=== PATIENT | male | born 1955 | race Caucasian/White ===

== ENCOUNTER → 2017-08-30 08:22 | Outpatient (CLI) | payer OTHER, SELFPAY ==
[2017-08-30 11:15] LABS: Uric Acid 8.2 mg/dL (3.5-8.5)
== END ==
PROVIDERS: PCP Family Medicine; Visit Provider Family Medicine
DX: M79.676 Pain in unspecified toe(s) (principal)
CPT/HCPCS: 36415; 84550

== ENCOUNTER → 2018-07-15 14:29 | Outpatient (CLI) | payer OTHER, SELFPAY ==
[2018-07-15 14:57] LABS: Add Manual Diff / Slide Review NO; Basophils Absolute Auto 100 /uL (0-100); Basophils Percent Auto 0.9 % (0-2); Eosinophils Absolute Auto 300 /uL (0-450); Eosinophils Percent Auto 4.7 % (2-4); Hematocrit 43.1 % (41-53); Hemoglobin 14.7 g/dL (13.5-17.5); Lymphocytes Absolute Auto 1600 /uL (1100-4500); Lymphocytes Percent Auto 25.1 % (25-40); Mean Corpuscular HGB Conc 34.1 % (30-36); Mean Corpuscular Hemoglobin 31.6 PG (26-34); Mean Corpuscular Volume 92.6 fL (80-100); Monocytes Absolute Auto 500 /uL (0-900); Monocytes Percent Auto 7.6 % (3-14); Neutrophils Absolute Auto 4000 /uL (1500-7000); Neutrophils Percent Auto 61.7 % (50-75); Platelet Count 274 X10^3/uL (150-400); Red Blood Cell Count 4.65 X10^6/uL (4.5-5.9); Red Cell Distribution Width 14.6 % (11.6-14.8); White Blood Cell Count 6.4 X10^3/uL (4.5-11.0)
[2018-07-15 15:31] LABS: Alanine Aminotransferase 60 IU/L (21-72); Albumin 4.6 g/dL (3.5-5.0); Albumin Globulin Ratio 1.6 (1.0-2.8); Alkaline Phosphatase 61 U/L (38-126); Aspartate Aminotransferase 37 IU/L (17-59); BUN Creatinine Ratio 14.4 (6-22); Bilirubin Total 0.6 mg/dL (0.2-1.3); Blood Urea Nitrogen 13 mg/dL (9-20); Carbon Dioxide 18 mmol/L (22-32); Chloride 96 mmol/L (98-107); Cholesterol 185 mg/dL (140-199); Estimated Glomerular Filt Rate > 60.0 mL/min (>60); Globulin 2.8 g/dL (1.7-4.1); Glucose 105 mg/dL (80-110); HDL Cholesterol 49 mg/dL (40-60); HEMOLYSIS < 15 (0-50); LDL Cholesterol Calculated 120 mg/dL (<100); Potassium 4.5 mmol/L (3.4-5.1); Sodium 130 mmol/L (137-145); Total Protein 7.4 g/dL (6.3-8.2); Triglycerides 82 mg/dL (35-150)
[2018-07-15 16:00] LABS: Prostate Specific Antigen Scrn 0.421 ng/mL (0.1-4.0); Thyroid Stimulating Hormone 1.86 uIU/mL (0.47-4.68)
== END ==
PROVIDERS: PCP Family Medicine; Visit Provider Family Medicine
DX: Z00.00 Encounter for general adult medical examination without abnormal findings (principal); Z12.5 Encounter for screening for malignant neoplasm of prostate
CPT/HCPCS: 36415; 80053; 80061; 84443; 85025; G0103

== ENCOUNTER → 2019-02-12 13:22 | Outpatient (CLI) | payer OTHER, SELFPAY | PROVIDERS: PCP Family Medicine; Visit Provider Physician Assistant | DX: J02.9 Acute pharyngitis, unspecified (principal) | CPT/HCPCS: 87070 ==

== ENCOUNTER → 2019-08-26 10:43 | Outpatient (CLI) | payer OTHER, SELFPAY ==
[2019-08-26 12:27] LABS: BUN Creatinine Ratio 13.9 (6-22); Blood Urea Nitrogen 11 mg/dL (9-20); Calcium 9.7 mg/dL (8.4-10.2); Carbon Dioxide 21 mmol/L (22-32); Chloride 101 mmol/L (98-107); Cholesterol 190 mg/dL (140-199); Estimated Glomerular Filt Rate > 60.0 mL/min (>60); Glucose 112 mg/dL (80-110); HDL Cholesterol 52 mg/dL (40-60); HEMOLYSIS < 15 (0-50); LDL Cholesterol Calculated 121 mg/dL (<100); Potassium 4.5 mmol/L (3.4-5.1); Sodium 133 mmol/L (137-145); Triglycerides 84 mg/dL (35-150)
[2019-08-26 12:34] LABS: Creatinine Urine Random 55.3 mg/dL
[2019-08-26 12:47] LABS: Microalbumi Creatinin Ratio Ur 10.8 ug/mg CR (<30); Microalbumin Urine Random < 0.6 mg/dL (0-1.6)
== END ==
PROVIDERS: PCP Family Medicine; Referring Provider Family Medicine; Visit Provider Family Medicine
DX: E78.5 Hyperlipidemia, unspecified (principal); I10 Essential (primary) hypertension
CPT/HCPCS: 36415; 80048; 80061; 82043; 82570

== ENCOUNTER 2019-11-06 14:25 | Emergency (ER) | payer OTHER, SELFPAY ==
[2019-11-06 14:28] VITALS: BP 205/102; PULSE 86; RESP 23; TEMP 36.9; O2SAT 97; BMI 28.5
--- NOTE | 2019-11-06 14:41 | DI.RAD.S_ITS ---
PROCEDURE: XR CHEST 1V INDICATIONS: chest pain TECHNIQUE: One view of the chest was acquired. COMPARISON: [facility], CT, ANGIOGRAPHY CHEST, 05/08/2017, 9:15. FINDINGS: Surgical changes and devices: None. Lungs and pleura: No infiltrates. Trace blunting of the costophrenic angles bilaterally. Mediastinum: Mediastinal contours appear normal. Heart size is normal. Bones and chest wall: No suspicious bony lesions. Overlying soft tissues appear unremarkable. IMPRESSION: Trace costophrenic angle blunting possibly related to scarring versus trace effusions. Dictated by: Elvia Escobedo M.D. on 11/06/2019 at 15:04 Approved by: Elvia Escobedo M.D. on 11/06/2019 at 15:04
[2019-11-06 14:45] LABS: Add Manual Diff / Slide Review NO; Basophils Absolute Auto 0 /uL (0-100); Basophils Percent Auto 0.3 % (0-2); Eosinophils Absolute Auto 100 /uL (0-450); Eosinophils Percent Auto 1.7 % (2-4); Hematocrit 42.1 % (41-53); Hemoglobin 14.2 g/dL (13.5-17.5); Lymphocytes Absolute Auto 1800 /uL (1100-4500); Lymphocytes Percent Auto 25.4 % (25-40); Mean Corpuscular HGB Conc 33.9 % (30-36); Mean Corpuscular Hemoglobin 32.4 PG (26-34); Mean Corpuscular Volume 95.6 fL (80-100); Monocytes Absolute Auto 500 /uL (0-900); Monocytes Percent Auto 7.6 % (3-14); Neutrophils Absolute Auto 4500 /uL (1500-7000); Platelet Count 261 X10^3/uL (150-400); Red Cell Distribution Width 13.3 % (11.6-14.8)
--- NOTE | 2019-11-06 14:47 | PC.NURSE ---
xray at bedside
[2019-11-06 14:51] LABS: Prothrombin Time 11.5 SECONDS (10.1-12.7)
[2019-11-06 14:53] LABS: PTT Partial Thromboplastin Tim 31 SECONDS (26.4-36.2)
[2019-11-06 14:56] LABS: Alanine Aminotransferase 56 IU/L (<50); Albumin 4.5 g/dL (3.5-5.0); Albumin Globulin Ratio 1.4 (1.0-2.8); Alkaline Phosphatase 63 U/L (38-126); Aspartate Aminotransferase 42 IU/L (17-59); BUN Creatinine Ratio 11.8 (6-22); Bilirubin Total 0.4 mg/dL (0.2-1.3); Blood Urea Nitrogen 9 mg/dL (9-20); Calcium 9.1 mg/dL (8.4-10.2); Carbon Dioxide 24 mmol/L (22-32); Chloride 101 mmol/L (98-107); Creatine Kinase 229 U/L (55-170); Estimated Glomerular Filt Rate > 60.0 mL/min (>60); Globulin 3.2 g/dL (1.7-4.1); Glucose 112 mg/dL (80-110); HEMOLYSIS 19 (0-50); Lipase 152 U/L (23-300); Potassium 4.3 mmol/L (3.4-5.1); Sodium 134 mmol/L (137-145); Total Protein 7.7 g/dL (6.3-8.2)
[2019-11-06 15:07] LABS: Troponin I < 0.012 ng/mL (0.01-0.034)
[2019-11-06 15:11] LABS: CKMB % Relative Index 0.9 % (1.5-5.0)
--- NOTE | 2019-11-06 15:11 | PC.NURSE ---
at bedside for eval
[2019-11-06 15:19] VITALS: PULSE 69; RESP 12; O2SAT 95
--- NOTE | 2019-11-06 15:28 | ED_ITS ---
HPI - Chest Pain General Chief Complaint: Chest Pain Stated Complaint: chest pain Time Seen by Provider: 11/06/19 14:36 Source: patient Mode of arrival: Ambulatory Limitations: no limitations History of Present Illness HPI narrative: Patient here with . Patient complains of off and on left- sided chest pressure 3/5 for the past 7 days. Blood pressure management by patient at home by weight loss has helped. Since March and April of this year. Blood pressure improved earlier this year but then elevated a few weeks ago and then went down to current level now. Not had stress test in almost [address] Radha amaya. History of thoracic aneurysm without surgery. Denies any syncope numbness tingling weakness or back pain. No abdominal pain. Has off and on dizziness as well in the past 7 days. None currently. No chest pain at this time. Blood pressure noted on arrival but has improved, 140/70 Patient took full aspirin prior to arrival Related Data Previous Rx's Medication Instructions Recorded amlodipine 2.5 mg tablet 5 mg PO DAILY #120 tab 09/16/19 lisinopril 20 mg tablet 20 mg PO QDAY #90 tab 09/16/19 Allergies Allergy/AdvReac Type Severity Reaction Status Date / Time No Known Drug Allergies Allergy Verified 11/06/19 14:34 Review of Systems Review of Systems Narrative: GENERAL: Denies chills, fatigue, malaise, fever, sweats. HEENT: Denies sinus pain, ear pain, sore throat, difficulty swallowing, dizziness. RESPIRATORY: Denies dyspnea, cough, wheezing, hemoptysis, sputum. CARDIOVASCULAR: Complains of chest pain, denies palpitations, orthopnea, edema, GASTROINTESTINAL: Denies nausea, vomiting, abdominal pain, diarrhea, constipation, melena. : Denies dysuria, frequency, incontinence, hematuria, urinary retention. MUSCULOSKELETAL: denies weakness, joint pain, or bony pain SKIN: Denies rash, skin lesions, or other NEUROLOGIC: Denies weakness, headache, numbness, change in speech, confusion, seizures, incoordination. Complains of dizziness PSYCHIATRIC: No concerning psychosocial issues. 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 Gym: Cardio/muscle. Smoking Status: Former smoker alcohol intake frequency: 3 or more drinks per day Substance Use Type: does not use Exam Narrative Exam Narrative: GENERAL: patient appears stated age. Well-nourished, well- developed patient, in no distress, not toxic HEAD: Atraumatic. Normocephalic. EYES: Pupils equal round and reactive. Extraocular motions intact. No scleral icterus. No injection or drainage. ENT: Nose without bleeding, purulent drainage. Throat without erythema, tonsillar hypertrophy or exudate. Airway patent. NECK: Trachea midline. Non tender CARDIOVASCULAR: Regular rate and rhythm without murmurs, gallops, or rubs. Strong bilateral radial and carotid pulses RESPIRATORY: Clear to auscultation. Breath sounds equal bilaterally. No wheezes, rales, or rhonchi. GASTROINTESTINAL: Abdomen soft, non-tender, nondistended. EXTREMITIES: No edema or joint tenderness. BACK: Nontender without deformity or crepitance. No flank tenderness. NEURO: AOx4. SKIN: No rash or erythema of visible areas PSYCH: Not anxious, is cooperative Initial Vital Signs Initial Vital Signs: Vital Signs Temperature 98.5 F 11/06/19 14:28 Pulse Rate 86 11/06/19 14:28 Respiratory Rate 23 11/06/19 14:28 Blood Pressure 205/102 H 11/06/19 14:28 Pulse Oximetry 97 11/06/19 14:28 Course Course Course Narrative: Ongoing chest pain through his past 7 days. Currently no chest pain. No stress test in the past 30 years. Decision to Admit Date: 11/06/19 Decision to Admit time: 16:03 Orders Ordered: ED Orders 11/06/19 14:30 EKG-12 Lead Routine 11/06/19 14:39 Complete Blood Count AUTO DIFF Stat Comprehensive Metabolic Panel Stat Lipase Stat Partial Thromboplastin Time Stat Prothrombin Time INR Stat Troponin & CK Cardiac Panel Stat 11/06/19 14:41 XR chest 1V Stat 11/06/19 15:27 CT angio chest PE protocol Stat Discontinued Medications Sodium Chloride (Normal Saline 0.9%) 500 mls @ 1,000 mls/hr IV BOLUS ONE Stop: 11/06/19 16:05 Last Infusion: 11/06/19 17:30 Dose: 1,000 mls/hr Documented by: Admin: 11/06/19 16:16 Dose: 1,000 mls/hr Documented by: ROJAS Reevaluation(s) Reevaluation #1: Blood pressures improved. Currently no chest pain. Reviewed results with patient and . They agree for transfer to [facility] Time: 16:03 Consultations Consultation #1: Spoke with primary care on-call, Dr. Prabhakar, nuclear med unable to do stress test tomorrow due to scheduling overload, he was suggest patient then would need to be transferred to [place] or [place] Time: 15:47 Consultation #2: Spoke with [facility], hospitalist Dr De La Cruz Will admit Time: 16:05 Vital Signs Vital signs: Vital Signs - 8 hr 11/06/19 14:28 11/06/19 15:19 11/06/19 15:30 Temperature 98.5 F Pulse Rate 86 69 65 Respiratory Rate 23 12 11 L Blood Pressure 205/102 H Pulse Oximetry 97 95 95 11/06/19 16:05 11/06/19 17:33 Temperature Pulse Rate 58 L 68 Respiratory Rate 18 18 Blood Pressure 148/86 H 148/86 H Pulse Oximetry 96 97 MDM - Chest Pain Differential Diagnosis Differential diagnosis: Likely stable angina, unstable angina pectoris, atypical chest pain and other (Aortic dissection) Lab Data Attestation: I reviewed the patient's lab results. Result diagrams: 11/06/19 14:39 09/03/20 14:39 Labs: Lab Results 11/06/19 11/06/19 11/06/19 Range/Units 14:39 14:39 14:39 WBC 7.0 (4.5-11.0) X10^3/uL RBC 4.40 L (4.5-5.9) X10^6/uL Hgb 14.2 (13.5-17.5) g/dL Hct 42.1 (41-53) % MCV 95.6 (80-100) fL MCH 32.4 (26-34) PG MCHC 33.9 (30-36) % RDW 13.3 (11.6-14.8) % Plt Count 261 (150-400) X10^3/uL Neut % (Auto) 65.0 (50-75) % Lymph % (Auto) 25.4 (25-40) % [place] % (Auto) 7.6 (3-14) % Eos % (Auto) 1.7 L (2-4) % Baso % (Auto) 0.3 (0-2) % Neut # (Auto) 4500 (5439-5581) /uL Lymph # (Auto) 1800 (6969-1675) /uL [place] # (Auto) 500 (0-900) /uL Eos # (Auto) 100 (0-450) /uL Baso # (Auto) 0 (0-100) /uL PT 11.5 (10.1-12.7) SECONDS INR 1.0 (0.9-1.3) APTT 31 (26.4-36.2) SECONDS Sodium 134 L (137-145) mmol/L Potassium 4.3 (3.4-5.1) mmol/L Chloride 101 (98-107) mmol/L Carbon Dioxide 24 (22-32) mmol/L BUN 9 (9-20) mg/dL Creatinine 0.76 (0.66-1.25) mg/dL Estimated GFR > 60.0 (>60) mL/min BUN/Creatinine Ratio 11.8 (6-22) Glucose 112 H (80-110) mg/dL Calcium 9.1 (8.4-10.2) mg/dL Total Bilirubin 0.4 (0.2-1.3) mg/dL AST 42 (17-59) IU/L ALT 56 H (<50) IU/L Alkaline Phosphatase 63 (38-126) U/L Total Creatine Kinase 229 H (55-170) U/L CK-MB (CK-2) 2.00 (<2.37) ng/mL CK-MB (CK-2) Rel Index 0.9 L (1.5-5.0) % Troponin I < 0.012 (0.01-0.034) ng/mL Total Protein 7.7 (6.3-8.2) g/dL Albumin 4.5 (3.5-5.0) g/dL Globulin 3.2 (1.7-4.1) g/dL Albumin/Globulin Ratio 1.4 (1.0-2.8) Lipase 152 (23-300) U/L Urine Dip Bedside Urine Glucose Negative Bedside Urine Bilirubin - Negative Bedside Urine Ketone - Negative Urine Specific [place] 1.005 Bedside Urine Occult Blood - Negative Bedside Urine pH 6.0 Bedside Urine Protein - Negative Bedside Urine Urobilinogen +/- 1mg Bedside Urine Nitrite - Negative Bedside Urine Leukocytes - Negative Esterase Imaging Data Chest x-ray: Radiologist's Impression: [address] [address] XRay Report Signed Patient: Theo Kovacs JMR#: [id number] : 6Acct:[id number] Age/Sex: 64 / MDate of Service: 11/06/19 Loc: ED Accession Number: [id number] Procedure: XR chest 1V Ordering Provider: Shun Thompson MD PROCEDURE: XR CHEST 1V INDICATIONS: chest pain TECHNIQUE: One view of the chest was acquired. COMPARISON: [facility], CT, ANGIOGRAPHY CHEST, 05/08/2017, 9:15. FINDINGS: Surgical changes and devices: None. Lungs and pleura: No infiltrates. Trace blunting of the costophrenic angles bilaterally. Mediastinum: Mediastinal contours appear normal. Heart size is normal. Bones and chest wall: No suspicious bony lesions. Overlying soft tissues appear unremarkable. IMPRESSION: Trace costophrenic angle blunting possibly related to scarring versus trace effusions. Dictated by: Elvia Escobedo M.D. on 11/06/2019 at 15:04 Approved by: Elvia Escobedo M.D. on 11/06/2019 at 15:04 CT scan - chest: Radiologist's Impression: [place] [id number] [place] [id number] [address] Scan Report Signed Patient: Theo Kovacs JMR#: [id number] : 6Acct:[id number] Age/Sex: 64 / MDate of Service: 11/06/19 Loc: ED Accession Number: [id number] Procedure: CT angio chest PE protocol Ordering Provider: Shun Thompson MD PROCEDURE: CT ANGIO CHEST PE PROTOCOL INDICATIONS: Chest pain TECHNIQUE: After the administration of intravenous contrast, 2 mm thick sections acquired from the pulmonary apices to the posterior costophrenic angles. 3-dimensional maximum intensity projection (MIP) coronal and sagittal reformats were then acquired through the thorax. For radiation dose reduction, the following was used: automated exposure control, adjustment of mA and/or kV according to patient size. COMPARISON: [facility], CR, XR CHEST 1V, 11/06/2019, 14:43. [facility], CT, ANGIOGRAPHY CHEST, 05/08/2017, 9:15. [facility], CT, ANGIOGRAPHY CHEST, 04/19/2016, 9:41. FINDINGS: Image quality: Excellent. Pulmonary arteries: Pulmonary arteries are normal in size, and demonstrate no intraluminal filling defects to suggest central pulmonary embolism. Lungs and pleura: 3 mm right middle lobe nodule series 5, image 172. While it is relatively stable since prior exam in 2018, it previously measured approximately 18 mm in 2017. No pleural effusions or pneumothorax. Central and peripheral airways are patent. Mediastinum: Heart size is normal, without pericardial effusion. No mediastinal or hilar adenopathy. Thoracic aorta is normal in caliber and enhancement. Esophagus is normal in caliber, with mild hiatal hernia. Bones and chest wall: No suspicious bony lesions. Ribs and thoracic spine appear intact throughout. Thyroid gland is unremarkable . No axillary or supraclavicular adenopathy. Abdomen: Visualized upper abdominal solid organs appear normal in the early arterial phase of enhancement. IMPRESSION: 1. No pulmonary embolism. No effusions. 2. 3 mm right middle lobe nodule, increased in size from 18 mm in 2017, although cysts stable since 2018. 6-12 month interval follow-up is recommended to document s tability. Dictated by: Elvia Escobedo M.D. on 11/06/2019 at 15:43 Approved by: Elvia Escobedo M.D. on 11/06/2019 at 15:47 ECG Data Attestation: I personally reviewed and interpreted this ECG as follows: Interpretation: Sinus rhythm, rate 73, no ST elevation or depression MDM Narrative Medical decision making narrative: Appropriate for admission/transfer as patient has had waxing waning left-sided chest pressure. Last stress test over 30 years ago. Discharge Plan Departure Patient Disposition: [facility] Clinical Impression: Chest pain Qualifiers: Chest pain type: unspecified Qualified Code(s): R07.9 - Chest pain, unspecified Discharge Date/Time: 11/06/19 17:34 Prescriptions: No Action amlodipine 2.5 mg tablet 5 mg PO DAILY Qty: 120 RF: 3 lisinopril 20 mg tablet 20 mg PO QDAY Qty: 90 RF: 3 Referrals: Viola Garcia MD [Primary Care Provider] -
[2019-11-06 15:30] VITALS: PULSE 65; RESP 11; O2SAT 95
[2019-11-06 16:05] VITALS: BP 148/86; PULSE 58; RESP 18; O2SAT 96
[2019-11-06] MEDS: SODIUM CHLORIDE 0.9% 500 ML 1000 ML IV (16:16)
[2019-11-06 17:33] VITALS: BP 148/86; PULSE 68; RESP 18; O2SAT 97
== END 2019-11-06 17:34 | disposition short-term general hospital (02) ==
PROVIDERS: Emergency Provider Emergency Medicine; PCP Family Medicine
DX: R07.9 Chest pain, unspecified (principal); R42 Dizziness and giddiness
CPT/HCPCS: 36415; 71045; 71275; 80053; 81003; 82550; 82553; 83690; 84484; 85025; 85610; 85730; 93005; 96360; 99284; Q9967

== ENCOUNTER → 2020-09-10 09:46 | Outpatient (CLI) | payer MEDICARE, SELFPAY ==
[2020-09-10 10:50] LABS: Alanine Aminotransferase 64 IU/L (<50); Albumin 4.2 g/dL (3.5-5.0); Albumin Globulin Ratio 1.5 (1.0-2.8); Alkaline Phosphatase 50 U/L (38-126); Aspartate Aminotransferase 47 IU/L (17-59); Bilirubin Total 0.3 mg/dL (0.2-1.3); Blood Urea Nitrogen 15 mg/dL (9-20); Calcium 9.2 mg/dL (8.4-10.2); Carbon Dioxide 24 mmol/L (22-32); Chloride 105 mmol/L (98-107); Cholesterol 159 mg/dL (140-199); Estimated Glomerular Filt Rate > 60.0 mL/min (>60); Globulin 2.8 g/dL (1.7-4.1); HDL Cholesterol 51 mg/dL (40-60); HEMOLYSIS < 15 (0-50); LDL Cholesterol Calculated 93 mg/dL (<100); Potassium 4.3 mmol/L (3.4-5.1); Sodium 137 mmol/L (137-145); Triglycerides 76 mg/dL (35-150)
[2020-09-10 11:06] LABS: Glucose 123 mg/dL (80-110)
[2020-09-10 11:30] LABS: Creatinine Urine Random 139.1 mg/dL
[2020-09-10 11:34] LABS: Microalbumi Creatinin Ratio Ur 12.2 ug/mg CR (<30); Microalbumin Urine Random 1.7 mg/dL (0-1.6)
== END ==
PROVIDERS: PCP Family Medicine; Referring Provider Family Medicine; Visit Provider Family Medicine
DX: I10 Essential (primary) hypertension (principal)
CPT/HCPCS: 36415; 80053; 80061; 82043; 82570

== ENCOUNTER 2020-10-26 08:48 | Emergency (ER) | payer MEDICARE, SELFPAY ==
[2020-10-26 09:13] VITALS: BP 149/89; PULSE 96; RESP 18; TEMP 36.5; O2SAT 96; BMI 29.9
--- NOTE | 2020-10-26 09:58 | ED.GENADULT ---
HPI - General Adult General Chief complaint: Abdominal Pain Stated complaint: LT SIDE PAIN/LOWER ABDOMINAL Time Seen by Provider: 10/26/20 09:54 History of Present Illness HPI narrative: Patient is a 65-year-old male here for evaluation of 3-4 days of left-sided abdominal discomfort. Has not had any nausea or vomiting. No fevers. No urinary symptoms. Has not had a bowel movement in the past couple days. Has had colonoscopies in the past and all have been unremarkable per his report. He has had his gallbladder removed and also hernia repairs in the past. Has not tried anything for his symptoms. Has not seen anybody for symptoms prior to this evaluation. Related Data Previous Rx's Medication Instructions Recorded amlodipine 2.5 mg tablet 5 mg PO DAILY #180 tab 09/13/20 indomethacin 50 mg capsule 50 mg PO TID PRN #60 cap 09/13/20 lisinopril 20 mg tablet See Rx Instructions .ROUTE 09/13/20 .COMPLEX #90 tab amoxicillin 875 mg-potassium 1 tab PO BID 10 Days #20 tab 10/26/20 clavulanate 125 mg tablet (Augmentin) Allergies Allergy/AdvReac Type Severity Reaction Status Date / Time No Known Drug Allergies Allergy Verified 09/09/20 11:10 Review of Systems Constitutional Constitutional: Denies fever(s) Cardiovascular Cardiovascular: Reports system reviewed and no additional complaints, except as documented Respiratory Respiratory: Reports system reviewed and no additional complaints, except as documented Gastrointestinal Gastrointestinal: Reports as per HPI Genitourinary Genitourinary: Reports system reviewed and no additional complaints, except as documented Musculoskeletal Musculoskeletal: Reports back pain Integumentary/Breasts Skin/Breast: Reports system reviewed and no additional complaints, except as documented Neurologic Neurologic: Reports system reviewed and no additional complaints, except as documented Hematologic/Lymphatic On Anticoagulants: No Allergic/Immunologic Allergic/Immunologic: Reports system reviewed and no additional complaints, except as documented Patient History Medical History (Updated 10/26/20 @ 13:21 by Joo Germain DO) ADHD Essential hypertension (03/29/16) Hyponatremia (04/05/16) Thoracic aortic aneurysm without rupture (04/05/16) Surgical History Status post cholecystectomy (08/19/14) Status post hernia repair Social History (Reviewed 10/26/20 @ 10:00 by TARAS Dunn education level: other occupational status: other 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 Gym: Cardio/muscle. Smoking Status: Former smoker alcohol intake frequency: 3 or more drinks per day Substance Use Type: does not use Exam Initial Vital Signs Initial Vital Signs: Vital Signs Temperature 97.7 F 10/26/20 09:13 Pulse Rate 96 H 10/26/20 09:13 Respiratory Rate 18 10/26/20 09:13 Blood Pressure 149/89 H 10/26/20 09:13 Pulse Oximetry 96 10/26/20 09:13 Const General: cooperative and comfortable HENMT Head: normal to inspection and normocephalic Resp Effort & Inspection: normal respiratory effort Cardio Rate: regular rate GI Inspection: normal to inspection Palpation: soft and tender (Left-sided abdomen) Back/Spine/Pelvis Back: No CVA tenderness Skin General: no rashes or lesions noted Neuro General: patient alert, patient awake, patient oriented x3 and moves all extremities Extrem General: normal to inspection and capillary refill normal Psych Appearance: grossly normal and well kempt Course Orders Ordered: ED Orders 10/26/20 09:57 Complete Blood Count AUTO DIFF Stat Comprehensive Metabolic Panel Stat Lipase Stat 10/26/20 10:23 EKG-12 Lead Stat 10/26/20 10:38 CT abdomen pelvis w con Stat Discontinued Medications Sodium Chloride (Normal Saline 0.9%) 1,000 mls @ 1,000 mls/hr IV BOLUS ONE Stop: 10/26/20 10:56 Last Infusion: 10/26/20 12:47 Dose: 0 mls/hr Documented by: Admin: 10/26/20 11:37 Dose: 1,000 mls/hr Documented by: JOE Vital Signs Vital signs: Vital Signs - 8 hr 10/26/20 09:13 10/26/20 11:35 10/26/20 12:30 Temperature 97.7 F Pulse Rate 96 H 85 79 Respiratory Rate 18 16 15 Blood Pressure 149/89 H 153/85 H 142/79 H Pulse Oximetry 96 97 96 10/26/20 13:10 Temperature Pulse Rate 79 Respiratory Rate 16 Blood Pressure 136/79 Pulse Oximetry 98 Medical Decision Making Lab Data Lab results reviewed: Yes I reviewed the patient's lab results. Result diagrams: 10/26/20 09:57 10/26/20 09:57 Labs: Lab Results 10/26/20 10/26/20 Range/Units 09:57 09:57 WBC 9.7 (4.5-11.0) X10^3/uL RBC 4.51 (4.5-5.9) X10^6/uL Hgb 14.6 (13.5-17.5) g/dL Hct 42.8 (41-53) % MCV 94.9 (80-100) fL MCH 32.3 (26-34) PG MCHC 34.1 (30-36) % RDW 13.3 (11.6-14.8) % Plt Count 269 (150-400) X10^3/uL Neut % (Auto) 79.2 H (50-75) % Lymph % (Auto) 12.3 L (25-40) % [place] % (Auto) 7.8 (3-14) % Eos % (Auto) 0.5 L (2-4) % Baso % (Auto) 0.2 (0-2) % Neut # (Auto) 7700 H (6994-6274) /uL Lymph # (Auto) 1200 (6459-8276) /uL [place] # (Auto) 800 (0-900) /uL Eos # (Auto) 0 (0-450) /uL Baso # (Auto) 0 (0-100) /uL Sodium 131 L (137-145) mmol/L Potassium 4.4 (3.4-5.1) mmol/L Chloride 99 (98-107) mmol/L Carbon Dioxide 23 (22-32) mmol/L BUN 12 (9-20) mg/dL Creatinine 0.83 (0.66-1.25) mg/dL Estimated GFR > 60.0 (>60) mL/min BUN/Creatinine Ratio 14.5 (6-22) Glucose 120 H (80-110) mg/dL Calcium 9.6 (8.4-10.2) mg/dL Total Bilirubin 0.6 (0.2-1.3) mg/dL AST 70 H (17-59) IU/L ALT 117 H (<50) IU/L Alkaline Phosphatase 61 (38-126) U/L Total Protein 7.6 (6.3-8.2) g/dL Albumin 4.2 (3.5-5.0) g/dL Globulin 3.4 (1.7-4.1) g/dL Albumin/Globulin Ratio 1.2 (1.0-2.8) Lipase 169 (23-300) U/L Urine Dip Bedside Urine Glucose Negative Bedside Urine Bilirubin - Negative Bedside Urine Ketone + 15 Urine Specific [place] 1.010 Bedside Urine Occult Blood - Negative Bedside Urine pH 6.0 Bedside Urine Protein - Negative Bedside Urine Urobilinogen - Negative Bedside Urine Nitrite - Negative Bedside Urine Leukocytes - Negative Esterase Point of care testing: Urine Dip Bedside Urine Glucose Negative Bedside Urine Bilirubin - Negative Bedside Urine Ketone + 15 Urine Specific [place] 1.010 Bedside Urine Occult Blood - Negative Bedside Urine pH 6.0 Bedside Urine Protein - Negative Bedside Urine Urobilinogen - Negative Bedside Urine Nitrite - Negative Bedside Urine Leukocytes - Negative Esterase Imaging Data CT scan - abdomen/pelvis: Radiologist's Impression: [address] [id number] Scan ReportSigned Patient: Theo Kovacs JMR#: [id number]: 6Acct:[id number]/Sex: 65 / MDate of Service: 10/26/20Loc: EDAccession Number: [id number] Procedure: CT abdomen pelvis w con Ordering Provider: Joo Germain D.O. PROCEDURE: CT ABDOMEN PELVIS W CON INDICATIONS: Left-sided abdominal pain TECHNIQUE: After the administration of intravenous contrast, axial sections acquired from the lung bases to the pubic symphysis. Coronal and sagittal reformats were performed. For radiation dose reduction, the following was used: automated exposure control, adjustment of mA and/or kV according to patient size. COMPARISON: [facility], CT, CT ANGIO CHEST PE PROTOCOL, 11/06/2019, 15:29. FINDINGS: Image quality: Excellent. Lung bases: Mild right basilar infiltrate or atelectasis. Small hiatal hernia. Heart: Heart size is normal. There is ifct-fa-bhcfjigc coronary artery calcification. ABDOMEN: Liver: Liver is normal in size. There is hepatic steatosis. Gallbladder: Surgically absent Biliary ducts: Unremarkable. Pancreas: Unremarkable. Spleen: Unremarkable. Adrenal Glands: Unremarkable. Kidneys and Ureters: Unremarkable. Stomach and Bowel: Stomach, small bowel loops, and colon are normal in caliber. There are scattered colonic diverticula. There is mild focal thickening and pericolonic stranding the descending colon involving the colonic diverticulum consistent with acute diverticulitis. There is a appendicoliths at the base of the appendix. Appendix is normal in caliber without periappendiceal stranding. Peritoneum: No abnormal intraperitoneal fluid. No free air. Ventral Wall: No hernias. Abdominal Nodes: No retroperitoneal or mesenteric adenopathy by size criteria. Vessels: Aorta and inferior vena cava are normal in size. Taoavceu-[id number] atherosclerotic calcifications. PELVIS: Pelvic Organs: Unremarkable. Bladder: Unremarkable. Pelvic Nodes: No enlarged lymph nodes. Miscellaneous: Small fat containing right inguinal hernia is seen. Bones: Moderate to severe degenerative changes in lumbar spine. IMPRESSION: 1. Acute diverticulitis of the descending colon. 2. Mild right basilar infiltrate or atelectasis. 3. Hepatic steatosis. 4. Small hiatal hernia. Dictated by: Dequan Castrejon M.D. on 10/26/2020 at 12:27 Approved by: Dequan aCstrejon M.D. on 10/26/2020 at 12:34 ECG Data Attestation: I personally reviewed and interpreted this ECG as follows: Interpretation: Sinus rhythm Ventricular rate 90 Normal axis Normal QRS Normal QTC No ST T wave changes MDM Narrative Medical decision making narrative: Labs are unremarkable. CT scan does show acute diverticulitis without signs of abscess or perforation. I did discuss the diagnosis with the patient and family at bedside. Given his history of an aortic aneurysm we will hold on given any Cipro and will send him home on Augmentin. Patient was given return precautions and follow-up instructions. He expressed understanding and agreement. Discharge Plan Departure Patient Disposition: Home Clinical Impression: Diverticulitis Instructions: DI for Diverticulitis Activity Restrictions/Additional Instructions: Antibiotics were electronically transmitted to [employer]. Please start taking them as directed. Contact your primary doctor for a follow-up. Return to the emergency department for new or worsening symptoms. Prescriptions: New amoxicillin-pot clavulanate [Augmentin] 875-125 mg tablet 1 tab PO BID 10 Days Qty: 20 RF: 0 No Action amlodipine 2.5 mg tablet 5 mg PO DAILY Qty: 180 RF: 2 lisinopril 20 mg tablet See Rx Instructions .ROUTE .COMPLEX Qty: 90 RF: 2 indomethacin 50 mg capsule 50 mg PO TID PRN (Reason: gout flareups) Qty: 60 RF: 1 Referrals: Viola Garcia MD [Primary Care Provider] -
[2020-10-26 10:19] LABS: Add Manual Diff / Slide Review NO; Basophils Absolute Auto 0 /uL (0-100); Basophils Percent Auto 0.2 % (0-2); Eosinophils Absolute Auto 0 /uL (0-450); Eosinophils Percent Auto 0.5 % (2-4); Hematocrit 42.8 % (41-53); Hemoglobin 14.6 g/dL (13.5-17.5); Lymphocytes Absolute Auto 1200 /uL (1100-4500); Lymphocytes Percent Auto 12.3 % (25-40); Mean Corpuscular HGB Conc 34.1 % (30-36); Mean Corpuscular Hemoglobin 32.3 PG (26-34); Mean Corpuscular Volume 94.9 fL (80-100); Monocytes Absolute Auto 800 /uL (0-900); Monocytes Percent Auto 7.8 % (3-14); Neutrophils Absolute Auto 7700 /uL (1500-7000); Neutrophils Percent Auto 79.2 % (50-75); Platelet Count 269 X10^3/uL (150-400); Red Blood Cell Count 4.51 X10^6/uL (4.5-5.9); Red Cell Distribution Width 13.3 % (11.6-14.8); White Blood Cell Count 9.7 X10^3/uL (4.5-11.0)
[2020-10-26 10:37] LABS: Alanine Aminotransferase 117 IU/L (<50); Albumin 4.2 g/dL (3.5-5.0); Albumin Globulin Ratio 1.2 (1.0-2.8); Alkaline Phosphatase 61 U/L (38-126); Aspartate Aminotransferase 70 IU/L (17-59); BUN Creatinine Ratio 14.5 (6-22); Bilirubin Total 0.6 mg/dL (0.2-1.3); Blood Urea Nitrogen 12 mg/dL (9-20); Calcium 9.6 mg/dL (8.4-10.2); Carbon Dioxide 23 mmol/L (22-32); Chloride 99 mmol/L (98-107); Estimated Glomerular Filt Rate > 60.0 mL/min (>60); Globulin 3.4 g/dL (1.7-4.1); Glucose 120 mg/dL (80-110); HEMOLYSIS < 15 (0-50); Lipase 169 U/L (23-300); Potassium 4.4 mmol/L (3.4-5.1); Sodium 131 mmol/L (137-145); Total Protein 7.6 g/dL (6.3-8.2)
--- NOTE | 2020-10-26 10:38 | DI.CT.S_ITS ---
PROCEDURE: CT ABDOMEN PELVIS W CON INDICATIONS: Left-sided abdominal pain TECHNIQUE: After the administration of intravenous contrast, axial sections acquired from the lung bases to the pubic symphysis. Coronal and sagittal reformats were performed. For radiation dose reduction, the following was used: automated exposure control, adjustment of mA and/or kV according to patient size. COMPARISON: [facility], CT, CT ANGIO CHEST PE PROTOCOL, 11/06/2019, 15:29. FINDINGS: Image quality: Excellent. Lung bases: Mild right basilar infiltrate or atelectasis. Small hiatal hernia. Heart: Heart size is normal. There is [id number] coronary artery calcification. ABDOMEN: Liver: Liver is normal in size. There is hepatic steatosis. Gallbladder: Surgically absent Biliary ducts: Unremarkable. Pancreas: Unremarkable. Spleen: Unremarkable. Adrenal Glands: Unremarkable. Kidneys and Ureters: Unremarkable. Stomach and Bowel: Stomach, small bowel loops, and colon are normal in caliber. There are scattered colonic diverticula. There is mild focal thickening and pericolonic stranding the descending colon involving the colonic diverticulum consistent with acute diverticulitis. There is a appendicoliths at the base of the appendix. Appendix is normal in caliber without periappendiceal stranding. Peritoneum: No abnormal intraperitoneal fluid. No free air. Ventral Wall: No hernias. Abdominal Nodes: No retroperitoneal or mesenteric adenopathy by size criteria. Vessels: Aorta and inferior vena cava are normal in size. [id number] atherosclerotic calcifications. PELVIS: Pelvic Organs: Unremarkable. Bladder: Unremarkable. Pelvic Nodes: No enlarged lymph nodes. Miscellaneous: Small fat containing right inguinal hernia is seen. Bones: Moderate to severe degenerative changes in lumbar spine. IMPRESSION: 1. Acute diverticulitis of the descending colon. 2. Mild right basilar infiltrate or atelectasis. 3. Hepatic steatosis. 4. Small hiatal hernia. Dictated by: Dequan Castrejon M.D. on 10/26/2020 at 12:27 Approved by: Dequan Castrejon M.D. on 10/26/2020 at 12:34
[2020-10-26 11:35] VITALS: BP 153/85; PULSE 85; RESP 16; O2SAT 97
[2020-10-26] MEDS: SODIUM CHLORIDE 0.9% 1,000 ML 1000 ML IV (11:37)
[2020-10-26 12:30] VITALS: BP 142/79; PULSE 79; RESP 15; O2SAT 96
[2020-10-26 13:10] VITALS: BP 136/79; PULSE 79; RESP 16; O2SAT 98
== END 2020-10-26 13:31 | disposition home or self-care (01) ==
PROVIDERS: Emergency Provider Emergency Medicine; PCP Family Medicine
DX: K57.92 Diverticulitis of intestine, part unspecified, without perforation or abscess without bleeding (principal); R10.9 Unspecified abdominal pain
CPT/HCPCS: 36415; 74177; 80053; 81003; 83690; 85025; 93005; 93010; 96360; 99284; Q9967

== ENCOUNTER → 2020-11-01 11:51 | Outpatient (CLI) | payer MEDICARE, SELFPAY ==
[2020-11-01 13:26] LABS: Hemoglobin A1C% w Est Avg Glu 5.9 % (4.0-6.0)
== END ==
PROVIDERS: PCP Family Medicine; Referring Provider Family Medicine; Visit Provider Family Medicine
DX: R73.09 Other abnormal glucose (principal)
CPT/HCPCS: 36415; 83036

== ENCOUNTER 2020-11-11 10:21 | Emergency (ER) | payer MEDICARE, OTHER, SELFPAY ==
[2020-11-11 10:24] VITALS: BP 188/103; PULSE 64; RESP 18; TEMP 36.3; O2SAT 97; BMI 28.5
[2020-11-11 11:37] VITALS: BP 159/90; PULSE 52; O2SAT 99
[2020-11-11 11:40] VITALS: RESP 12
--- NOTE | 2020-11-11 11:55 | ED_ITS ---
HPI - General Adult General Chief complaint: Urogenital-Male Stated complaint: Thinks kidney related issues-pain Time Seen by Provider: 11/11/20 10:55 Source: patient Mode of arrival: Ambulatory Limitations: no limitations History of Present Illness HPI narrative: Patient is a 65-year-old male. Was recently diagnosed with diverticulitis and is completing a course of Augmentin for this. He states that earlier today he started noticing pain in the right flank/lower back. Was a fairly sudden onset. At the time of my evaluation he feels like his symptoms have improved somewhat. Does not hurt with touching the area. No rashes. No fevers. No urinary symptoms. No change in bowel habits. He states that the pain does not occur when he bends forward but when he stands up from bending forward he can reproduce the pain. Related Data Home Medications Medication Instructions Recorded Confirmed amoxicillin 875 mg-potassium 1 tab PO BID 11/11/20 11/11/20 clavulanate 125 mg tablet lisinopril 20 mg tablet 20 mg PO QAM 11/11/20 11/11/20 Previous Rx's Medication Instructions Recorded amlodipine 2.5 mg tablet 5 mg PO DAILY #180 tab 09/13/20 indomethacin 50 mg capsule 50 mg PO TID PRN #60 cap 09/13/20 Allergies Allergy/AdvReac Type Severity Reaction Status Date / Time No Known Drug Allergies Allergy Verified 11/11/20 10:29 Review of Systems Constitutional Constitutional: Denies fever(s) and Denies headache(s) Eyes Eyes: Reports system reviewed and no additional complaints, except as documented ENT Ears, Nose, Mouth, and Throat: Denies headache(s) Cardiovascular Cardiovascular: Denies chest pain and Denies dyspnea Respiratory Respiratory: Denies dyspnea Gastrointestinal Gastrointestinal: Denies abdominal pain, Denies nausea and Denies vomiting Genitourinary Genitourinary: Reports system reviewed and no additional complaints, except as documented Musculoskeletal Musculoskeletal: Reports back pain Integumentary/Breasts Skin/Breast: Reports system reviewed and no additional complaints, except as documented Neurologic Neurologic: Denies headache(s) Hematologic/Lymphatic On Anticoagulants: No Allergic/Immunologic Allergic/Immunologic: Reports system reviewed and no additional complaints, except as documented Patient History Medical History ADHD Essential hypertension (03/29/16) Hyponatremia (04/05/16) Pre-diabetes Thoracic aortic aneurysm without rupture (04/05/16) Surgical History Status post cholecystectomy (08/19/14) Status post hernia repair Social History education level: other occupational status: other 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 Gym: Cardio/muscle. Smoking Status: Former smoker alcohol intake frequency: a few times a month Substance Use Type: does not use Exam Initial Vital Signs Initial Vital Signs: Vital Signs Temperature 97.4 F L 11/11/20 10:24 Pulse Rate 64 11/11/20 10:24 Respiratory Rate 18 11/11/20 10:24 Blood Pressure 188/103 H 11/11/20 10:24 Pulse Oximetry 97 11/11/20 10:24 Const General: cooperative, healthy appearing and comfortable HENMT Head: normal to inspection and normocephalic Resp Effort & Inspection: normal respiratory effort Auscultation: clear to auscultation bilaterally Cardio Rate: regular rate Rhythm: regular rhythm GI Inspection: normal to inspection Palpation: soft Back/Spine/Pelvis Back: No CVA tenderness Skin General: no rashes or lesions noted Neuro General: patient alert, patient awake, patient oriented x3 and moves all extremities Extrem General: capillary refill normal Psych Appearance: grossly normal and well kempt Scores GCS [place] coma scale eye opening: Spontaneous Alex coma scale verbal response: Orientated Alex coma scale motor response: Obey commands [place] coma scale total score: 15 Course Vital Signs Vital signs: Vital Signs - 8 hr 11/11/20 10:24 11/11/20 11:37 11/11/20 11:40 Temperature 97.4 F L Pulse Rate 64 52 L Respiratory Rate 18 12 Blood Pressure 188/103 H 159/90 H Pulse Oximetry 97 99 Medical Decision Making Lab Data Labs: Urine Dip Bedside Urine Glucose Negative Bedside Urine Bilirubin - Negative Bedside Urine Ketone +/- 5 Urine Specific [place] 1.020 Bedside Urine Occult Blood - Negative Bedside Urine pH 6.0 Bedside Urine Protein - Negative Bedside Urine Urobilinogen - Negative Bedside Urine Nitrite - Negative Bedside Urine Leukocytes - Negative Esterase Point of care testing: Urine Dip Bedside Urine Glucose Negative Bedside Urine Bilirubin - Negative Bedside Urine Ketone +/- 5 Urine Specific [place] 1.020 Bedside Urine Occult Blood - Negative Bedside Urine pH 6.0 Bedside Urine Protein - Negative Bedside Urine Urobilinogen - Negative Bedside Urine Nitrite - Negative Bedside Urine Leukocytes - Negative Esterase MDM Narrative Medical decision making narrative: Urinalysis does not show any signs of infection. Has no blood in his urine. Low suspicion for pyelonephritis. Low suspicion for worsening symptoms related to his diverticulitis. He has no rash over the area concerning for zoster. His symptoms have improved since the onset and given the fact that it is positional when he stands up I suspect this is musculoskeletal on etiology. I discussed this with him. We discussed return precautions and follow-up instructions. Patient could be safely discharged home without further workup. He expressed understanding and agreement. Discharge Plan Departure Patient Disposition: Home Clinical Impression: Mid-back pain, acute Instructions: DI for Low Back Pain Activity Restrictions/Additional Instructions: You have no restrictions on any of your activities. I do suspect this is a musculoskeletal etiology. Contact your primary doctor for a follow-up. Return to the emergency department for any new or worsening symptoms Prescriptions: No Action amlodipine 2.5 mg tablet 5 mg PO DAILY Qty: 180 RF: 2 indomethacin 50 mg capsule 50 mg PO TID PRN (Reason: gout flareups) Qty: 60 RF: 1 amoxicillin-pot clavulanate 875-125 mg tablet 1 tab PO BID RF: 0 lisinopril 20 mg tablet 20 mg PO QAM RF: 0 Referrals: Viola Garcia MD [Primary Care Provider] -
== END 2020-11-11 12:01 | disposition home or self-care (01) ==
PROVIDERS: Emergency Provider Emergency Medicine; PCP Family Medicine
DX: M54.9 Dorsalgia, unspecified (principal)
CPT/HCPCS: 81003; 99282

== ENCOUNTER → 2021-01-07 10:13 | Outpatient (CLI) | payer MEDICARE, OTHER, SELFPAY ==
[2021-01-07] MEDS: COVID-19 VACC #3, MRNA(MOD) 50 MCG/0.25 ML VIAL IM (10:22)
== END ==
PROVIDERS: PCP Family Medicine; Visit Provider Internal Medicine
DX: Z23 Encounter for immunization (principal)
CPT/HCPCS: 0013A; 91301

== ENCOUNTER → 2021-02-18 08:38 | Outpatient (CLI) | payer MEDICARE, OTHER, SELFPAY | PROVIDERS: PCP Family Medicine; Visit Provider Physician Assistant | DX: R30.0 Dysuria (principal) | CPT/HCPCS: 87086 ==

== ENCOUNTER → 2021-12-08 09:10 | Outpatient (CLI) | payer MEDICARE, OTHER, SELFPAY ==
[2021-12-08 10:34] LABS: Creatinine Urine Random 110.3 mg/dL
[2021-12-08 10:38] LABS: Microalbumi Creatinin Ratio Ur 25.3 ug/mg CR (<30); Microalbumin Urine Random 2.8 mg/dL (0-1.6)
[2021-12-08 10:50] LABS: Hemoglobin A1C% w Est Avg Glu 6.1 % (4.0-6.0)
[2021-12-08 10:54] LABS: Alanine Aminotransferase 52 IU/L (<50); Albumin 4.5 g/dL (3.5-5.0); Albumin Globulin Ratio 1.4 (1.0-2.8); Alkaline Phosphatase 57 U/L (38-126); Aspartate Aminotransferase 36 IU/L (17-59); BUN Creatinine Ratio 19.5 (6-22); Bilirubin Total 0.4 mg/dL (0.2-1.3); Blood Urea Nitrogen 15 mg/dL (9-20); Calcium 9.8 mg/dL (8.4-10.2); Carbon Dioxide 25 mmol/L (22-32); Chloride 103 mmol/L (98-107); Cholesterol 214 mg/dL (140-199); Estimated Glomerular Filt Rate > 60 mL/min (>60); Globulin 3.2 g/dL (1.7-4.1); Glucose 126 mg/dL (80-110); HDL Cholesterol 52 mg/dL (40-60); HEMOLYSIS < 15 (0-50); LDL Cholesterol Calculated 133 mg/dL (<100); Potassium 4.8 mmol/L (3.4-5.1); Sodium 139 mmol/L (137-145); Total Protein 7.7 g/dL (6.3-8.2); Triglycerides 143 mg/dL (35-150)
== END ==
PROVIDERS: PCP Family Medicine; Referring Provider Family Medicine; Visit Provider Family Medicine
DX: R73.03 Prediabetes (principal); I10 Essential (primary) hypertension
CPT/HCPCS: 36415; 80053; 80061; 82043; 82570; 83036

== ENCOUNTER 2022-08-07 13:36 | Inpatient (IN) | payer MEDICARE, OTHER, SELFPAY ==
[2022-08-07] VITALS (19 sets, daily range): BP systolic 136–174; BP diastolic 63–78; PULSE 94–123; RESP 16–40; TEMP 36.6–37.9; O2SAT 94–100; BMI 31.8; BMI 31.0
--- NOTE | 2022-08-07 13:59 | DI.RAD.S_ITS ---
PROCEDURE: XR CHEST 1V INDICATIONS: Shortness of breath TECHNIQUE: One view of the chest was acquired. COMPARISON: [facility], CR, XR CHEST 1V, 11/06/2019, 14:43. FINDINGS: Surgical changes and devices: None. Lungs and pleura: Lungs are clear. No pleural effusions or pneumothorax. Mediastinum: Mediastinal contours appear normal. Heart size is normal. Bones and chest wall: No suspicious bony lesions. Overlying soft tissues appear unremarkable. IMPRESSION: No evidence acute pulmonary process. Dictated by: Dimitrios Bryant M.D. on 08/07/2022 at 14:33 Approved by: Dimitrios Bryant M.D. on 08/07/2022 at 14:33
[2022-08-07 14:29] LABS: Add Manual Diff / Slide Review NO; Basophils Absolute Auto 100 /uL (0-100); Basophils Percent Auto 0.9 % (0-2); Eosinophils Absolute Auto 0 /uL (0-450); Eosinophils Percent Auto 0.5 % (2-4); Hematocrit 34.4 % (41-53); Hemoglobin 12.1 g/dL (13.5-17.5); Lymphocytes Absolute Auto 700 /uL (1100-4500); Lymphocytes Percent Auto 10.1 % (25-40); Mean Corpuscular HGB Conc 35.1 % (30-36); Mean Corpuscular Hemoglobin 30.5 PG (26-34); Monocytes Absolute Auto 200 /uL (0-900); Monocytes Percent Auto 3.4 % (3-14); Neutrophils Absolute Auto 5900 /uL (1500-7000); Neutrophils Percent Auto 85.1 % (50-75); Platelet Count 154 X10^3/uL (150-400); Red Blood Cell Count 3.96 X10^6/uL (4.5-5.9); Red Cell Distribution Width 14.2 % (11.6-14.8); White Blood Cell Count 6.9 X10^3/uL (4.5-11.0)
[2022-08-07 14:37] LABS: INR 1.2 (0.9-1.3)
[2022-08-07 14:46] LABS: Lactate (Lactic Acid) 1.9 mmol/L (0.7-2.1)
[2022-08-07 14:52] LABS: C-Reactive Protein Quant 4.9 mg/dL (<1.0); Creatine Kinase 150 U/L (55-170)
--- NOTE | 2022-08-07 14:53 | ED_ITS ---
HPI - Weakness <Shun Thompson MD - Last Filed: 08/12/22 13:04> General Chief complaint: Shortness of Breath/Dyspnea Stated complaint: SOB/exp to covid increasing worse Time Seen by Provider: 08/07/22 14:14 Source: patient Mode of arrival: Ambulatory History of Present Illness HPI Narrative: Patient here with . Complains of multiple symptoms/complaints. Patient recovered from COVID infection 5 weeks ago. About a week later he had low back pain and then upper neck pain. Those resolved. Recently he developed right wrist pain which he has a Velcro wrist splint placed. He is also had left foot pain which he states has history of gout but does not feel the same. Today had blurry vision with green tint in his vision which has resolved. He is had dizziness. Decreased appetite. Has had dark urine as well. He states he has no energy. Vital signs noted. Tachycardia is persistent which they state he usually has a low heart rate. Denies any chest pain. Related Data Home Medications Medication Instructions Recorded Confirmed ibuprofen 200 mg tablet 400 mg PO Q6H PRN Pain (Scale 08/07/22 08/07/22 Score 4-6) Previous Rx's Medication Instructions Recorded amlodipine 2.5 mg tablet See Rx Instructions .Route 08/04/22 .COMPLEX #180 tabs lisinopril 20 mg tablet See Rx Instructions .Route 08/04/22 .COMPLEX #90 tabs sulfamethoxazole 800 1 tab PO BID 10 days #20 tabs 08/10/22 mg-trimethoprim 160 mg tablet (Bactrim DS) Allergies Allergy/AdvReac Type Severity Reaction Status Date / Time No Known Drug Allergies Allergy Verified 08/10/22 08:12 Review of Systems <Shun Thompson MD - Last Filed: 08/12/22 13:04> Review of Systems Narrative: GENERAL: negative chills, positive fatigue, malaise, negative fever, sweats. HEENT: negative sinus pain, ear pain, sore throat, positive blurry vision RESPIRATORY: Positive dyspnea, negative cough CARDIOVASCULAR: negative chest pain, palpitations GASTROINTESTINAL: Positive nausea, negative vomiting, abdominal pain : negative dysuria, frequency, hematuria, positive dark urine MUSCULOSKELETAL: negative muscle or bony pain SKIN: negative rash, skin lesions NEUROLOGIC: negative weakness, numbness ROS Unobtainable: All systems reviewed & are unremarkable except as noted in HPI and below Patient History <Shun Thompson MD - Last Filed: 08/12/22 13:04> Medical History ADHD Essential hypertension (03/29/16) Hyponatremia (04/05/16) Pre-diabetes Thoracic aortic aneurysm without rupture (04/05/16) Surgical History Status post cholecystectomy (08/19/14) Status post hernia repair Social History household members: spouse education level: other occupational status: other 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 Gym: Cardio/muscle. Smoking Status: Former smoker alcohol intake frequency: a few times a month Substance Use Type: does not use Exam <Shun Thompson MD - Last Filed: 08/12/22 13:04> Narrative Exam Narrative: GENERAL: in no distress, not toxic not dyspneic HEAD: Normocephalic. EYES: Pupils equal round ENT: Mucous membranes moist. NECK: Trachea midline. Full active range of motion, no meningeal signs or neck pain CARDIOVASCULAR: Tachycardia with Regular rate and rhythm without murmurs RESPIRATORY: Clear to auscultation. Breath sounds equal bilaterally. No wheezes, rales, or rhonchi. Speaking full sentences, no respiratory distress. Full and equal bilateral lung sounds. GASTROINTESTINAL: Abdomen soft, non-tender EXTREMITIES: No gross deformities. BACK: No flank tenderness. NEURO: AOx4. SKIN: Warm and dry PSYCH: Not anxious, is cooperative Initial Vital Signs Initial Vital Signs: Vital Signs Pulse Rate 100 H 08/07/22 13:56 Pulse Oximetry 97 08/07/22 13:56 <Deepti Bauer DO - Last Filed: 08/10/22 07:00> Initial Vital Signs Initial Vital Signs: Vital Signs Pulse Rate 100 H 08/07/22 13:56 Pulse Oximetry 97 08/07/22 13:56 Course <Shun Thompson MD - Last Filed: 08/12/22 13:04> Orders Ordered: Discontinued Medications Acetaminophen (Acetaminophen 325 Mg Tablet) 650 mg PO Q6H STACEY Last Admin: 08/09/22 15:00 Dose: Not Given Documented By: Admin: 08/09/22 09:30 Dose: Not Given Documented By: Admin: 08/09/22 04:00 Dose: 650 mg Documented By: Admin: 08/08/22 22:14 Dose: 650 mg Documented By: Admin: 08/08/22 15:56 Dose: 650 mg Documented By: Admin: 08/08/22 09:39 Dose: 650 mg Documented By: Admin: 08/08/22 03:47 Dose: 650 mg Documented By: Admin: 08/07/22 20:57 Dose: 650 mg Documented By: CHAIM Al Hydrox/Mg Hydrox/Simethicone (Mag Hydrox/Alum/Simeth 30 Ml Udc) 30 ml PO Q6HR PRN PRN Reason: Dyspepsia Sodium Chloride (Normal Saline 0.9%) 1,000 mls @ 1,000 mls/hr IV BOLUS ONE Stop: 08/07/22 15:10 Last Infusion: 08/07/22 17:04 Dose: 0 mls/hr Documented By: Admin: 08/07/22 15:18 Dose: 1,000 mls/hr Documented By: JEANNIE Sodium Chloride (Normal Saline 0.45%) 1,000 mls @ 100 mls/hr IV CONT STACEY Last Admin: 08/08/22 07:34 Dose: 100 mls/hr Documented By: Infusion: 08/08/22 06:56 Dose: 100 mls/hr Documented By: Admin: 08/07/22 20:56 Dose: 100 mls/hr Documented By: CHAIM Sodium Chloride (Normal Saline 0.9%) 1,000 mls @ 125 mls/hr IV CONT STACEY Last Admin: 08/09/22 08:18 Dose: 100 mls/hr Documented By: Infusion: 08/09/22 08:18 Dose: 100 mls/hr Documented By: Admin: 08/09/22 00:11 Dose: 100 mls/hr Documented By: Infusion: 08/09/22 00:11 Dose: 100 mls/hr Documented By: Admin: 08/08/22 15:52 Dose: 100 mls/hr Documented By: NORMA Magnesium Hydroxide (Magnesium Hydroxide 30 Ml Udc) 30 ml PO DAILY PRN PRN Reason: Constipation Naloxone HCl (Naloxone 0.4 Mg/Ml Vial) 0.2 mg IV Q2MIN PRN PRN Reason: Opiate Reversal Ondansetron HCl (Ondansetron 4 Mg/2 Ml Inj) 4 mg IV Q8HR PRN PRN Reason: Nausea And Vomiting Vital Signs Vital signs: Vital Signs - 8 hr 08/07/22 14:00 08/07/22 13:56 08/07/22 13:57 Temperature 97.8 F Pulse Rate 110 H 100 H Pulse Rate [Orthostatic Lying] Pulse Rate [Orthostatic Sitting] Pulse Rate [Orthostatic Standing] Respiratory Rate 24 Blood Pressure 168/78 H 163/72 H Blood Pressure [Orthostatic Lying] Blood Pressure [Orthostatic Sitting] Blood Pressure [Orthostatic Standing] Pulse Oximetry 97 97 Oxygen Delivery Method Room Air 08/07/22 13:57 08/07/22 14:00 08/07/22 14:00 Temperature Pulse Rate 98 H 100 H Pulse Rate [Orthostatic Lying] Pulse Rate [Orthostatic Sitting] Pulse Rate [Orthostatic Standing] Respiratory Rate 23 Blood Pressure 160/71 H Blood Pressure [Orthostatic Lying] Blood Pressure [Orthostatic Sitting] Blood Pressure [Orthostatic Standing] Pulse Oximetry 96 Oxygen Delivery Method 08/07/22 14:30 08/07/22 14:30 08/07/22 15:11 Temperature Pulse Rate 102 H Pulse Rate [Orthostatic Lying] 103 H Pulse Rate [Orthostatic Sitting] 111 H Pulse Rate [Orthostatic Standing] 123 H Respiratory Rate 23 Blood Pressure 150/69 H Blood Pressure [Orthostatic Lying] 160/73 H Blood Pressure [Orthostatic Sitting] 159/74 H Blood Pressure [Orthostatic Standing] 160/77 H Pulse Oximetry 99 Oxygen Delivery Method Room Air 08/07/22 15:00 08/07/22 15:06 08/07/22 15:06 Temperature Pulse Rate 101 H 103 H Pulse Rate [Orthostatic Lying] Pulse Rate [Orthostatic Sitting] Pulse Rate [Orthostatic Standing] Respiratory Rate 23 32 H Blood Pressure 160/73 H Blood Pressure [Orthostatic Lying] Blood Pressure [Orthostatic Sitting] Blood Pressure [Orthostatic Standing] Pulse Oximetry Oxygen Delivery Method 08/07/22 15:07 08/07/22 15:07 08/07/22 15:09 Temperature Pulse Rate 111 H 121 H Pulse Rate [Orthostatic Lying] Pulse Rate [Orthostatic Sitting] Pulse Rate [Orthostatic Standing] Respiratory Rate 23 40 H Blood Pressure 159/74 H Blood Pressure [Orthostatic Lying] Blood Pressure [Orthostatic Sitting] Blood Pressure [Orthostatic Standing] Pulse Oximetry Oxygen Delivery Method 08/07/22 15:09 08/07/22 15:30 08/07/22 15:30 Temperature Pulse Rate 110 H Pulse Rate [Orthostatic Lying] Pulse Rate [Orthostatic Sitting] Pulse Rate [Orthostatic Standing] Respiratory Rate Blood Pressure 160/77 H 165/72 H Blood Pressure [Orthostatic Lying] Blood Pressure [Orthostatic Sitting] Blood Pressure [Orthostatic Standing] Pulse Oximetry Oxygen Delivery Method 08/07/22 16:03 08/07/22 16:04 08/07/22 16:04 Temperature Pulse Rate 103 H 102 H Pulse Rate [Orthostatic Lying] Pulse Rate [Orthostatic Sitting] Pulse Rate [Orthostatic Standing] Respiratory Rate 23 26 H Blood Pressure 174/77 H Blood Pressure [Orthostatic Lying] Blood Pressure [Orthostatic Sitting] Blood Pressure [Orthostatic Standing] Pulse Oximetry 100 98 Oxygen Delivery Method 08/07/22 16:30 08/07/22 16:30 08/07/22 17:00 Temperature Pulse Rate 104 H Pulse Rate [Orthostatic Lying] Pulse Rate [Orthostatic Sitting] Pulse Rate [Orthostatic Standing] Respiratory Rate Blood Pressure 161/71 H 153/71 H Blood Pressure [Orthostatic Lying] Blood Pressure [Orthostatic Sitting] Blood Pressure [Orthostatic Standing] Pulse Oximetry 95 Oxygen Delivery Method 08/07/22 17:00 Temperature Pulse Rate 95 H Pulse Rate [Orthostatic Lying] Pulse Rate [Orthostatic Sitting] Pulse Rate [Orthostatic Standing] Respiratory Rate 25 H Blood Pressure Blood Pressure [Orthostatic Lying] Blood Pressure [Orthostatic Sitting] Blood Pressure [Orthostatic Standing] Pulse Oximetry 97 Oxygen Delivery Method <Deepti Bauer, - Last Filed: 08/10/22 07:00> Orders Ordered: Discontinued Medications Acetaminophen (Acetaminophen 325 Mg Tablet) 650 mg PO Q6H STACEY Last Admin: 08/09/22 15:00 Dose: Not Given Documented By: Admin: 08/09/22 09:30 Dose: Not Given Documented By: Admin: 08/09/22 04:00 Dose: 650 mg Documented By: Admin: 08/08/22 22:14 Dose: 650 mg Documented By: Admin: 08/08/22 15:56 Dose: 650 mg Documented By: Admin: 08/08/22 09:39 Dose: 650 mg Documented By: Admin: 08/08/22 03:47 Dose: 650 mg Documented By: Admin: 08/07/22 20:57 Dose: 650 mg Documented By: CHAIM Al Hydrox/Mg Hydrox/Simethicone (Mag Hydrox/Alum/Simeth 30 Ml Udc) 30 ml PO Q6HR PRN PRN Reason: Dyspepsia Sodium Chloride (Normal Saline 0.9%) 1,000 mls @ 1,000 mls/hr IV BOLUS ONE Stop: 08/07/22 15:10 Last Infusion: 08/07/22 17:04 Dose: 0 mls/hr Documented By: Admin: 08/07/22 15:18 Dose: 1,000 mls/hr Documented By: JEANNIE Sodium Chloride (Normal Saline 0.45%) 1,000 mls @ 100 mls/hr IV CONT STACEY Last Admin: 08/08/22 07:34 Dose: 100 mls/hr Documented By: Infusion: 08/08/22 06:56 Dose: 100 mls/hr Documented By: Admin: 08/07/22 20:56 Dose: 100 mls/hr Documented By: CHAIM Sodium Chloride (Normal Saline 0.9%) 1,000 mls @ 125 mls/hr IV CONT STACEY Last Admin: 08/09/22 08:18 Dose: 100 mls/hr Documented By: Infusion: 08/09/22 08:18 Dose: 100 mls/hr Documented By: Admin: 08/09/22 00:11 Dose: 100 mls/hr Documented By: Infusion: 08/09/22 00:11 Dose: 100 mls/hr Documented By: Admin: 08/08/22 15:52 Dose: 100 mls/hr Documented By: NORMA Magnesium Hydroxide (Magnesium Hydroxide 30 Ml Udc) 30 ml PO DAILY PRN PRN Reason: Constipation Naloxone HCl (Naloxone 0.4 Mg/Ml Vial) 0.2 mg IV Q2MIN PRN PRN Reason: Opiate Reversal Ondansetron HCl (Ondansetron 4 Mg/2 Ml Inj) 4 mg IV Q8HR PRN PRN Reason: Nausea And Vomiting Vital Signs Vital signs: Vital Signs - 8 hr 08/07/22 14:00 08/07/22 13:56 08/07/22 13:57 Temperature 97.8 F Pulse Rate 110 H 100 H Pulse Rate [Orthostatic Lying] Pulse Rate [Orthostatic Sitting] Pulse Rate [Orthostatic Standing] Respiratory Rate 24 Blood Pressure 168/78 H 163/72 H Blood Pressure [Orthostatic Lying] Blood Pressure [Orthostatic Sitting] Blood Pressure [Orthostatic Standing] Pulse Oximetry 97 97 Oxygen Delivery Method Room Air 08/07/22 13:57 08/07/22 14:00 08/07/22 14:00 Temperature Pulse Rate 98 H 100 H Pulse Rate [Orthostatic Lying] Pulse Rate [Orthostatic Sitting] Pulse Rate [Orthostatic Standing] Respiratory Rate 23 Blood Pressure 160/71 H Blood Pressure [Orthostatic Lying] Blood Pressure [Orthostatic Sitting] Blood Pressure [Orthostatic Standing] Pulse Oximetry 96 Oxygen Delivery Method 08/07/22 14:30 08/07/22 14:30 08/07/22 15:11 Temperature Pulse Rate 102 H Pulse Rate [Orthostatic Lying] 103 H Pulse Rate [Orthostatic Sitting] 111 H Pulse Rate [Orthostatic Standing] 123 H Respiratory Rate 23 Blood Pressure 150/69 H Blood Pressure [Orthostatic Lying] 160/73 H Blood Pressure [Orthostatic Sitting] 159/74 H Blood Pressure [Orthostatic Standing] 160/77 H Pulse Oximetry 99 Oxygen Delivery Method Room Air 08/07/22 15:00 08/07/22 15:06 08/07/22 15:06 Temperature Pulse Rate 101 H 103 H Pulse Rate [Orthostatic Lying] Pulse Rate [Orthostatic Sitting] Pulse Rate [Orthostatic Standing] Respiratory Rate 23 32 H Blood Pressure 160/73 H Blood Pressure [Orthostatic Lying] Blood Pressure [Orthostatic Sitting] Blood Pressure [Orthostatic Standing] Pulse Oximetry Oxygen Delivery Method 08/07/22 15:07 08/07/22 15:07 08/07/22 15:09 Temperature Pulse Rate 111 H 121 H Pulse Rate [Orthostatic Lying] Pulse Rate [Orthostatic Sitting] Pulse Rate [Orthostatic Standing] Respiratory Rate 23 40 H Blood Pressure 159/74 H Blood Pressure [Orthostatic Lying] Blood Pressure [Orthostatic Sitting] Blood Pressure [Orthostatic Standing] Pulse Oximetry Oxygen Delivery Method 08/07/22 15:09 08/07/22 15:30 08/07/22 15:30 Temperature Pulse Rate 110 H Pulse Rate [Orthostatic Lying] Pulse Rate [Orthostatic Sitting] Pulse Rate [Orthostatic Standing] Respiratory Rate Blood Pressure 160/77 H 165/72 H Blood Pressure [Orthostatic Lying] Blood Pressure [Orthostatic Sitting] Blood Pressure [Orthostatic Standing] Pulse Oximetry Oxygen Delivery Method 08/07/22 16:03 08/07/22 16:04 08/07/22 16:04 Temperature Pulse Rate 103 H 102 H Pulse Rate [Orthostatic Lying] Pulse Rate [Orthostatic Sitting] Pulse Rate [Orthostatic Standing] Respiratory Rate 23 26 H Blood Pressure 174/77 H Blood Pressure [Orthostatic Lying] Blood Pressure [Orthostatic Sitting] Blood Pressure [Orthostatic Standing] Pulse Oximetry 100 98 Oxygen Delivery Method 08/07/22 16:30 08/07/22 16:30 08/07/22 17:00 Temperature Pulse Rate 104 H Pulse Rate [Orthostatic Lying] Pulse Rate [Orthostatic Sitting] Pulse Rate [Orthostatic Standing] Respiratory Rate Blood Pressure 161/71 H 153/71 H Blood Pressure [Orthostatic Lying] Blood Pressure [Orthostatic Sitting] Blood Pressure [Orthostatic Standing] Pulse Oximetry 95 Oxygen Delivery Method 08/07/22 17:00 Temperature Pulse Rate 95 H Pulse Rate [Orthostatic Lying] Pulse Rate [Orthostatic Sitting] Pulse Rate [Orthostatic Standing] Respiratory Rate 25 H Blood Pressure Blood Pressure [Orthostatic Lying] Blood Pressure [Orthostatic Sitting] Blood Pressure [Orthostatic Standing] Pulse Oximetry 97 Oxygen Delivery Method MDM - Weakness <Shun Thompson MD - Last Filed: 08/12/22 13:04> Lab Data 08/09/22 06:05 08/09/22 12:50 Labs: Lab Results 08/07/22 08/07/22 08/07/22 Range/Units 14:11 14:11 14:11 WBC 6.9 (4.5-11.0) X10^3/uL RBC 3.96 L (4.5-5.9) X10^6/uL Hgb 12.1 L (13.5-17.5) g/dL Hct 34.4 L (41-53) % MCV 87.0 (80-100) fL MCH 30.5 (26-34) PG MCHC 35.1 (30-36) % RDW 14.2 (11.6-14.8) % Plt Count 154 (150-400) X10^3/uL Neut % (Auto) 85.1 H (50-75) % Lymph % (Auto) 10.1 L (25-40) % [place] % (Auto) 3.4 (3-14) % Eos % (Auto) 0.5 L (2-4) % Baso % (Auto) 0.9 (0-2) % Neut # (Auto) 5900 (6116-9023) /uL Lymph # (Auto) 700 L (7581-7557) /uL [place] # (Auto) 200 (0-900) /uL Eos # (Auto) 0 (0-450) /uL Baso # (Auto) 100 (0-100) /uL ESR (0-15) MM/HR PT 14.0 H (10.1-12.7) SECONDS INR 1.2 (0.9-1.3) D-Dimer (<500) ng/ml Sodium 121 L (137-145) mmol/L Potassium 4.5 (3.4-5.1) mmol/L Chloride 93 L (98-107) mmol/L Carbon Dioxide 15 L (22-32) mmol/L BUN 18 (9-20) mg/dL Creatinine 0.89 (0.66-1.25) mg/dL Estimated GFR > 60 (>60) mL/min BUN/Creatinine Ratio 20.2 (6-22) Glucose 146 H (80-110) mg/dL Lactate (0.7-2.1) mmol/L Calcium 9.2 (8.4-10.2) mg/dL Total Bilirubin 1.0 (0.2-1.3) mg/dL AST 122 H (17-59) IU/L ALT 156 H (<50) IU/L Alkaline Phosphatase 63 (38-126) U/L Total Creatine Kinase (55-170) U/L CK-MB (CK-2) CK-MB (CK-2) Rel Index Troponin I < 0.012 (0.01-0.034) ng/mL C-Reactive Protein (<1.0) mg/dL NT-Pro-B Natriuret Pep 351 H (<125) pg/mL Total Protein 7.9 (6.3-8.2) g/dL Albumin 4.0 (3.5-5.0) g/dL Globulin 3.9 (1.7-4.1) g/dL Albumin/Globulin Ratio 1.0 (1.0-2.8) Urine RBC (0-5/HPF) Urine WBC (0-5/HPF) Ur Squamous Epith Cells (0-5/HPF) Ur Transition Epith Cell (0-5/HPF) Ur Renal Epithelial Cell (0-1/HPF) Urine Bacteria (None) Ur Culture Indicated? Chlamy pneumoniae PCR (Not Detect) Adenovirus (PCR) (Not Detect) B. pertussis DNA (PCR) (Not Detecte) B.parapertussis DNA PCR (Not Detecte) Coronavirus OC43 (PCR) (Not Detect) Coronavirus HKU1 (PCR) (Not Detect) Coronavirus 229E (PCR) (Not Detect) SARS-CoV-2 (PCR) (Not Detecte) Coronavirus NL63 (PCR) (Not Detect) Human Metapneumovir PCR (Not Detect) Influenza Type A (PCR) (Not Detect) Influenza Type B (PCR) (Not Detect) M. pneumoniae (PCR) (Not Detect) Parainfluenza 1 (PCR) (Not Detect) Parainfluenza 2 (PCR) (Not Detect) Parainfluenza 3 (PCR) (Not Detect) Parainfluenza 4 (PCR) (Not Detect) RSV (PCR) (Not Detect) Entero/Rhino (PCR) (Not Detect) 08/07/22 08/07/22 08/07/22 Range/Units 14:11 14:11 14:11 WBC (4.5-11.0) X10^3/uL RBC (4.5-5.9) X10^6/uL Hgb (13.5-17.5) g/dL Hct (41-53) % MCV (80-100) fL MCH (26-34) PG MCHC (30-36) % RDW (11.6-14.8) % Plt Count (150-400) X10^3/uL Neut % (Auto) (50-75) % Lymph % (Auto) (25-40) % [place] % (Auto) (3-14) % Eos % (Auto) (2-4) % Baso % (Auto) (0-2) % Neut # (Auto) (6744-0959) /uL Lymph # (Auto) (2223-9379) /uL [place] # (Auto) (0-900) /uL Eos # (Auto) (0-450) /uL Baso # (Auto) (0-100) /uL ESR 32 H (0-15) MM/HR PT (10.1-12.7) SECONDS INR (0.9-1.3) D-Dimer (<500) ng/ml Sodium (137-145) mmol/L Potassium (3.4-5.1) mmol/L Chloride (98-107) mmol/L Carbon Dioxide (22-32) mmol/L BUN (9-20) mg/dL Creatinine (0.66-1.25) mg/dL Estimated GFR (>60) mL/min BUN/Creatinine Ratio (6-22) Glucose (80-110) mg/dL Lactate 1.9 (0.7-2.1) mmol/L Calcium (8.4-10.2) mg/dL Total Bilirubin (0.2-1.3) mg/dL AST (17-59) IU/L ALT (<50) IU/L Alkaline Phosphatase (38-126) U/L Total Creatine Kinase 150 (55-170) U/L CK-MB (CK-2) TNP CK-MB (CK-2) Rel Index TNP Troponin I (0.01-0.034) ng/mL C-Reactive Protein 4.9 H (<1.0) mg/dL NT-Pro-B Natriuret Pep (<125) pg/mL Total Protein (6.3-8.2) g/dL Albumin (3.5-5.0) g/dL Globulin (1.7-4.1) g/dL Albumin/Globulin Ratio (1.0-2.8) Urine RBC (0-5/HPF) Urine WBC (0-5/HPF) Ur Squamous Epith Cells (0-5/HPF) Ur Transition Epith Cell (0-5/HPF) Ur Renal Epithelial Cell (0-1/HPF) Urine Bacteria (None) Ur Culture Indicated? Chlamy pneumoniae PCR (Not Detect) Adenovirus (PCR) (Not Detect) B. pertussis DNA (PCR) (Not Detecte) B.parapertussis DNA PCR (Not Detecte) Coronavirus OC43 (PCR) (Not Detect) Coronavirus HKU1 (PCR) (Not Detect) Coronavirus 229E (PCR) (Not Detect) SARS-CoV-2 (PCR) (Not Detecte) Coronavirus NL63 (PCR) (Not Detect) Human Metapneumovir PCR (Not Detect) Influenza Type A (PCR) (Not Detect) Influenza Type B (PCR) (Not Detect) M. pneumoniae (PCR) (Not Detect) Parainfluenza 1 (PCR) (Not Detect) Parainfluenza 2 (PCR) (Not Detect) Parainfluenza 3 (PCR) (Not Detect) Parainfluenza 4 (PCR) (Not Detect) RSV (PCR) (Not Detect) Entero/Rhino (PCR) (Not Detect) 08/07/22 08/07/22 08/07/22 Range/Units 14:11 14:14 15:35 WBC (4.5-11.0) X10^3/uL RBC (4.5-5.9) X10^6/uL Hgb (13.5-17.5) g/dL Hct (41-53) % MCV (80-100) fL MCH (26-34) PG MCHC (30-36) % RDW (11.6-14.8) % Plt Count (150-400) X10^3/uL Neut % (Auto) (50-75) % Lymph % (Auto) (25-40) % [place] % (Auto) (3-14) % Eos % (Auto) (2-4) % Baso % (Auto) (0-2) % Neut # (Auto) (1073-2097) /uL Lymph # (Auto) (8437-2104) /uL [place] # (Auto) (0-900) /uL Eos # (Auto) (0-450) /uL Baso # (Auto) (0-100) /uL ESR (0-15) MM/HR PT (10.1-12.7) SECONDS INR (0.9-1.3) D-Dimer 61390 H (<500) ng/ml Sodium (137-145) mmol/L Potassium (3.4-5.1) mmol/L Chloride (98-107) mmol/L Carbon Dioxide (22-32) mmol/L BUN (9-20) mg/dL Creatinine (0.66-1.25) mg/dL Estimated GFR (>60) mL/min BUN/Creatinine Ratio (6-22) Glucose (80-110) mg/dL Lactate (0.7-2.1) mmol/L Calcium (8.4-10.2) mg/dL Total Bilirubin (0.2-1.3) mg/dL AST (17-59) IU/L ALT (<50) IU/L Alkaline Phosphatase (38-126) U/L Total Creatine Kinase (55-170) U/L CK-MB (CK-2) CK-MB (CK-2) Rel Index Troponin I (0.01-0.034) ng/mL C-Reactive Protein (<1.0) mg/dL NT-Pro-B Natriuret Pep (<125) pg/mL Total Protein (6.3-8.2) g/dL Albumin (3.5-5.0) g/dL Globulin (1.7-4.1) g/dL Albumin/Globulin Ratio (1.0-2.8) Urine RBC 0-1/hpf (0-5/HPF) Urine WBC 0-1/hpf (0-5/HPF) Ur Squamous Epith Cells 0-1 /hpf (0-5/HPF) Ur Transition Epith Cell 0-1/hpf (0-5/HPF) Ur Renal Epithelial Cell 0-1/hpf (0-1/HPF) Urine Bacteria None seen (None) Ur Culture Indicated? Cult not indicated Chlamy pneumoniae PCR Not detected (Not Detect) Adenovirus (PCR) Not detected (Not Detect) B. pertussis DNA (PCR) Not detected (Not Detecte) B.parapertussis DNA PCR Not detected (Not Detecte) Coronavirus OC43 (PCR) Not detected (Not Detect) Coronavirus HKU1 (PCR) Not detected (Not Detect) Coronavirus 229E (PCR) Not detected (Not Detect) SARS-CoV-2 (PCR) Not detected (Not Detecte) Coronavirus NL63 (PCR) Not detected (Not Detect) Human Metapneumovir PCR Not detected (Not Detect) Influenza Type A (PCR) Not detected (Not Detect) Influenza Type B (PCR) Not detected (Not Detect) M. pneumoniae (PCR) Not detected (Not Detect) Parainfluenza 1 (PCR) Not detected (Not Detect) Parainfluenza 2 (PCR) Not detected (Not Detect) Parainfluenza 3 (PCR) Not detected (Not Detect) Parainfluenza 4 (PCR) Not detected (Not Detect) RSV (PCR) Not detected (Not Detect) Entero/Rhino (PCR) Not detected (Not Detect) Urine Dip Bedside Urine Glucose Negative Bedside Urine Bilirubin - Negative Bedside Urine Ketone - Negative Urine Specific [place] 1.015 Bedside Urine Occult Blood +/- Bedside Urine pH 5.5 Bedside Urine Protein +/- 15 Bedside Urine Urobilinogen - Negative Bedside Urine Nitrite - Negative Bedside Urine Leukocytes - Negative Esterase Imaging Data Chest x-ray: Radiologist Impression: [address] [id number] XRay Report Signed Patient: Theo Kovacs MR#: [id number] : 1955 Acct:[id number] Age/Sex: 66 / M Date of Service: 08/07/22 Loc: Accession Number: [id number] ?? Procedure: XR chest 1V Ordering Provider: Shun Thompson MD PROCEDURE:? XR CHEST 1V ? INDICATIONS:? Shortness of breath ? TECHNIQUE:? One view of the chest was acquired.? ? COMPARISON:? [facility], CR, XR CHEST 1V, 11/06/2019, 14:43. ? FINDINGS:? ? Surgical changes and devices:? None.? ? Lungs and pleura:? Lungs are clear.? No pleural effusions or pneumothorax.? ? Mediastinum:? Mediastinal contours appear normal.? Heart size is normal.? ? Bones and chest wall:? No suspicious bony lesions.? Overlying soft tissues appear unremarkable.? ? IMPRESSION:? No evidence acute pulmonary process. ? ? ? Dictated by: Dimitrios Bryant M.D. on 08/07/2022 at 14:33 ? ? Approved by: Dimitrios Bryant M.D. on 08/07/2022 at 14:33 ? CT scan - chest: Radiologist Impression: [address] [id number] [address] Scan Report Signed Patient: Theo Kovacs MR#: [id number] : 1955 Acct:[id number] Age/Sex: 66 / M Date of Service: 08/07/22 Loc: ED Accession Number: [id number] ?? Procedure: CT angio chest PE protocol Ordering Provider: Shun Thompson MD PROCEDURE:? CT ANGIO CHEST PE PROTOCOL ? INDICATIONS:? Dyspnea ? TECHNIQUE:? After the administration of intravenous contrast, 2 mm thick sections acquired from the pulmonary apices to the posterior costophrenic angles.? 3-dimensional maximum intensity projection (MIP) coronal and sagittal reformats were then acquired through the thorax.? For radiation dose reduction, the following was used:? automated exposure control, adjustment of mA and/or kV according to patient size.? ? COMPARISON:? [facility], CT, CT ANGIO CHEST PE PROTOCOL, 11/06/2019, 15:29. ? FINDINGS:? Image quality:? Excellent.? ? Pulmonary arteries:? Pulmonary arteries are normal in size, and demonstrate no intraluminal filling defects to suggest central pulmonary embolism.? ? Lungs and pleura:? Lungs are clear.? No pleural effusions or pneumothorax.? Central and peripheral airways are patent.? ? Mediastinum:? Heart size is normal, without pericardial effusion.? Moderate coronary artery calcifications.? No mediastinal or hilar adenopathy.? Mild aneurysmal dilatation of the ascending aorta, which on image 91/4 measures 4.3 cm.? It is not significantly changed in size.? Esophagus is normal in caliber, without hiatal hernia.? ? Bones and chest wall:? No suspicious bony lesions.? Ribs and thoracic spine appear intact throughout.? Thyroid gland is unremarkable.? No axillary or supraclavicular adenopathy.? ? Abdomen:? Visualized upper abdominal solid organs appear normal in the early arterial phase of enhancement.? ? IMPRESSION:? ? 1. No evidence acute pulmonary emboli. ? 2. No evidence acute pulmonary process. ? 3. Moderate coronary artery calcifications. ? 4. Stable mild aneurysmal dilatation of the ascending aorta.? ? ? Dictated by: Dimitrios Bryant M.D. on 08/07/2022 at 16:50 ? ? Approved by: Dimitrios Bryant M.D. on 08/07/2022 at 17:18 ? CT angio abdomen and pelvis: Radiologist Impression: [address] [address] [address] Scan Report Signed Patient: Theo Kovacs MR#: [id number] : 1955 Acct:[id number] Age/Sex: 66 / M Date of Service: 08/07/22 Loc: ED Accession Number: [id number] ?? Procedure: CT angio abdomen pelvis Ordering Provider: Shun Thompson MD PROCEDURE:? CT ANGIO ABDOMEN PELVIS ? INDICATIONS:? Dyspnea ? TECHNIQUE:? After the administration of intravenous contrast, 2.5 mm sections acquired from the diaphragm to the iliac crests.? 10 mm maximum intensity projection (MIP) coronal and sagittal reformats were then performed.? For radiation dose reduction, the following was used:? automated exposure control.? ? COMPARISON:? None. ? FINDINGS: ? Image quality:? Excellent.? ? Extravascular tissues:? Lung bases are clear.? Heart size is normal.? Liver is normal in size and enhancement.? Mild diffuse hepatic steatosis.? Gallbladder is surgically absent. .? Biliary system is non dilated.? Pancreas enhances normally.? Spleen is normal in size and enhancement.? No adrenal nodules.? Kidneys are normal in size and enhancement, without hydronephrosis.? Non-opacified bowel loops demonstrate normal wall thickness and caliber.? Sigmoid diverticulosis without evidence of diverticulitis.? No free fluid or air.? No retroperitoneal or mesenteric adenopathy.? No ventral hernias.? Fat containing right inguinal hernia without inguinal adenopathy.? No suspicious bony abnormalities.? No vertebral body compression fractures.? ? Abdominal aorta:? Normal caliber.? Atherosclerotic calcifications.? Common iliacs and external iliacs are patent. ? Mesenteric arteries:? Celiac, SMA, and KATHERINE are widely patent. ? Renal arteries:? Grossly patent. ? IMPRESSION:? ? 1. Atherosclerotic calcifications.? Otherwise unremarkable aorta and its attachments. ? 2. No evidence acute abdominal process. ? 3. Mild diffuse hepatic steatosis. ? 4. Remote cholecystectomy. ? 5. Diverticulosis without evidence of diverticulitis.? ? ? Dictated by: Dimitrios Bryant M.D. on 08/07/2022 at 16:44 ? ? Approved by: Dimitrios Bryant M.D. on 08/07/2022 at 16:49 ? [facility] Narrative Medical decision making narrative: Patient here with . Complains of multiple symptoms/complaints. Patient recovered from COVID infection 5 weeks ago. About a week later he had low back pain and then upper neck pain. Those resolved. Recently he developed right wrist pain which he has a Velcro wrist splint placed. He is also had left foot pain which he states has history of gout but does not feel the same. Today had blurry vision with green tint in his vision which has resolved. He is had dizziness. Decreased appetite. Has had dark urine as well. He states he has no energy. Vital signs noted. Tachycardia is persistent which they state he usually has a low heart rate. Denies any chest pain. After history and exam CBC CMP ESR CRP total CK chest x-ray viral swab D-dimer EKG urinalysis [facility] CC: Dyspnea malaise dark urine dizziness arthralgia Complicating co-morbidities: Recent COVID infection Data collected from: Patient and Medical records reviewed: No recent visits for this complaint Differential considered: Includes but not limited to long-term COVID, pulmonary embolism, endocarditis, Exam documented above, pertinent findings include: Tachycardia on exam Lab Test results independently reviewed as above. Pertinent findings: WBC 6.9 hemoglobin 12.1 hematocrit 34 INR 1.2 lactate 1.9 troponin less than 0.012 CRP 4.9 BNP 351 Sodium 121 potassium 4.5 bicarb 15 GFR greater than 60 glucose 146 AST 122 ALT 156 D-dimer 14,541 Independently reviewed EKG normal sinus rhythm rate [address] elevation or depression, normal EKG Imaging studies independently reviewed: Chest x-ray no acute process CT chest angiogram no acute process CT angiogram abdomen and pelvis no acute process Consultations: 5:30 p.m.. Spoke with cardiology Dr. Hair. No medications need to treat for tachycardia. 6:[address] Mae. He would like patient admitted to Dr. Candelaria. He will place admission orders in. Treatments: Normal saline Re-evaluations: 5:45 p.m.. Reviewed results with patient and . Laboratory studies show hyponatremia, he is not surprised. He does understand and need for admission. Discussion: Appropriate for admission for hyponatremia if patient is symptomatic. Reviewed with patient and home improvement advisor and hospitalist and agree for admit. Otherwise exam and imaging are reassuring. Remaining laboratory studies likely COVID effects of inflammation as well as arthralgia. Diagnosis: Hyponatremia <Deepti Bauer, DO - Last Filed: 08/10/22 07:00> Lab Data Labs: Lab Results 08/07/22 08/07/22 08/07/22 Range/Units 14:11 14:11 14:11 WBC 6.9 (4.5-11.0) X10^3/uL RBC 3.96 L (4.5-5.9) X10^6/uL Hgb 12.1 L (13.5-17.5) g/dL Hct 34.4 L (41-53) % MCV 87.0 (80-100) fL MCH 30.5 (26-34) PG MCHC 35.1 (30-36) % RDW 14.2 (11.6-14.8) % Plt Count 154 (150-400) X10^3/uL Neut % (Auto) 85.1 H (50-75) % Lymph % (Auto) 10.1 L (25-40) % [place] % (Auto) 3.4 (3-14) % Eos % (Auto) 0.5 L (2-4) % Baso % (Auto) 0.9 (0-2) % Neut # (Auto) 5900 (5819-1954) /uL Lymph # (Auto) 700 L (8189-4215) /uL [place] # (Auto) 200 (0-900) /uL Eos # (Auto) 0 (0-450) /uL Baso # (Auto) 100 (0-100) /uL ESR (0-15) MM/HR PT 14.0 H (10.1-12.7) SECONDS INR 1.2 (0.9-1.3) D-Dimer (<500) ng/ml Sodium 121 L (137-145) mmol/L Potassium 4.5 (3.4-5.1) mmol/L Chloride 93 L (98-107) mmol/L Carbon Dioxide 15 L (22-32) mmol/L BUN 18 (9-20) mg/dL Creatinine 0.89 (0.66-1.25) mg/dL Estimated GFR > 60 (>60) mL/min BUN/Creatinine Ratio 20.2 (6-22) Glucose 146 H (80-110) mg/dL Lactate (0.7-2.1) mmol/L Calcium 9.2 (8.4-10.2) mg/dL Total Bilirubin 1.0 (0.2-1.3) mg/dL AST 122 H (17-59) IU/L ALT 156 H (<50) IU/L Alkaline Phosphatase 63 (38-126) U/L Total Creatine Kinase (55-170) U/L CK-MB (CK-2) CK-MB (CK-2) Rel Index Troponin I < 0.012 (0.01-0.034) ng/mL C-Reactive Protein (<1.0) mg/dL NT-Pro-B Natriuret Pep 351 H (<125) pg/mL Total Protein 7.9 (6.3-8.2) g/dL Albumin 4.0 (3.5-5.0) g/dL Globulin 3.9 (1.7-4.1) g/dL Albumin/Globulin Ratio 1.0 (1.0-2.8) Urine RBC (0-5/HPF) Urine WBC (0-5/HPF) Ur Squamous Epith Cells (0-5/HPF) Ur Transition Epith Cell (0-5/HPF) Ur Renal Epithelial Cell (0-1/HPF) Urine Bacteria (None) Ur Culture Indicated? Chlamy pneumoniae PCR (Not Detect) Adenovirus (PCR) (Not Detect) B. pertussis DNA (PCR) (Not Detecte) B.parapertussis DNA PCR (Not Detecte) Coronavirus OC43 (PCR) (Not Detect) Coronavirus HKU1 (PCR) (Not Detect) Coronavirus 229E (PCR) (Not Detect) SARS-CoV-2 (PCR) (Not Detecte) Coronavirus NL63 (PCR) (Not Detect) Human Metapneumovir PCR (Not Detect) Influenza Type A (PCR) (Not Detect) Influenza Type B (PCR) (Not Detect) M. pneumoniae (PCR) (Not Detect) Parainfluenza 1 (PCR) (Not Detect) Parainfluenza 2 (PCR) (Not Detect) Parainfluenza 3 (PCR) (Not Detect) Parainfluenza 4 (PCR) (Not Detect) RSV (PCR) (Not Detect) Entero/Rhino (PCR) (Not Detect) 08/07/22 08/07/22 08/07/22 Range/Units 14:11 14:11 14:11 WBC (4.5-11.0) X10^3/uL RBC (4.5-5.9) X10^6/uL Hgb (13.5-17.5) g/dL Hct (41-53) % MCV (80-100) fL MCH (26-34) PG MCHC (30-36) % RDW (11.6-14.8) % Plt Count (150-400) X10^3/uL Neut % (Auto) (50-75) % Lymph % (Auto) (25-40) % [place] % (Auto) (3-14) % Eos % (Auto) (2-4) % Baso % (Auto) (0-2) % Neut # (Auto) (8214-1573) /uL Lymph # (Auto) (6578-8501) /uL [place] # (Auto) (0-900) /uL Eos # (Auto) (0-450) /uL Baso # (Auto) (0-100) /uL ESR 32 H (0-15) MM/HR PT (10.1-12.7) SECONDS INR (0.9-1.3) D-Dimer (<500) ng/ml Sodium (137-145) mmol/L Potassium (3.4-5.1) mmol/L Chloride (98-107) mmol/L Carbon Dioxide (22-32) mmol/L BUN (9-20) mg/dL Creatinine (0.66-1.25) mg/dL Estimated GFR (>60) mL/min BUN/Creatinine Ratio (6-22) Glucose (80-110) mg/dL Lactate 1.9 (0.7-2.1) mmol/L Calcium (8.4-10.2) mg/dL Total Bilirubin (0.2-1.3) mg/dL AST (17-59) IU/L ALT (<50) IU/L Alkaline Phosphatase (38-126) U/L Total Creatine Kinase 150 (55-170) U/L CK-MB (CK-2) TNP CK-MB (CK-2) Rel Index TNP Troponin I (0.01-0.034) ng/mL C-Reactive Protein 4.9 H (<1.0) mg/dL NT-Pro-B Natriuret Pep (<125) pg/mL Total Protein (6.3-8.2) g/dL Albumin (3.5-5.0) g/dL Globulin (1.7-4.1) g/dL Albumin/Globulin Ratio (1.0-2.8) Urine RBC (0-5/HPF) Urine WBC (0-5/HPF) Ur Squamous Epith Cells (0-5/HPF) Ur Transition Epith Cell (0-5/HPF) Ur Renal Epithelial Cell (0-1/HPF) Urine Bacteria (None) Ur Culture Indicated? Chlamy pneumoniae PCR (Not Detect) Adenovirus (PCR) (Not Detect) B. pertussis DNA (PCR) (Not Detecte) B.parapertussis DNA PCR (Not Detecte) Coronavirus OC43 (PCR) (Not Detect) Coronavirus HKU1 (PCR) (Not Detect) Coronavirus 229E (PCR) (Not Detect) SARS-CoV-2 (PCR) (Not Detecte) Coronavirus NL63 (PCR) (Not Detect) Human Metapneumovir PCR (Not Detect) Influenza Type A (PCR) (Not Detect) Influenza Type B (PCR) (Not Detect) M. pneumoniae (PCR) (Not Detect) Parainfluenza 1 (PCR) (Not Detect) Parainfluenza 2 (PCR) (Not Detect) Parainfluenza 3 (PCR) (Not Detect) Parainfluenza 4 (PCR) (Not Detect) RSV (PCR) (Not Detect) Entero/Rhino (PCR) (Not Detect) 08/07/22 08/07/22 08/07/22 Range/Units 14:11 14:14 15:35 WBC (4.5-11.0) X10^3/uL RBC (4.5-5.9) X10^6/uL Hgb (13.5-17.5) g/dL Hct (41-53) % MCV (80-100) fL MCH (26-34) PG MCHC (30-36) % RDW (11.6-14.8) % Plt Count (150-400) X10^3/uL Neut % (Auto) (50-75) % Lymph % (Auto) (25-40) % [place] % (Auto) (3-14) % Eos % (Auto) (2-4) % Baso % (Auto) (0-2) % Neut # (Auto) (8765-5397) /uL Lymph # (Auto) (2136-3862) /uL [place] # (Auto) (0-900) /uL Eos # (Auto) (0-450) /uL Baso # (Auto) (0-100) /uL ESR (0-15) MM/HR PT (10.1-12.7) SECONDS INR (0.9-1.3) D-Dimer 56613 H (<500) ng/ml Sodium (137-145) mmol/L Potassium (3.4-5.1) mmol/L Chloride (98-107) mmol/L Carbon Dioxide (22-32) mmol/L BUN (9-20) mg/dL Creatinine (0.66-1.25) mg/dL Estimated GFR (>60) mL/min BUN/Creatinine Ratio (6-22) Glucose (80-110) mg/dL Lactate (0.7-2.1) mmol/L Calcium (8.4-10.2) mg/dL Total Bilirubin (0.2-1.3) mg/dL AST (17-59) IU/L ALT (<50) IU/L Alkaline Phosphatase (38-126) U/L Total Creatine Kinase (55-170) U/L CK-MB (CK-2) CK-MB (CK-2) Rel Index Troponin I (0.01-0.034) ng/mL C-Reactive Protein (<1.0) mg/dL NT-Pro-B Natriuret Pep (<125) pg/mL Total Protein (6.3-8.2) g/dL Albumin (3.5-5.0) g/dL Globulin (1.7-4.1) g/dL Albumin/Globulin Ratio (1.0-2.8) Urine RBC 0-1/hpf (0-5/HPF) Urine WBC 0-1/hpf (0-5/HPF) Ur Squamous Epith Cells 0-1 /hpf (0-5/HPF) Ur Transition Epith Cell 0-1/hpf (0-5/HPF) Ur Renal Epithelial Cell 0-1/hpf (0-1/HPF) Urine Bacteria None seen (None) Ur Culture Indicated? Cult not indicated Chlamy pneumoniae PCR Not detected (Not Detect) Adenovirus (PCR) Not detected (Not Detect) B. pertussis DNA (PCR) Not detected (Not Detecte) B.parapertussis DNA PCR Not detected (Not Detecte) Coronavirus OC43 (PCR) Not detected (Not Detect) Coronavirus HKU1 (PCR) Not detected (Not Detect) Coronavirus 229E (PCR) Not detected (Not Detect) SARS-CoV-2 (PCR) Not detected (Not Detecte) Coronavirus NL63 (PCR) Not detected (Not Detect) Human Metapneumovir PCR Not detected (Not Detect) Influenza Type A (PCR) Not detected (Not Detect) Influenza Type B (PCR) Not detected (Not Detect) M. pneumoniae (PCR) Not detected (Not Detect) Parainfluenza 1 (PCR) Not detected (Not Detect) Parainfluenza 2 (PCR) Not detected (Not Detect) Parainfluenza 3 (PCR) Not detected (Not Detect) Parainfluenza 4 (PCR) Not detected (Not Detect) RSV (PCR) Not detected (Not Detect) Entero/Rhino (PCR) Not detected (Not Detect) Urine Dip Bedside Urine Glucose Negative Bedside Urine Bilirubin - Negative Bedside Urine Ketone - Negative Urine Specific [place] 1.015 Bedside Urine Occult Blood +/- Bedside Urine pH 5.5 Bedside Urine Protein +/- 15 Bedside Urine Urobilinogen - Negative Bedside Urine Nitrite - Negative Bedside Urine Leukocytes - Negative Esterase MDM Narrative Medical decision making narrative: Patient here with . Complains of multiple symptoms/complaints. Patient recovered from COVID infection 5 weeks ago. About a week later he had low back pain and then upper neck pain. Those resolved. Recently he developed right wrist pain which he has a Velcro wrist splint placed. He is also had left foot pain which he states has history of gout but does not feel the same. Today had blurry vision with green tint in his vision which has resolved. He is had dizziness. Decreased appetite. Has had dark urine as well. He states he has no energy. Vital signs noted. Tachycardia is persistent which they state he usually has a low heart rate. Denies any chest pain. After history and exam CBC CMP ESR CRP total CK chest x-ray viral swab D-dimer EKG urinalysis [facility] CC: Dyspnea malaise dark urine dizziness arthralgia Complicating co-morbidities: Recent COVID infection Data collected from: Patient and Medical records reviewed: No recent visits for this complaint Differential considered: Includes but not limited to long-term COVID, pulmonary embolism, endocarditis, Exam documented above, pertinent findings include: Tachycardia on exam Lab Test results independently reviewed as above. Pertinent findings: WBC 6.9 hemoglobin 12.1 hematocrit 34 INR 1.2 lactate 1.9 troponin less than 0.012 CRP 4.9 BNP 351 Sodium 121 potassium 4.5 bicarb 15 GFR greater than 60 glucose 146 AST 122 ALT 156 D-dimer 14,541 Independently reviewed EKG normal sinus rhythm rate [address] elevation or depression, normal EKG Imaging studies independently reviewed: Chest x-ray no acute process CT chest angiogram no acute process CT angiogram abdomen and pelvis no acute process Consultations: 5:30 p.m.. Spoke with cardiology Dr. Hair. No medications need to treat for tachycardia. 6:[address] Mae. He would like patient admitted to Dr. Candelaria. He will place admission orders in. Treatments: Normal saline Re-evaluations: 5:45 p.m.. Reviewed results with patient and . Laboratory studies show hyponatremia, he is not surprised. He does understand and need for admission. Discussion: Appropriate for admission for hyponatremia if patient is symptomatic. Reviewed with patient and home improvement advisor and hospitalist and agree for admit. Otherwise exam and imaging are reassuring. Remaining laboratory studies likely COVID effects of inflammation as well as arthralgia. Diagnosis: Hyponatremia patient was admitted for observation for hyponatremia discharged home and then had 2/2 positive blood cultures with Gram-positive cocci. Left voicemail with patient's number at [phone] for patient to call back. We will also reach out to patient's primary care doctor new line through the on-call physician as well as they do admit their own patients.. Discharge Plan Departure Patient Disposition: Admitted as Observation Clinical Impression: Hyponatremia Admit Date/Time: 08/07/22 18:01 Admit Provider: Viola Garcia
[2022-08-07 14:54] LABS: Erythrocyte Sedimentation Rate 32 MM/HR (0-15)
[2022-08-07 14:58] LABS: D Dimer 14541 ng/ml (<500)
[2022-08-07 14:59] LABS: HEMOLYSIS 97 (0-50); NT-proBNP (BNP-Adult 18+) 351 pg/mL (<125); Troponin I < 0.012 ng/mL (0.01-0.034)
[2022-08-07 15:10] LABS: Alanine Aminotransferase 156 IU/L (<50); Alkaline Phosphatase 63 U/L (38-126); Aspartate Aminotransferase 122 IU/L (17-59); BUN Creatinine Ratio 20.2 (6-22); Blood Urea Nitrogen 18 mg/dL (9-20); Calcium 9.2 mg/dL (8.4-10.2); Carbon Dioxide 15 mmol/L (22-32); Chloride 93 mmol/L (98-107); Estimated Glomerular Filt Rate > 60 mL/min (>60); Globulin 3.9 g/dL (1.7-4.1); Glucose 146 mg/dL (80-110); Potassium 4.5 mmol/L (3.4-5.1); Sodium 121 mmol/L (137-145); Total Protein 7.9 g/dL (6.3-8.2)
[2022-08-07] MEDS: SODIUM CHLORIDE 0.9% 1,000 ML 1000 ML IV (15:18)
--- NOTE | 2022-08-07 15:28 | DI.CT.S_ITS ---
PROCEDURE: CT ANGIO CHEST PE PROTOCOL INDICATIONS: Dyspnea TECHNIQUE: After the administration of intravenous contrast, 2 mm thick sections acquired from the pulmonary apices to the posterior costophrenic angles. 3-dimensional maximum intensity projection (MIP) coronal and sagittal reformats were then acquired through the thorax. For radiation dose reduction, the following was used: automated exposure control, adjustment of mA and/or kV according to patient size. COMPARISON: [facility], CT, CT ANGIO CHEST PE PROTOCOL, 11/06/2019, 15:29. FINDINGS: Image quality: Excellent. Pulmonary arteries: Pulmonary arteries are normal in size, and demonstrate no intraluminal filling defects to suggest central pulmonary embolism. Lungs and pleura: Lungs are clear. No pleural effusions or pneumothorax. Central and peripheral airways are patent. Mediastinum: Heart size is normal, without pericardial effusion. Moderate coronary artery calcifications. No mediastinal or hilar adenopathy. Mild aneurysmal dilatation of the ascending aorta, which on image 91/4 measures 4.3 cm. It is not significantly changed in size. Esophagus is normal in caliber, without hiatal hernia. Bones and chest wall: No suspicious bony lesions. Ribs and thoracic spine appear intact throughout. Thyroid gland is unremarkable. No axillary or supraclavicular adenopathy. Abdomen: Visualized upper abdominal solid organs appear normal in the early arterial phase of enhancement. IMPRESSION: 1. No evidence acute pulmonary emboli. 2. No evidence acute pulmonary process. 3. Moderate coronary artery calcifications. 4. Stable mild aneurysmal dilatation of the ascending aorta. Dictated by: Dimitrios Bryant M.D. on 08/07/2022 at 16:50 Approved by: Dimitrios Bryant M.D. on 08/07/2022 at 17:18
--- NOTE | 2022-08-07 15:28 | DI.CT.S_ITS ---
PROCEDURE: CT ANGIO ABDOMEN PELVIS INDICATIONS: Dyspnea TECHNIQUE: After the administration of intravenous contrast, 2.5 mm sections acquired from the diaphragm to the iliac crests. 10 mm maximum intensity projection (MIP) coronal and sagittal reformats were then performed. For radiation dose reduction, the following was used: automated exposure control. COMPARISON: None. FINDINGS: Image quality: Excellent. Extravascular tissues: Lung bases are clear. Heart size is normal. Liver is normal in size and enhancement. Mild diffuse hepatic steatosis. Gallbladder is surgically absent. . Biliary system is non dilated. Pancreas enhances normally. Spleen is normal in size and enhancement. No adrenal nodules. Kidneys are normal in size and enhancement, without hydronephrosis. Non-opacified bowel loops demonstrate normal wall thickness and caliber. Sigmoid diverticulosis without evidence of diverticulitis. No free fluid or air. No retroperitoneal or mesenteric adenopathy. No ventral hernias. Fat containing right inguinal hernia without inguinal adenopathy. No suspicious bony abnormalities. No vertebral body compression fractures. Abdominal aorta: Normal caliber. Atherosclerotic calcifications. Common iliacs and external iliacs are patent. Mesenteric arteries: Celiac, SMA, and KATHERINE are widely patent. Renal arteries: Grossly patent. IMPRESSION: 1. Atherosclerotic calcifications. Otherwise unremarkable aorta and its attachments. 2. No evidence acute abdominal process. 3. Mild diffuse hepatic steatosis. 4. Remote cholecystectomy. 5. Diverticulosis without evidence of diverticulitis. Dictated by: Dimitrios Bryant M.D. on 08/07/2022 at 16:44 Approved by: Dimitrios Brynat M.D. on 08/07/2022 at 16:49
[2022-08-07 16:11] LABS: Adenovirus Not Detected (Not Detect); B. parapertussis Not Detected (Not Detecte); Bordetella pertussis Not Detected (Not Detecte); Chlamydophila pneumoniae Not Detected (Not Detect); Coronavirus 229E Not Detected (Not Detect); Coronavirus HKU1 Not Detected (Not Detect); Coronavirus NL 63 Not Detected (Not Detect); Coronavirus OC43 Not Detected (Not Detect); Human Metapneumovirus Not Detected (Not Detect); Human Rhinovirus/Enterovirus Not Detected (Not Detect); Influenza A Not Detected (Not Detect); Influenza B Not Detected (Not Detect); Mycoplasma pneumoniae Not Detected (Not Detect); Parainfluenza Virus 1 Not Detected (Not Detect); Parainfluenza Virus 2 Not Detected (Not Detect); Parainfluenza Virus 3 Not Detected (Not Detect); Parainfluenza Virus 4 Not Detected (Not Detect); Respiratory Syncytial Virus Not Detected (Not Detect); SARS- CoV-2 Not Detected (Not Detecte)
[2022-08-07 18:19] LABS: Bacteria Urine None Seen; Culture Indicated Urine Cult Not Indicated; RBC Urine 0-1/HPF (0-5/HPF); Renal Epithelial Cells Urine 0-1/HPF (0-1/HPF); Squamous Epithelial Cell Urine 0-1 /HPF (0-5/HPF); Transitional Epi Cells Urine 0-1/HPF (0-5/HPF); WBC Urine 0-1/HPF (0-5/HPF)
[2022-08-07] MEDS: SODIUM CHLORIDE 0.45% 1,000 ML 100 ML IV (20:56)
[2022-08-07] MEDS: ACETAMINOPHEN 325 MG TABLET 650 MG PO (20:57)
[2022-08-08] VITALS (13 sets, daily range): BP systolic 113–148; BP diastolic 55–76; PULSE 79–111; RESP 17–20; TEMP 36.1–39.5; O2SAT 96–98
[2022-08-08] MEDS: ACETAMINOPHEN 325 MG TABLET 650 MG PO ×4 (03:47→22:14)
[2022-08-08 06:27] LABS: Alanine Aminotransferase 116 IU/L (<50); Albumin 3.2 g/dL (3.5-5.0); Alkaline Phosphatase 57 U/L (38-126); Aspartate Aminotransferase 61 IU/L (17-59); BUN Creatinine Ratio 16.5 (6-22); Bilirubin Total 0.7 mg/dL (0.2-1.3); Blood Urea Nitrogen 14 mg/dL (9-20); Calcium 7.8 mg/dL (8.4-10.2); Carbon Dioxide 20 mmol/L (22-32); Chloride 98 mmol/L (98-107); Estimated Glomerular Filt Rate > 60 mL/min (>60); Globulin 3.2 g/dL (1.7-4.1); Glucose 139 mg/dL (80-110); HEMOLYSIS < 15 (0-50); Potassium 4.3 mmol/L (3.4-5.1); Sodium 125 mmol/L (137-145); Total Protein 6.4 g/dL (6.3-8.2)
[2022-08-08 06:34] LABS: NT-proBNP (BNP-Adult 18+) 525 pg/mL (<125)
[2022-08-08] MEDS: SODIUM CHLORIDE 0.45% 1,000 ML 100 ML IV (07:34)
--- NOTE | 2022-08-08 08:31 | PM.HP.1 ---
History of Present Illness History of Present Illness Date Patient Seen: 08/08/22 Chief complaint: SOB/exp to covid increasing worse Narrative: Pt is a 66yo man with hypertension, prediabetes who presented not feeling well. The pt reports that he had COVID approximately 5 weeks ago. Since then, he has had a significantly decreased appetite. He has been drinking copious water to stay hydrated, however. He has been nauseous for several weeks, but denies any vomiting. He has been very fatigued for the last several weeks, acutely worsening in the past 2-3 days. Yesterday, he noticed that his vision turned green. This is what prompted him to to come to the ED for evaluation. The pt denies any recent chest pain, SOB, LE edema. He has felt chilled, but denies any known fevers. He has had frequent looser stools in the morning, but denies diffuse diarrhea. He denies any dysuria. He denies any abdominal pain. In the ED, CXR, CT PE, and CT abd/pelvis were negative. Lab work revealed significant hyponatremia of 121. CRP was elevated, and WBC count was normal. The pt was admitted for treatment of his hyponatremia. 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 Gym: Cardio/muscle. Meds Home Medications and Allergies Home Medications Medication Instructions Recorded Confirmed Type amlodipine 2.5 mg tablet See Rx Instructions .Route 08/04/22 08/07/22 Rx .COMPLEX #180 tabs lisinopril 20 mg tablet See Rx Instructions .Route 08/04/22 08/07/22 Rx .COMPLEX #90 tabs ibuprofen 200 mg tablet 400 mg PO Q6H PRN Pain (Scale 08/07/22 08/07/22 History Score 4-6) Allergies Allergy/AdvReac Type Severity Reaction Status Date / Time No Known Drug Allergies Allergy Verified 08/07/22 14:07 Exam Vital Signs (past 8 hours): - 08/08/22 04:33 08/08/22 04:00 08/08/22 05:19 Temperature 103.1 F H 103.1 F H 100.3 F H Pulse Rate 111 H Respiratory Rate 18 Blood Pressure 132/57 L Pulse Oximetry 96 Oxygen Flow Rate 0 08/08/22 05:39 08/08/22 07:22 Temperature 99.3 F 97.0 F L Pulse Rate 82 Respiratory Rate 20 Blood Pressure 113/55 L Pulse Oximetry 98 Oxygen Flow Rate Oxygen Delivery Method Room Air Oxygen Flow Rate 0 Narrative Exam Narrative: Gen: NAD, sitting comfortably in bed, tearful HEENT: normocephalic, atraumatic, sclera clear Neck: no LAD, no JVD CV: RRR, no murmurs Resp: clear to auscultation bilaterally, no wheezes or crackles Abd: soft, nontender, nondistended, normoactive bowel sounds Ext: no edema Objective Labs 08/07/22 14:11 08/08/22 11:15 Labs: Laboratory Results - last 24 hr 08/07/22 08/07/22 08/07/22 14:11 14:11 14:11 WBC 6.9 RBC 3.96 L Hgb 12.1 L Hct 34.4 L MCV 87.0 MCH 30.5 MCHC 35.1 RDW 14.2 Plt Count 154 Neut % (Auto) 85.1 H Lymph % (Auto) 10.1 L [place] % (Auto) 3.4 Eos % (Auto) 0.5 L Baso % (Auto) 0.9 Neut # (Auto) 5900 Lymph # (Auto) 700 L [place] # (Auto) 200 Eos # (Auto) 0 Baso # (Auto) 100 ESR PT 14.0 H INR 1.2 D-Dimer Sodium 121 L Potassium 4.5 Chloride 93 L Carbon Dioxide 15 L BUN 18 Creatinine 0.89 Estimated GFR > 60 BUN/Creatinine Ratio 20.2 Glucose 146 H Lactate Calcium 9.2 Total Bilirubin 1.0 AST 122 H ALT 156 H Alkaline Phosphatase 63 Total Creatine Kinase CK-MB (CK-2) CK-MB (CK-2) Rel Index Troponin I < 0.012 C-Reactive Protein NT-Pro-B Natriuret Pep 351 H Total Protein 7.9 Albumin 4.0 Globulin 3.9 Albumin/Globulin Ratio 1.0 Urine RBC Urine WBC Ur Squamous Epith Cells Ur Transition Epith Cell Ur Renal Epithelial Cell Urine Bacteria Ur Culture Indicated? Chlamy pneumoniae PCR Adenovirus (PCR) B. pertussis DNA (PCR) B.parapertussis DNA PCR Coronavirus OC43 (PCR) Coronavirus HKU1 (PCR) Coronavirus 229E (PCR) SARS-CoV-2 (PCR) Coronavirus NL63 (PCR) Human Metapneumovir PCR Influenza Type A (PCR) Influenza Type B (PCR) M. pneumoniae (PCR) Parainfluenza 1 (PCR) Parainfluenza 2 (PCR) Parainfluenza 3 (PCR) Parainfluenza 4 (PCR) RSV (PCR) Entero/Rhino (PCR) 08/07/22 08/07/22 08/07/22 14:11 14:11 14:11 WBC RBC Hgb Hct MCV MCH MCHC RDW Plt Count Neut % (Auto) Lymph % (Auto) [place] % (Auto) Eos % (Auto) Baso % (Auto) Neut # (Auto) Lymph # (Auto) [place] # (Auto) Eos # (Auto) Baso # (Auto) ESR 32 H PT INR D-Dimer Sodium Potassium Chloride Carbon Dioxide BUN Creatinine Estimated GFR BUN/Creatinine Ratio Glucose Lactate 1.9 Calcium Total Bilirubin AST ALT Alkaline Phosphatase Total Creatine Kinase 150 CK-MB (CK-2) TNP CK-MB (CK-2) Rel Index TNP Troponin I C-Reactive Protein 4.9 H NT-Pro-B Natriuret Pep Total Protein Albumin Globulin Albumin/Globulin Ratio Urine RBC Urine WBC Ur Squamous Epith Cells Ur Transition Epith Cell Ur Renal Epithelial Cell Urine Bacteria Ur Culture Indicated? Chlamy pneumoniae PCR Adenovirus (PCR) B. pertussis DNA (PCR) B.parapertussis DNA PCR Coronavirus OC43 (PCR) Coronavirus HKU1 (PCR) Coronavirus 229E (PCR) SARS-CoV-2 (PCR) Coronavirus NL63 (PCR) Human Metapneumovir PCR Influenza Type A (PCR) Influenza Type B (PCR) M. pneumoniae (PCR) Parainfluenza 1 (PCR) Parainfluenza 2 (PCR) Parainfluenza 3 (PCR) Parainfluenza 4 (PCR) RSV (PCR) Entero/Rhino (PCR) 08/07/22 08/07/22 08/07/22 14:11 14:14 15:35 WBC RBC Hgb Hct MCV MCH MCHC RDW Plt Count Neut % (Auto) Lymph % (Auto) [place] % (Auto) Eos % (Auto) Baso % (Auto) Neut # (Auto) Lymph # (Auto) [place] # (Auto) Eos # (Auto) Baso # (Auto) ESR PT INR D-Dimer 49620 H Sodium Potassium Chloride Carbon Dioxide BUN Creatinine Estimated GFR BUN/Creatinine Ratio Glucose Lactate Calcium Total Bilirubin AST ALT Alkaline Phosphatase Total Creatine Kinase CK-MB (CK-2) CK-MB (CK-2) Rel Index Troponin I C-Reactive Protein NT-Pro-B Natriuret Pep Total Protein Albumin Globulin Albumin/Globulin Ratio Urine RBC 0-1/hpf Urine WBC 0-1/hpf Ur Squamous Epith Cells 0-1 /hpf Ur Transition Epith Cell 0-1/hpf Ur Renal Epithelial Cell 0-1/hpf Urine Bacteria None seen Ur Culture Indicated? Cult not indicated Chlamy pneumoniae PCR Not detected Adenovirus (PCR) Not detected B. pertussis DNA (PCR) Not detected B.parapertussis DNA PCR Not detected Coronavirus OC43 (PCR) Not detected Coronavirus HKU1 (PCR) Not detected Coronavirus 229E (PCR) Not detected SARS-CoV-2 (PCR) Not detected Coronavirus NL63 (PCR) Not detected Human Metapneumovir PCR Not detected Influenza Type A (PCR) Not detected Influenza Type B (PCR) Not detected M. pneumoniae (PCR) Not detected Parainfluenza 1 (PCR) Not detected Parainfluenza 2 (PCR) Not detected Parainfluenza 3 (PCR) Not detected Parainfluenza 4 (PCR) Not detected RSV (PCR) Not detected Entero/Rhino (PCR) Not detected 08/08/22 08/08/22 05:23 05:23 WBC RBC Hgb Hct MCV MCH MCHC RDW Plt Count Neut % (Auto) Lymph % (Auto) [place] % (Auto) Eos % (Auto) Baso % (Auto) Neut # (Auto) Lymph # (Auto) [place] # (Auto) Eos # (Auto) Baso # (Auto) ESR PT INR D-Dimer Sodium 125 L Potassium 4.3 Chloride 98 Carbon Dioxide 20 L BUN 14 Creatinine 0.85 Estimated GFR > 60 BUN/Creatinine Ratio 16.5 Glucose 139 H Lactate Calcium 7.8 L Total Bilirubin 0.7 AST 61 H ALT 116 H Alkaline Phosphatase 57 Total Creatine Kinase CK-MB (CK-2) CK-MB (CK-2) Rel Index Troponin I C-Reactive Protein NT-Pro-B Natriuret Pep 525 H Total Protein 6.4 Albumin 3.2 L Globulin 3.2 Albumin/Globulin Ratio 1.0 Urine RBC Urine WBC Ur Squamous Epith Cells Ur Transition Epith Cell Ur Renal Epithelial Cell Urine Bacteria Ur Culture Indicated? Chlamy pneumoniae PCR Adenovirus (PCR) B. pertussis DNA (PCR) B.parapertussis DNA PCR Coronavirus OC43 (PCR) Coronavirus HKU1 (PCR) Coronavirus 229E (PCR) SARS-CoV-2 (PCR) Coronavirus NL63 (PCR) Human Metapneumovir PCR Influenza Type A (PCR) Influenza Type B (PCR) M. pneumoniae (PCR) Parainfluenza 1 (PCR) Parainfluenza 2 (PCR) Parainfluenza 3 (PCR) Parainfluenza 4 (PCR) RSV (PCR) Entero/Rhino (PCR) Assessment & Plan Assessment & Plan narrative: Pt is a 66yo man with hypertension, prediabetes who presented with fatigue, nausea, and decreased appetite. Found to have severe hyponatremia with a sodium of 121. 1) Hyponatremia: Last known sodium 139, 12/2021. Likely acute due to decreased sodium intake and significant hydration. Most recent sodium 126. - Transition from 1/2 NS to NS, 100cc/hr to continue gradual sodium rise - Trend BMP with repeat in 6hrs 2) Fever: Febrile to 103F last night. Pt feels is related to having too many blankets. Normal WBC count, pt basically singer-scanned in the ED without source. Does have loose BMs, stool studies pending. - Continue to monitor - Blood cultures ordered 3) Hypertension: BPs now in good range - Continue to hold home antihypertensives FEN: General diet Code: Full DVT ppx: Lovenox Dispo: Pending improvement in sodium. Hopeful for d/c by tomorrow afternoon. Quality VTE Deep Vein Thrombosis/Pulmonary Embolism Present on Admission: No
--- NOTE | 2022-08-08 11:01 | CM.DANOTE ---
DCP: Patient is a 66yo M here for complications following COVID 5 weeks ago. Currently has low sodium. Payer: Medicare and [employer] preferred PCP: Dr. Radha BENITO reviewed EMR. 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 Patient appeared A/Ox4 and was accompanied by spouse, Kristina ([phone]). Patient reported being independent at baseline with all needs and drives personal vehicle. Patient reports as far as he knew, he was going to be here another day to monitor his sodium levels. Patient reports they have a daughter close by that could also come out and help them if needed. Patient reports his could help him with any needs on d/c. Patient is open if deemed necessary to HH, but patient, spouse, and this author agree that is unlikely. patient expressed no verbal preference for agency. Plan: likely home with spouse with no needs, potentially today, sounds like more likely tomorrow. Transport in POV. CM team will continue to follow with needs. THONG Page. Discharge Planning/Care Management CM Discharge Assessment Start: 08/08/22 10:45 Freq: Status: Active Protocol: Document 08/08/22 10:46 SL (Rec: 08/08/22 10:51 [id number]) Discharge Planning Assessment Assigned [facility] Psych[facility] THONG Page DPOA/Assigned Designee Name Kristina Kovacs (spouse) Contact Information [phone]) Advance Directives? No History Provided By Patient,Significant Other, Medical Record Prior Living Arrangements House Household Members spouse Type of transporation used prior to Drives own vehicle admit Independent with ADL's Yes Is patient alert and oriented? Yes Comment likely home no needs. Barriers to Discharge No Discharge Plan Home Transportation Arrangement transport in POV with spouse SNF/HH Preference if needed, no preference Whiteboard Updated in Patient Room with Yes name and ext. # of [facility] Psychiatrist Review Status In Process Next Review Type Continued Stay Review
[2022-08-08 11:47] LABS: BUN Creatinine Ratio 19.2 (6-22); Blood Urea Nitrogen 14 mg/dL (9-20); Calcium 7.9 mg/dL (8.4-10.2); Carbon Dioxide 21 mmol/L (22-32); Chloride 99 mmol/L (98-107); Estimated Glomerular Filt Rate > 60 mL/min (>60); Glucose 137 mg/dL (80-110); HEMOLYSIS < 15 (0-50); Potassium 4.1 mmol/L (3.4-5.1); Sodium 126 mmol/L (137-145)
[2022-08-08] MEDS: SODIUM CHLORIDE 0.9% 1,000 ML 100 ML IV (15:52)
[2022-08-08 18:50] LABS: BUN Creatinine Ratio 17.9 (6-22); Blood Urea Nitrogen 14 mg/dL (9-20); Calcium 7.7 mg/dL (8.4-10.2); Carbon Dioxide 20 mmol/L (22-32); Chloride 97 mmol/L (98-107); Estimated Glomerular Filt Rate > 60 mL/min (>60); Glucose 200 mg/dL (80-110); HEMOLYSIS < 15 (0-50); Potassium 4.7 mmol/L (3.4-5.1); Sodium 125 mmol/L (137-145)
[2022-08-09] MEDS: SODIUM CHLORIDE 0.9% 1,000 ML 100 ML IV ×2 (00:11→08:18)
[2022-08-09 00:24] VITALS: BP 121/61; PULSE 85; RESP 17; TEMP 36.8; O2SAT 95
[2022-08-09 04:00] VITALS: TEMP 37
[2022-08-09] MEDS: ACETAMINOPHEN 325 MG TABLET 650 MG PO (04:00)
[2022-08-09 04:41] VITALS: BP 135/78; PULSE 90; RESP 18; TEMP 37; O2SAT 97
[2022-08-09 06:51] LABS: Add Manual Diff / Slide Review NO; Basophils Absolute Auto 0 /uL (0-100); Basophils Percent Auto 0.4 % (0-2); Eosinophils Absolute Auto 0 /uL (0-450); Eosinophils Percent Auto 0.6 % (2-4); Hematocrit 27.8 % (41-53); Hemoglobin 9.8 g/dL (13.5-17.5); Lymphocytes Absolute Auto 400 /uL (1100-4500); Lymphocytes Percent Auto 10.7 % (25-40); Mean Corpuscular HGB Conc 35.3 % (30-36); Mean Corpuscular Volume 87.7 fL (80-100); Monocytes Absolute Auto 200 /uL (0-900); Monocytes Percent Auto 4.5 % (3-14); Neutrophils Absolute Auto 3500 /uL (1500-7000); Neutrophils Percent Auto 83.8 % (50-75); Platelet Count 132 X10^3/uL (150-400); Red Blood Cell Count 3.17 X10^6/uL (4.5-5.9); White Blood Cell Count 4.2 X10^3/uL (4.5-11.0)
[2022-08-09 07:00] VITALS: O2SAT 95
[2022-08-09 07:07] LABS: BUN Creatinine Ratio 15.7 (6-22); Blood Urea Nitrogen 11 mg/dL (9-20); Calcium 7.7 mg/dL (8.4-10.2); Carbon Dioxide 19 mmol/L (22-32); Chloride 102 mmol/L (98-107); Estimated Glomerular Filt Rate > 60 mL/min (>60); Glucose 151 mg/dL (80-110); HEMOLYSIS < 15 (0-50); Potassium 4.3 mmol/L (3.4-5.1); Sodium 127 mmol/L (137-145)
[2022-08-09 08:44] LABS: Sodium Urine Random 161 mmol/L (30-90)
[2022-08-09 09:00] VITALS: BP 103/61; PULSE 87; RESP 17; TEMP 36.2; O2SAT 95
[2022-08-09 09:46] LABS: Acinetobacter calcoa-baumannii Not Detected (Not Detect); Bacteroides fragilis Not Detected (Not Detect); Candida albicans Not Detected (Not Detect); Candida auris Not Detected (Not Detect); Candida glabrata Not Detected (Not Detect); Candida krusei Not Detected (Not Detect); Candida parapsilosis Not Detected (Not Detect); Candida tropicalis Not Detected (Not Detect); Cryptococcus neoformans/gatti Not Detected (Not Detect); Enterobacter cloacae complex Not Detected (Not Detect); Enterobacterales Not Detected (Not Detect); Enterococcus faecalis Not Detected (Not Detect); Enterococcus faecium Not Detected (Not Detect); Haemophilus influenzae Not Detected (Not Detect); Klebsiella aerogenes Not Detected (Not Detect); Listeria monocytogenes Not Detected (Not Detect); Neisseria meningitidis Not Detected (Not Detect); Proteus species Not Detected (Not Detect); Pseudomonas aeruginosa Not Detected (Not Detect); Salmonella species Not Detected (Not Detect); Serratia marcescens Not Detected (Not Detect); Staphylococcus epidermidis Not Detected (Not Detect); Staphylococcus lugdunensis Not Detected (Not Detect); Staphylococcus species Not Detected (Not Detect); Stenotrophomonas maltophilia Not Detected (Not Detect); Streptococcus agalactiae (Gr B Not Detected (Not Detect); Streptococcus pneumonia Not Detected (Not Detect); Streptococcus pyogenes (Gr A) Not Detected (Not Detect); Streptococcus species Not Detected (Not Detect)
[2022-08-09 13:00] VITALS: BP 103/61; PULSE 87; RESP 17; TEMP 36.2; O2SAT 95
[2022-08-09 13:23] LABS: BUN Creatinine Ratio 15.7 (6-22); Blood Urea Nitrogen 11 mg/dL (9-20); Calcium 8.3 mg/dL (8.4-10.2); Carbon Dioxide 22 mmol/L (22-32); Chloride 100 mmol/L (98-107); Estimated Glomerular Filt Rate > 60 mL/min (>60); Glucose 135 mg/dL (80-110); HEMOLYSIS < 15 (0-50); Potassium 4.4 mmol/L (3.4-5.1); Sodium 130 mmol/L (137-145)
--- NOTE | 2022-08-09 14:15 | P.DS_ITS ---
History of Present Illness History of Present Illness Date Patient Seen: 08/09/22 Chief complaint: SOB/exp to covid increasing worse Narrative: Pt is a 66yo man with hypertension, prediabetes who presented not feeling well. The pt reports that he had COVID approximately 5 weeks ago. Since then, he has had a significantly decreased appetite. He has been drinking copious water to stay hydrated, however. He has been nauseous for several weeks, but denies any vomiting. He has been very fatigued for the last several weeks, acutely worsening in the past 2-3 days. Yesterday, he noticed that his vision turned green. This is what prompted him to to come to the ED for evaluation. The pt denies any recent chest pain, SOB, LE edema. He has felt chilled, but denies any known fevers. He has had frequent looser stools in the morning, but denies diffuse diarrhea. He denies any dysuria. He denies any abdominal pain. In the ED, CXR, CT PE, and CT abd/pelvis were negative. Lab work revealed significant hyponatremia of 121. CRP was elevated, and WBC count was normal. The pt was admitted for treatment of his hyponatremia. Discharge Providers Provider Date of admission: 08/07/22 18:01 Discharge Date: 08/09/22 Primary care physician: Viola Garcia MD Discharge provider: Viola Garcia MD Summary Hospital Course Discharge Diagnosis: Hyponatremia Hypertension Fever Hospital Course: The pt presented with fatigue, nausea, and decreased appetite and was found to have significant hyponatremia with a sodium of 121. He was initially started on 1/2 NS, which was then transitioned to NS. His sodium gradually improved, to 130 at discharge. The pts symptoms resolved, and the pt reported feeling back to baseline at the time of discharge. He will have a repeat BMP drawn in 2 days to ensure stability of his sodium. His hyponatremia was thought to be due to decreased PO intake and increased water consumption after having COVID. Exam Vital Signs (past 8 hours): - 08/09/22 09:00 08/09/22 13:00 08/09/22 07:00 Temperature 97.1 F L 97.1 F L Pulse Rate 87 87 Respiratory Rate 17 17 Blood Pressure 103/61 103/61 Pulse Oximetry 95 95 95 Oxygen Delivery Method Room Air Oxygen Flow Rate 0 0 Oxygen Delivery Method Room Air Oxygen Flow Rate 0 Narrative Exam Narrative: Gen:? NAD, sitting comfortably in bed, tearful HEENT:? normocephalic, atraumatic, sclera clear CV:? RRR, no murmurs Resp:? clear to auscultation bilaterally, no wheezes or crackles Abd:? soft, nontender, nondistended, normoactive bowel sounds Ext:? no edema Objective Labs 08/09/22 06:05 08/09/22 12:50 Labs: Laboratory Results - last 24 hr 08/08/22 08/08/22 08/08/22 08:04 08:15 18:30 WBC RBC Hgb Hct MCV MCH MCHC RDW Plt Count Neut % (Auto) Lymph % (Auto) [place] % (Auto) Eos % (Auto) Baso % (Auto) Neut # (Auto) Lymph # (Auto) [place] # (Auto) Eos # (Auto) Baso # (Auto) Sodium 125 L Potassium 4.7 Chloride 97 L Carbon Dioxide 20 L BUN 14 Creatinine 0.78 Estimated GFR > 60 BUN/Creatinine Ratio 17.9 Glucose 200 H Calcium 7.7 L Ur Random Sodium 161 H A.calcoaceticus-baumannii cmplx PCR Not detected Bacteroides fragilis Not detected Altagracia albicans (PCR) Not detected Altagracia auris (PCR) Not detected C. glabrata (PCR) Not detected C. krusei (PCR) Not detected C. parapsilosis (PCR) Not detected C. tropicalis (PCR) Not detected C. neoform/gattii (PCR) Not detected Enterobacterales (PCR) Not detected E. cloacae complex PCR Not detected Enterococc faecalis PCR Not detected Enterococc faecium PCR Not detected E. coli (PCR) Not detected H. influenzae (PCR) Not detected Klebsiella aerogenes (PCR) Not detected Klebsiella oxytoca PCR Not detected Klebsiella pneumoniae Not detected List. monocytogenes PCR Not detected N. meningitidis (PCR) Not detected Proteus species (PCR) Not detected Salmonella spp. (PCR) Not detected Serratia marcescens PCR Not detected Staphylococcus sp PCR Not detected Staph aureus (PCR) Not detected Staph epidermidis (PCR) Not detected Staph lugdunensis PCR Not detected S. maltophilia (PCR) Not detected Streptococcus sp PCR Not detected Group A Strep (PCR) Not detected Strep agalactiae (PCR) Not detected Strep pneumoniae (PCR) Not detected P. aeruginosa (PCR) Not detected 08/09/22 08/09/22 08/09/22 06:05 06:05 12:50 WBC 4.2 L RBC 3.17 L Hgb 9.8 L Hct 27.8 L MCV 87.7 MCH 31.0 MCHC 35.3 RDW 14.0 Plt Count 132 L Neut % (Auto) 83.8 H Lymph % (Auto) 10.7 L [place] % (Auto) 4.5 Eos % (Auto) 0.6 L Baso % (Auto) 0.4 Neut # (Auto) 3500 Lymph # (Auto) 400 L [place] # (Auto) 200 Eos # (Auto) 0 Baso # (Auto) 0 Sodium 127 L 130 L Potassium 4.3 4.4 Chloride 102 100 Carbon Dioxide 19 L 22 BUN 11 11 Creatinine 0.70 0.70 Estimated GFR > 60 > 60 BUN/Creatinine Ratio 15.7 15.7 Glucose 151 H 135 H Calcium 7.7 L 8.3 L Ur Random Sodium A.calcoaceticus-baumannii cmplx PCR Bacteroides fragilis Altagracia albicans (PCR) Altagracia auris (PCR) C. glabrata (PCR) C. krusei (PCR) C. parapsilosis (PCR) C. tropicalis (PCR) C. neoform/gattii (PCR) Enterobacterales (PCR) E. cloacae complex PCR Enterococc faecalis PCR Enterococc faecium PCR E. coli (PCR) H. influenzae (PCR) Klebsiella aerogenes (PCR) Klebsiella oxytoca PCR Klebsiella pneumoniae List. monocytogenes PCR N. meningitidis (PCR) Proteus species (PCR) Salmonella spp. (PCR) Serratia marcescens PCR Staphylococcus sp PCR Staph aureus (PCR) Staph epidermidis (PCR) Staph lugdunensis PCR S. maltophilia (PCR) Streptococcus sp PCR Group A Strep (PCR) Strep agalactiae (PCR) Strep pneumoniae (PCR) P. 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 Gym: Cardio/muscle. Discharge Plan Discharge Plan Patient Disposition: Home Provider Discharge Comment: Please limit fluids to 1L daily for now. Return to the lab on Sunday, 08/11, for a sodium check. Discharge orders & Medications Prescriptions: Continued amlodipine 2.5 mg tablet See Rx Instructions .ROUTE .COMPLEX Qty: 180 0RF Dose Instruction: TAKE TWO TABLETS BY MOUTH DAILY Rx Instructions: TAKE TWO TABLETS BY MOUTH DAILY lisinopril 20 mg tablet See Rx Instructions .ROUTE .COMPLEX Qty: 90 0RF Dose Instruction: TAKE ONE TABLET BY MOUTH ONE TIME DAILY Rx Instructions: TAKE ONE TABLET BY MOUTH ONE TIME DAILY ibuprofen 200 mg Tablet 400 mg PO Q6H PRN (Reason: Pain (Scale Score 4-6)) Follow up/Referrals: Viola Garcia MD [Primary Care Provider] - 1 Month Diet/Activity/Treatments Diet: Diet as Tolerated and Regular Visit Report/Discharge Packet Stand Alone Forms: Patient Portal/API, Stroke Signs & Symptoms Discharge Data Primary Care Provider: Viola Garcia Quality VTE Deep Vein Thrombosis/Pulmonary Embolism Present on Admission: No
--- NOTE | 2022-08-09 15:33 | PC.NURSE ---
Patient is A&Ox4, VSS, afebrile on RA. He denies dizzines, [place], n/v, and is independent ambulating in his room with steady gait. IVF NSat 125ml/hr. He eats 100% of meals today.Upon sodium recheck Na+ is 130 . clears patient for discharge home on 1 liter fluid restriction/day, follow up lab ([facility]) on 08/11 and follow up in her office in one month. Patient and verbalize understanding and agreement with discharge plan and follow up with fluid restriction. He is escorted via w/ch with all of his belongings to private vehicle with at 1520 this afternoon for discharge home.
== END 2022-08-09 15:20 | disposition home or self-care (01) | DRG 641 ==
LOC: ED 15:18 → AC 18:26
PROVIDERS: Family Medicine; Admitting Provider Family Medicine; Emergency Provider Emergency Medicine; PCP Family Medicine; Referring Provider Emergency Medicine; Visit Provider Family Medicine
DX: E87.1 Hypo-osmolality and hyponatremia (principal); I10 Essential (primary) hypertension; R50.9 Fever, unspecified; Z87.891 Personal history of nicotine dependence; Z20.822 Contact with and (suspected) exposure to COVID-19
CPT/HCPCS: 36415; 71045; 71275; 74174; 80048; 80053; 81003; 81015; 82550; 83605; 83880; 84300; 84484; 85025; 85379; 85610; 85651; 86140; 87040; 87154; 87186; 87205; 87633; 93005; 93010; 96360; 96361; 99222; 99238; 99284; J7050; Q9967

== ENCOUNTER 2022-08-10 07:47 | Emergency (ER) | payer MEDICARE, OTHER, SELFPAY ==
[2022-08-07 18:18] VITALS: BMI 31.0
--- NOTE | 2022-08-10 07:51 | DI.RAD.S_ITS ---
PROCEDURE: XR CHEST 1V INDICATIONS: bacteremia TECHNIQUE: One view of the chest was acquired. COMPARISON: [facility], CR, XR CHEST 1V, 08/07/2022, 13:57. FINDINGS: Surgical changes and devices: None. Lungs and pleura: Lungs are clear. No pleural effusions or pneumothorax. Mediastinum: Mediastinal contours appear normal. Heart size is normal. Bones and chest wall: No suspicious bony lesions. Overlying soft tissues appear unremarkable. IMPRESSION: No acute cardiopulmonary abnormality. Dictated by: Vamsi Stoner M.D. on 08/10/2022 at 8:17 Approved by: Vamsi Stoner M.D. on 08/10/2022 at 8:17
--- NOTE | 2022-08-10 08:04 | ED_ITS ---
HPI - General Adult General Chief complaint: Recheck/Abnormal Lab/Rx Stated complaint: bacterial infection was told to come to ED Time Seen by Provider: 08/10/22 07:51 History of Present Illness HPI narrative: 66-year-old male nonsmoker with history of hypertension, pre diabetes, relativ bal recent COVID returns after having 2 of 2 blood cultures positive. He was recently admitted feeling generally unwell and found to be hyponatremic, down as low as 121 from a previously normal 139. He denies any headache or blurred vision. Denies chest pain or shortness of breath. He is had no fever or chills. He denies abdominal pain, nausea, vomiting, diarrhea or urinary complaints. Related Data Home Medications Medication Instructions Recorded Confirmed ibuprofen 200 mg tablet 400 mg PO Q6H PRN Pain (Scale 08/07/22 08/07/22 Score 4-6) Previous Rx's Medication Instructions Recorded amlodipine 2.5 mg tablet See Rx Instructions .Route 08/04/22 .COMPLEX #180 tabs lisinopril 20 mg tablet See Rx Instructions .Route 08/04/22 .COMPLEX #90 tabs sulfamethoxazole 800 1 tab PO BID 10 days #20 tabs 08/10/22 mg-trimethoprim 160 mg tablet (Bactrim DS) Allergies Allergy/AdvReac Type Severity Reaction Status Date / Time No Known Drug Allergies Allergy Verified 08/10/22 08:12 Review of Systems Review of Systems Narrative: GENERAL: Denies chills, fatigue, malaise, fever, sweats. HEENT: Denies sinus pain, ear pain, sore throat, difficulty swallowing, dizziness. RESPIRATORY: Denies dyspnea, cough, wheezing, hemoptysis, sputum. CARDIOVASCULAR: Denies chest pain, palpitations, orthopnea, edema, GASTROINTESTINAL: Denies nausea, vomiting, abdominal pain, diarrhea, constipation, melena. : Denies dysuria, frequency, incontinence, hematuria, urinary retention. MUSCULOSKELETAL: denies weakness, joint pain, or bony pain SKIN: Denies rash, skin lesions, or other NEUROLOGIC: Denies weakness, headache, numbness, change in speech, confusion, seizures, incoordination. PSYCHIATRIC: No concerning psychosocial issues. 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 Gym: Cardio/muscle. Smoking Status: Former smoker alcohol intake frequency: a few times a month Substance Use Type: does not use Exam Narrative Exam Narrative: GENERAL: [66] year old patient appears stated age. Well-developed patient, in mild distress. HEAD: Atraumatic. Normocephalic. EYES: Pupils equal round and reactive. Extraocular motions intact. No scleral icterus. No injection or drainage. ENT: Nose without bleeding, purulent drainage. Throat without erythema, tonsillar hypertrophy or exudate. Airway patent. NECK: Trachea midline. Non tender CARDIOVASCULAR: Regular rate and rhythm without murmurs, gallops, or rubs. RESPIRATORY: Clear to auscultation. Breath sounds equal bilaterally. No wheezes, rales, or rhonchi. GASTROINTESTINAL: Abdomen soft, non-tender, nondistended. EXTREMITIES: No edema or joint tenderness. BACK: Nontender without deformity or crepitance. No flank tenderness. NEURO: AOx3. SKIN: No rash or erythema of visible areas Initial Vital Signs Initial Vital Signs: Vital Signs Pulse Rate 96 H 08/10/22 08:12 Respiratory Rate 18 08/10/22 08:12 Blood Pressure 172/80 H 08/10/22 08:12 Pulse Oximetry 95 08/10/22 08:12 Oxygen Delivery Method Room Air 08/10/22 08:12 Course Orders Ordered: Discontinued Medications Ceftriaxone Sodium 1,000 mg/ (Sodium Chloride) 100 mls @ 200 mls/hr IV NOW ONE Stop: 08/10/22 08:08 Last Infusion: 08/10/22 09:16 Dose: 0 mls/hr Documented By: Admin: 08/10/22 08:43 Dose: 200 mls/hr Documented By: NR Consultations Consultation #1: Discussed with on-call provider for the group, Dr. Prabhakar. We discussed brandon zafar's history and physical, recent hospitalization, positive cultures and labs today. We sure the opinion that given the patient is asymptomatic, feeling quite well with reassuring labs there is no indication for hospitalization, he has been given antibiotics here in the emergency department and we discussed options for outpatient and agree Bactrim as an appropriate choice. I will send a prescription to [facility] Vital Signs Vital signs: Vital Signs - 8 hr 08/10/22 08:12 Pulse Rate 96 H Respiratory Rate 18 Blood Pressure 172/80 H Pulse Oximetry 95 Oxygen Delivery Method Room Air Medical Decision Making Lab Data 08/10/22 08:08 08/10/22 08:08 Labs: Lab Results 08/10/22 08/10/22 08/10/22 Range/Units 08:08 08:08 08:08 WBC 5.4 (4.5-11.0) X10^3/uL RBC 3.37 L (4.5-5.9) X10^6/uL Hgb 10.4 L (13.5-17.5) g/dL Hct 29.4 L (41-53) % MCV 87.2 (80-100) fL MCH 31.0 (26-34) PG MCHC 35.5 (30-36) % RDW 13.7 (11.6-14.8) % Plt Count 148 L (150-400) X10^3/uL Neut % (Auto) 79.9 H (50-75) % Lymph % (Auto) 14.7 L (25-40) % [place] % (Auto) 4.4 (3-14) % Eos % (Auto) 0.3 L (2-4) % Baso % (Auto) 0.7 (0-2) % Neut # (Auto) 4300 (0488-9683) /uL Lymph # (Auto) 800 L (1167-6256) /uL [place] # (Auto) 200 (0-900) /uL Eos # (Auto) 0 (0-450) /uL Baso # (Auto) 0 (0-100) /uL Sodium 126 L (137-145) mmol/L Potassium 4.1 (3.4-5.1) mmol/L Chloride 99 (98-107) mmol/L Carbon Dioxide 21 L (22-32) mmol/L BUN 13 (9-20) mg/dL Creatinine 0.75 (0.66-1.25) mg/dL Estimated GFR > 60 (>60) mL/min BUN/Creatinine Ratio 17.3 (6-22) Glucose 126 H (80-110) mg/dL Lactate 0.8 (0.7-2.1) mmol/L Calcium 8.0 L (8.4-10.2) mg/dL Total Bilirubin 0.5 (0.2-1.3) mg/dL AST 56 (17-59) IU/L ALT 87 H (<50) IU/L Alkaline Phosphatase 59 (38-126) U/L Total Creatine Kinase 69 (55-170) U/L CK-MB (CK-2) TNP CK-MB (CK-2) Rel Index TNP Troponin I 0.020 (0.01-0.034) ng/mL Total Protein 6.5 (6.3-8.2) g/dL Albumin 3.3 L (3.5-5.0) g/dL Globulin 3.2 (1.7-4.1) g/dL Albumin/Globulin Ratio 1.0 (1.0-2.8) Procalcitonin 0.38 (<0.5) ng/mL Urine Color Urine Appearance Urine pH (4.5-8.0) Ur Specific Stewart (1.000-1.035) Urine Protein (Negative) Urine Glucose (UA) (Negative) g/dL Urine Ketones (NEGATIVE) Urine Occult Blood (Negative) Urine Nitrate (Negative) Urine Bilirubin (NEGATIVE) Urine Urobilinogen (0.2) E.U./dL Ur Leukocyte Esterase (NEGATIVE) Urine RBC (0-5/HPF) Urine WBC (0-5/HPF) Ur Squamous Epith Cells (0-5/HPF) Urine Bacteria (None) Urine Mucus (Negative) Ur Culture Indicated? 08/10/22 Range/Units 09:30 WBC (4.5-11.0) X10^3/uL RBC (4.5-5.9) X10^6/uL Hgb (13.5-17.5) g/dL Hct (41-53) % MCV (80-100) fL MCH (26-34) PG MCHC (30-36) % RDW (11.6-14.8) % Plt Count (150-400) X10^3/uL Neut % (Auto) (50-75) % Lymph % (Auto) (25-40) % [place] % (Auto) (3-14) % Eos % (Auto) (2-4) % Baso % (Auto) (0-2) % Neut # (Auto) (5672-2811) /uL Lymph # (Auto) (8639-6747) /uL [place] # (Auto) (0-900) /uL Eos # (Auto) (0-450) /uL Baso # (Auto) (0-100) /uL Sodium (137-145) mmol/L Potassium (3.4-5.1) mmol/L Chloride (98-107) mmol/L Carbon Dioxide (22-32) mmol/L BUN (9-20) mg/dL Creatinine (0.66-1.25) mg/dL Estimated GFR (>60) mL/min BUN/Creatinine Ratio (6-22) Glucose (80-110) mg/dL Lactate (0.7-2.1) mmol/L Calcium (8.4-10.2) mg/dL Total Bilirubin (0.2-1.3) mg/dL AST (17-59) IU/L ALT (<50) IU/L Alkaline Phosphatase (38-126) U/L Total Creatine Kinase (55-170) U/L CK-MB (CK-2) CK-MB (CK-2) Rel Index Troponin I (0.01-0.034) ng/mL Total Protein (6.3-8.2) g/dL Albumin (3.5-5.0) g/dL Globulin (1.7-4.1) g/dL Albumin/Globulin Ratio (1.0-2.8) Procalcitonin (<0.5) ng/mL Urine Color Yellow Urine Appearance Clear Urine pH 5.5 (4.5-8.0) Ur Specific [place] 1.025 (1.000-1.035) Urine Protein 1+ H (Negative) Urine Glucose (UA) Negative (Negative) g/dL Urine Ketones Negative (NEGATIVE) Urine Occult Blood Trace-intact (Negative) Urine Nitrate Negative (Negative) Urine Bilirubin Negative (NEGATIVE) Urine Urobilinogen 1.0 (0.2) E.U./dL Ur Leukocyte Esterase Negative (NEGATIVE) Urine RBC 0-1/hpf (0-5/HPF) Urine WBC 0-1/hpf (0-5/HPF) Ur Squamous Epith Cells 1-5 /hpf (0-5/HPF) Urine Bacteria None seen (None) Urine Mucus 1+ H (Negative) Ur Culture Indicated? Cult not indicated MDM Narrative Medical decision making narrative: CC: 66 year old male returns as call back for positive blood cultures Complicating co-morbidities: Age, hypertension, prediabetes Data collected from: Patient Medical records reviewed: Prior notes reviewed in our EMR Differential considered, but not limited to: Bacteremia versus other Exam documented above, pertinent findings include: No obvious distress, lungs clear nonlabored breathing, heart rate regular, abdomen soft and nontender Lab Test results independently reviewed as above. Pertinent findings: No elevation of white blood cells or significant left shift, no signs of sepsis, electrolytes largely within normal, sodium has slightly tipped back to 126, however patient is asymptomatic Imaging studies independently reviewed: Chest x-ray without acute findings Consultations: Dr. Prabhakar, see details above Treatments: Rocephin 1 g Re-evaluations: Patient feeling quite well and at baseline Discussion: Patient returns for evaluation secondary to to positive blood cultures obtained during recent hospitalization. As noted above the patient has no symptoms specifically no dizziness, weakness or lightheadedness, no chest pain, cough or shortness of breath, no fever or chills. Labs are reassuring. He is given Rocephin here in the department, chest x-ray is clear, urine obtained. Patient has follow-up tomorrow for repeat sodium and an appointment on the books with his primary care provider. He has been given return precautions. Both he and understand and agree with the diagnosis and plan Disposition: see below, along with detailed discharge instructions that have been reviewed with patient as well as indications for ED re-evaluation and carol tional outpatient follow up Discharge Plan Departure Patient Disposition: Home Clinical Impression: Bacteremia, Acute hyponatremia Instructions: DI for Bacteremia-Adult Activity Restrictions/Additional Instructions: *You have been diagnosed with [bacteremia and hyponatremia] *What to do: *Please continue to take your regular medications as directed. [x ] New medication prescriptions sent to your pharmacy: [ [facility] in [place]] [ ] New medication written as a paper prescription [ ] No new medications given *Please follow up with your primary care provider in 2-3 days, call for an appointment. Let them know you were seen in the Emergency Department and that we ask that you be seen in follow up. We will electronically transmit a record of today's note if your PCP is in our system *Return to Emergency Department if you should have any new, worsening or concerning symptoms, such as [fever greater than 101 F, shaking chills, worsening pain, persistent vomiting or other bothersome symptoms] Prescriptions: New sulfamethoxazole-trimethoprim [Bactrim DS] 800-160 mg tablet 1 tab PO BID 10 Days Qty: 20 0RF No Action amlodipine 2.5 mg tablet See Rx Instructions .ROUTE .COMPLEX Qty: 180 0RF Dose Instruction: TAKE TWO TABLETS BY MOUTH DAILY Rx Instructions: TAKE TWO TABLETS BY MOUTH DAILY lisinopril 20 mg tablet See Rx Instructions .ROUTE .COMPLEX Qty: 90 0RF Dose Instruction: TAKE ONE TABLET BY MOUTH ONE TIME DAILY Rx Instructions: TAKE ONE TABLET BY MOUTH ONE TIME DAILY ibuprofen 200 mg Tablet 400 mg PO Q6H PRN (Reason: Pain (Scale Score 4-6)) Referrals: Viola Garcia MD [Primary Care Provider] - Stand Alone Forms: Patient Portal/API
[2022-08-10 08:12] VITALS: BP 172/80; PULSE 96; RESP 18; O2SAT 95; BMI 30.7
[2022-08-10 08:22] LABS: Add Manual Diff / Slide Review NO; Basophils Absolute Auto 0 /uL (0-100); Basophils Percent Auto 0.7 % (0-2); Eosinophils Absolute Auto 0 /uL (0-450); Eosinophils Percent Auto 0.3 % (2-4); Hematocrit 29.4 % (41-53); Hemoglobin 10.4 g/dL (13.5-17.5); Lymphocytes Absolute Auto 800 /uL (1100-4500); Lymphocytes Percent Auto 14.7 % (25-40); Mean Corpuscular HGB Conc 35.5 % (30-36); Mean Corpuscular Volume 87.2 fL (80-100); Monocytes Absolute Auto 200 /uL (0-900); Monocytes Percent Auto 4.4 % (3-14); Neutrophils Absolute Auto 4300 /uL (1500-7000); Neutrophils Percent Auto 79.9 % (50-75); Platelet Count 148 X10^3/uL (150-400); Red Blood Cell Count 3.37 X10^6/uL (4.5-5.9); Red Cell Distribution Width 13.7 % (11.6-14.8); White Blood Cell Count 5.4 X10^3/uL (4.5-11.0)
[2022-08-10 08:26] LABS: Lactate (Lactic Acid) 0.8 mmol/L (0.7-2.1)
[2022-08-10 08:27] LABS: Alanine Aminotransferase 87 IU/L (<50); Albumin 3.3 g/dL (3.5-5.0); Alkaline Phosphatase 59 U/L (38-126); Aspartate Aminotransferase 56 IU/L (17-59); BUN Creatinine Ratio 17.3 (6-22); Bilirubin Total 0.5 mg/dL (0.2-1.3); Blood Urea Nitrogen 13 mg/dL (9-20); Carbon Dioxide 21 mmol/L (22-32); Chloride 99 mmol/L (98-107); Creatine Kinase 69 U/L (55-170); Estimated Glomerular Filt Rate > 60 mL/min (>60); Globulin 3.2 g/dL (1.7-4.1); Glucose 126 mg/dL (80-110); HEMOLYSIS < 15 (0-50); Potassium 4.1 mmol/L (3.4-5.1); Sodium 126 mmol/L (137-145); Total Protein 6.5 g/dL (6.3-8.2)
[2022-08-10 08:33] VITALS: PULSE 89; O2SAT 94
[2022-08-10 08:35] VITALS: BP 145/67; PULSE 90; O2SAT 94
[2022-08-10] MEDS: cefTRIAXone 1,000 MG in SODIUM CHLORIDE 0.9% 100 ML 200 MG IV (08:43)
[2022-08-10 08:44] LABS: Procalcitonin 0.38 ng/mL (<0.5)
[2022-08-10 09:00] VITALS: BP 121/60; PULSE 89; O2SAT 95
[2022-08-10 09:33] LABS: Appearance Urine UA CLEAR; Bilirubin Urine UA NEGATIVE (NEGATIVE); Color Urine UA YELLOW; Glucose Urine UA NEGATIVE (Negative); Ketones Urine UA NEGATIVE (NEGATIVE); Leukocyte Esterase Urine UA NEGATIVE (NEGATIVE); Nitrite Urine UA NEGATIVE (Negative); Occult Blood Urine UA TRACE-INTACT (Negative); Protein Urine UA 1+ (Negative); Specific Gravity Urine UA 1.025 (1.000-1.035); pH Urine UA 5.5 (4.5-8.0)
[2022-08-10 09:40] LABS: Bacteria Urine None Seen; Culture Indicated Urine Cult Not Indicated; Mucus Urine 1+ (Negative); RBC Urine 0-1/HPF (0-5/HPF); Squamous Epithelial Cell Urine 1-5 /HPF (0-5/HPF); WBC Urine 0-1/HPF (0-5/HPF)
== END 2022-08-10 09:50 | disposition home or self-care (01) ==
PROVIDERS: Emergency Provider Emergency Medicine; PCP Family Medicine
DX: R78.81 Bacteremia (principal); E87.1 Hypo-osmolality and hyponatremia; I10 Essential (primary) hypertension; Z86.16 Personal history of COVID-19
CPT/HCPCS: 36415; 71045; 80053; 81001; 82550; 83605; 84145; 84484; 85025; 87040; 87077; 96365; 99284; J0696

== ENCOUNTER → 2022-08-11 08:38 | Outpatient (CLI) | payer MEDICARE, OTHER, SELFPAY ==
[2022-08-10 15:02] VITALS: BMI 31.0
[2022-08-11 09:20] LABS: BUN Creatinine Ratio 21.1 (6-22); Blood Urea Nitrogen 16 mg/dL (9-20); Calcium 8.4 mg/dL (8.4-10.2); Carbon Dioxide 22 mmol/L (22-32); Chloride 104 mmol/L (98-107); Estimated Glomerular Filt Rate > 60 mL/min (>60); Glucose 148 mg/dL (80-110); HEMOLYSIS < 15 (0-50); Potassium 4.3 mmol/L (3.4-5.1); Sodium 133 mmol/L (137-145)
== END ==
PROVIDERS: PCP Family Medicine; Referring Provider Family Medicine; Visit Provider Family Medicine
DX: E87.1 Hypo-osmolality and hyponatremia (principal)
CPT/HCPCS: 36415; 80048

== ENCOUNTER → 2022-08-16 13:15 | Outpatient (CLI) | payer MEDICARE, OTHER, SELFPAY ==
[2022-08-10 15:02] VITALS: BMI 31.0
== END ==
PROVIDERS: PCP Family Medicine; Referring Provider Family Medicine; Visit Provider Family Medicine
DX: R78.81 Bacteremia (principal)
CPT/HCPCS: 36415; 87040

== ENCOUNTER 2022-09-04 07:00 | Emergency (ER) | payer MEDICARE, OTHER, SELFPAY ==
[2022-08-10 15:02] VITALS: BMI 31.0
[2022-09-04] VITALS (16 sets, daily range): BP systolic 174–213; BP diastolic 78–99; PULSE 91–106; RESP 19–27; TEMP 36.6; O2SAT 91–96; BMI 31.9
--- NOTE | 2022-09-04 07:08 | DI.RAD.S_ITS ---
PROCEDURE: XR CHEST 1V INDICATIONS: SOB TECHNIQUE: One view of the chest was acquired. COMPARISON: Merged With [facility], CT, CT ANGIO CHEST PE PROTOCOL, 08/07/2022, 15:56. Merged With [facility], CR, XR CHEST 1V, 08/07/2022, 13:57. Merged With [facility], CR, XR CHEST 1V, 08/10/2022, 8:04. FINDINGS: Surgical changes and devices: None. Lungs and pleura: Mildly bilateral perihilar infiltrates. No pleural effusions or pneumothorax. Mediastinum: Mediastinal contours appear normal. Heart size is normal. Bones and chest wall: No suspicious bony lesions. Overlying soft tissues appear unremarkable. IMPRESSION: Mildly bilateral perihilar infiltrates compatible with mild CHF versus bilateral pneumonia. Dictated by: Dequan Castrejon M.D. on 09/04/2022 at 8:04 Approved by: Dequan Castrejon M.D. on 09/04/2022 at 8:07
[2022-09-04 07:39] LABS: Add Manual Diff / Slide Review NO; Basophils Absolute Auto 100 /uL (0-100); Basophils Percent Auto 0.7 % (0-2); Eosinophils Absolute Auto 200 /uL (0-450); Hematocrit 34.5 % (41-53); Lymphocytes Absolute Auto 2200 /uL (1100-4500); Lymphocytes Percent Auto 31.7 % (25-40); Mean Corpuscular HGB Conc 34.9 % (30-36); Mean Corpuscular Hemoglobin 31.7 PG (26-34); Mean Corpuscular Volume 90.9 fL (80-100); Monocytes Absolute Auto 400 /uL (0-900); Monocytes Percent Auto 6.2 % (3-14); Neutrophils Absolute Auto 4000 /uL (1500-7000); Neutrophils Percent Auto 58.4 % (50-75); Platelet Count 244 X10^3/uL (150-400); Red Cell Distribution Width 17.1 % (11.6-14.8); White Blood Cell Count 6.9 X10^3/uL (4.5-11.0)
--- NOTE | 2022-09-04 07:46 | ED_ITS ---
HPI - General Adult General Chief complaint: Shortness of Breath/Dyspnea Stated complaint: SOB getting worse T-3 Time Seen by Provider: 09/04/22 07:04 Source: patient and family Mode of arrival: Ambulatory History of Present Illness HPI narrative: Patient is a 67-year-old male who is here for evaluation of shortness of breath. He states that over the past 3 days he is noticed that he is having more difficulty taking a deep breath. He denies any cough. No underlying lung pathology. He states 3 nights ago he woke up at night and when he sat up in bed he noticed that he would to take more big deep breaths. He stated that today he noticed that he could not walk as far as what he normally does without getting short of breath. No chest pain. No palpitations. No headaches. No fevers. No belly pain. He does report that he has been having lower extremity swelling and swelling in his hands that has been worsening over the past couple weeks. He was recently here in the hospital where he had some changes to some of his medications to include his blood pressure medicines he noticed that his blood pressure has been high over the past couple days as well. Related Data Home Medications Medication Instructions Recorded Confirmed ibuprofen 200 mg tablet 400 mg PO Q6H PRN Pain (Scale 08/07/22 08/15/22 Score 4-6) Previous Rx's Medication Instructions Recorded amlodipine 2.5 mg tablet See Rx Instructions .Route 08/04/22 .COMPLEX #180 tabs lisinopril 20 mg tablet See Rx Instructions .Route 08/04/22 .COMPLEX #90 tabs furosemide 20 mg tablet (Lasix) 20 mg PO DAILY #30 tabs 09/04/22 Allergies Allergy/AdvReac Type Severity Reaction Status Date / Time No Known Drug Allergies Allergy Verified 08/15/22 14:33 Review of Systems Constitutional Constitutional: Reports system reviewed and no additional complaints, except as documented Cardiovascular Cardiovascular: Reports system reviewed and no additional complaints, except as documented Respiratory Respiratory: Reports system reviewed and no additional complaints, except as documented Gastrointestinal Gastrointestinal: Reports system reviewed and no additional complaints, except as documented Integumentary/Breasts Skin/Breast: Reports system reviewed and no additional complaints, except as documented Neurologic Neurologic: Reports system reviewed and no additional complaints, except as d ocumented Hematologic/Lymphatic On Anticoagulants: No Patient History Medical History ADHD Essential hypertension (03/29/16) Hyponatremia (04/05/16) Pre-diabetes Thoracic aortic aneurysm without rupture (04/05/16) Surgical History Status post cholecystectomy (08/19/14) Status post hernia repair Social History household members: spouse education level: other occupational status: other 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 Gym: Cardio/muscle. Smoking Status: Former smoker alcohol intake frequency: 0-2 drinks per day Alcohol type: hard liquor Substance Use Type: does not use Exam Initial Vital Signs Initial Vital Signs: Vital Signs Temperature 97.9 F 09/04/22 07:10 Pulse Rate 102 H 09/04/22 07:10 Respiratory Rate 20 09/04/22 07:10 Blood Pressure 213/98 H 09/04/22 07:10 Pulse Oximetry 95 09/04/22 07:10 Oxygen Delivery Method Room Air 09/04/22 07:10 HENMT Head: normal to inspection and normocephalic Resp Effort & Inspection: normal respiratory effort Auscultation: clear to auscultation bilaterally Cardio Rate: tachycardic Rhythm: regular rhythm GI Inspection: normal to inspection Skin General: no rashes or lesions noted Neuro General: patient alert, patient awake, patient oriented x3 and moves all extremities Speech: speech normal Extrem General: normal to inspection and capillary refill normal Course Orders Ordered: ED Orders 09/04/22 07:08 XR chest 1V Stat EKG-12 Lead Stat 09/04/22 07:25 Complete Blood Count AUTO DIFF Stat Comprehensive Metabolic Panel Stat D Dimer Stat Lipase Stat NT-proBNP (BNP-Adult 18+) Stat Troponin & CK Cardiac Panel Stat 09/04/22 08:10 CT angio chest PE protocol Stat Vital Signs Vital signs: Vital Signs - 8 hr 09/04/22 07:10 09/04/22 07:12 09/04/22 07:12 Temperature 97.9 F Pulse Rate 102 H Respiratory Rate 20 Blood Pressure 213/98 H 213/98 H Pulse Oximetry 95 94 Oxygen Delivery Method Room Air 09/04/22 07:15 09/04/22 07:15 09/04/22 07:30 Temperature Pulse Rate 104 H Respiratory Rate 24 Blood Pressure 205/97 H 195/88 H Pulse Oximetry 95 Oxygen Delivery Method 09/04/22 07:30 09/04/22 07:45 09/04/22 07:45 Temperature Pulse Rate 96 H 99 H Respiratory Rate 27 H 23 Blood Pressure 196/80 H Pulse Oximetry 94 94 Oxygen Delivery Method 09/04/22 08:00 09/04/22 08:00 09/04/22 08:15 Temperature Pulse Rate 94 H Respiratory Rate 19 Blood Pressure 176/78 H 174/79 H Pulse Oximetry 93 Oxygen Delivery Method 09/04/22 08:15 09/04/22 08:34 09/04/22 09:00 Temperature Pulse Rate 96 H 106 H 92 H Respiratory Rate 20 23 Blood Pressure Pulse Oximetry 93 95 96 Oxygen Delivery Method 09/04/22 09:30 09/04/22 09:38 09/04/22 09:38 Temperature Pulse Rate 91 H 106 H Respiratory Rate 21 24 Blood Pressure 188/88 H Pulse Oximetry 94 95 Oxygen Delivery Method Room Air Room Air 09/04/22 09:44 09/04/22 09:44 09/04/22 09:45 Temperature Pulse Rate 101 H Respiratory Rate Blood Pressure 211/99 H 188/83 H Pulse Oximetry 95 Oxygen Delivery Method Room Air 09/04/22 09:45 09/04/22 10:00 09/04/22 10:01 Temperature Pulse Rate 100 H 96 H Respiratory Rate 22 24 Blood Pressure 197/89 H Pulse Oximetry 95 92 Oxygen Delivery Method 09/04/22 10:01 Temperature Pulse Rate 101 H Respiratory Rate 24 Blood Pressure Pulse Oximetry 92 Oxygen Delivery Method Room Air Medical Decision Making Medical Records Medical records reviewed: Yes I reviewed the patient's medical records. Lab Data Lab results reviewed: Yes I reviewed the patient's lab results. 09/04/22 07:25 09/04/22 07:25 Labs: Lab Results 09/04/22 09/04/22 09/04/22 Range/Units 07:25 07:25 07:25 WBC 6.9 (4.5-11.0) X10^3/uL RBC 3.80 L (4.5-5.9) X10^6/uL Hgb 12.0 L (13.5-17.5) g/dL Hct 34.5 L (41-53) % MCV 90.9 (80-100) fL MCH 31.7 (26-34) PG MCHC 34.9 (30-36) % RDW 17.1 H (11.6-14.8) % Plt Count 244 (150-400) X10^3/uL Neut % (Auto) 58.4 (50-75) % Lymph % (Auto) 31.7 (25-40) % Starr % (Auto) 6.2 (3-14) % Eos % (Auto) 3.0 (2-4) % Baso % (Auto) 0.7 (0-2) % Neut # (Auto) 4000 (4743-8757) /uL Lymph # (Auto) 2200 (1341-5221) /uL Starr # (Auto) 400 (0-900) /uL Eos # (Auto) 200 (0-450) /uL Baso # (Auto) 100 (0-100) /uL D-Dimer 1610 H (<500) ng/ml Sodium 134 L (137-145) mmol/L Potassium 4.0 (3.4-5.1) mmol/L Chloride 104 (98-107) mmol/L Carbon Dioxide 22 (22-32) mmol/L BUN 12 (9-20) mg/dL Creatinine 0.81 (0.66-1.25) mg/dL Estimated GFR > 60 (>60) mL/min BUN/Creatinine Ratio 14.8 (6-22) Glucose 136 H (80-110) mg/dL Calcium 9.3 (8.4-10.2) mg/dL Total Bilirubin 0.6 (0.2-1.3) mg/dL AST 32 (17-59) IU/L ALT 37 (<50) IU/L Alkaline Phosphatase 71 (38-126) U/L Total Creatine Kinase 133 (55-170) U/L Troponin I 0.034 (0.01-0.034) ng/mL NT-Pro-B Natriuret Pep 2390 H (<125) pg/mL Total Protein 7.8 (6.3-8.2) g/dL Albumin 4.2 (3.5-5.0) g/dL Globulin 3.6 (1.7-4.1) g/dL Albumin/Globulin Ratio 1.2 (1.0-2.8) Lipase 209 (23-300) U/L Imaging Data Chest x-ray: Radiologist's Impression: PROCEDURE:? XR CHEST 1V ? INDICATIONS:? SOB ? TECHNIQUE:? One view of the chest was acquired.? ? COMPARISON:? [facility], CT, CT ANGIO CHEST PE PROTOCOL, 08/07/2022, 15:56.? [facility], CR, XR CHEST 1V, 08/07/2022, 13:57.? [facility], CR, XR CHEST 1V, 08/10/2022, 8:04. ? FINDINGS:? ? Surgical changes and devices:? None.? ? Lungs and pleura:? Mildly bilateral perihilar infiltrates.? No pleural effusions or pneumothorax.? ? Mediastinum:? Mediastinal contours appear normal.? Heart size is normal.? ? Bones and chest wall:? No suspicious bony lesions.? Overlying soft tissues appear unremarkable.? ? IMPRESSION:? Mildly bilateral perihilar infiltrates compatible with mild CHF versus bilateral pneumonia. CT scan - chest: Radiologist's Impression: PROCEDURE:? CT ANGIO CHEST PE PROTOCOL ? INDICATIONS:? Chest pain, shortness of breath, tachycardia ? TECHNIQUE:? After the administration of intravenous contrast, 2 mm thick sections acquired from the pulmonary apices to the posterior costophrenic angles.? 3-dimensional maximum intensity projection (MIP) coronal and sagittal reformats were then acquired through the thorax.? For radiation dose reduction, the following was used:? automated exposure control, adjustment of mA and/or kV according to patient size.? ? COMPARISON:? [facility], CT, CT ANGIO CHEST PE PROTOCOL, 08/07/2022, 15:56. ? FINDINGS:? Image quality:? Excellent.? ? Pulmonary arteries:? Pulmonary arteries are normal in size, and demonstrate no intraluminal filling defects to suggest central pulmonary embolism.? ? Lungs and pleura:? Small right greater than left bilateral pleural effusion is seen with adjacent ill-defined airspace opacities in posterior aspect of bilateral lower lobes more prominent on the right side.? Mild hazy ground-glass opacity in bilateral lung linder are noted.? Subtle atelectasis scattered in periphery of bilateral lung linder are seen.? 3 mm calcified granuloma in right middle lobe is seen.? 5 mm part solid nodular density in anterolateral right middle lobe is also noted series 5, image 155. 5 mm solid nodule is also seen in right upper lobe series 5, image 88.? Central and peripheral airways are patent.? ? Mediastinum:? Heart size is normal, without pericardial effusion.? Enlarged mediastinal lymph nodes are seen measures up to 1.7 cm in size in right paratracheal space series 4, image 56. No gross hilar lymphadenopathy by size criteria.? Mild atherosclerotic calcifications in coronary vessels and thoracic aorta is seen.? Ascending thoracic aortic aneurysm is seen measures up to 4.5 cm in largest AP diameter.? No gross dissection.? Descending thoracic aorta is normal in size..? Esophagus is normal in caliber, without hiatal hernia.? ? Bones and chest wall:? No suspicious bony lesions.? Ribs and thoracic spine appear intact throughout.? Thyroid gland is within normal limits.? No axillary or supr aclavicular adenopathy.? ? Abdomen:? Visualized upper abdominal solid organs appear normal in the early arterial phase of enhancement.? Gallbladder is surgically absent.? ? IMPRESSION:? ? 1. No evidence of pulmonary emboli.? Ascending thoracic aortic aneurysm as above.? No evidence of aortic dissection. ? 2. Right greater than left bilateral pleural effusion with small infiltrate/atelectasis in posterior aspect of bilateral lower lobes more prominent on the right side.? Hazy ground-glass opacity in bilateral lung linder concerning for mild pulmonary edema.? No pneumothorax. ? 3. Nonspecific sub cm nodule seen in right middle lobe and right upper lobe as above.? Consider CT chest follow-up in 6-12 months for evaluation of stability. ? 4. Enlarged mediastinal lymph nodes concerning for reactive inflammatory nodes. ECG Data Attestation: I personally reviewed and interpreted this ECG as follows: Interpretation: Sinus rhythm Ventricular rate 100 Occasional PACs QTC [address] T wave changes MDM Narrative Medical decision making narrative: CT scan shows no signs of pulmonary embolism. Low suspicion for pneumonia. He has been off of his blood pressure medicines since he was last admitted to the hospital. He is also been increasing his salt intake because he was hyponatremic during the last visit. I suspect that this is why his blood pressure is elevated. Most likely why he is retaining fluid as well. He is no history of heart failure. The plan will be is to start him on furosemide. We discussed this. He has a follow-up already scheduled in approximately 10 days with his primary doctor. He will continue to take his blood pressure at home. He will talk with his primary doctor about further workup. Patient was not hypoxic upon ambulation. No need for admission to the hospital. He was given r eturn precautions. He expressed understanding and agreement. Discharge Plan Departure Patient Disposition: Home Clinical Impression: Pulmonary edema Instructions: Edema Activity Restrictions/Additional Instructions: I do recommend that you take the Lasix/furosemide as directed. Keep your sche duled appointment with your primary doctor that is already scheduled in approximately 10 days. Return to the emergency department for new or worsening symptoms. Prescriptions: New furosemide [Lasix] 20 mg tablet 20 mg PO DAILY Qty: 30 0RF No Action amlodipine 2.5 mg tablet See Rx Instructions .ROUTE .COMPLEX Qty: 180 0RF Dose Instruction: TAKE TWO TABLETS BY MOUTH DAILY Rx Instructions: TAKE TWO TABLETS BY MOUTH DAILY lisinopril 20 mg tablet See Rx Instructions .ROUTE .COMPLEX Qty: 90 0RF Dose Instruction: TAKE ONE TABLET BY MOUTH ONE TIME DAILY Rx Instructions: TAKE ONE TABLET BY MOUTH ONE TIME DAILY ibuprofen 200 mg Tablet 400 mg PO Q6H PRN (Reason: Pain (Scale Score 4-6)) Referrals: Viola Garcia MD [Primary Care Provider] - Stand Alone Forms: Patient Portal/API
[2022-09-04 07:47] LABS: Alanine Aminotransferase 37 IU/L (<50); Albumin 4.2 g/dL (3.5-5.0); Albumin Globulin Ratio 1.2 (1.0-2.8); Alkaline Phosphatase 71 U/L (38-126); Aspartate Aminotransferase 32 IU/L (17-59); BUN Creatinine Ratio 14.8 (6-22); Bilirubin Total 0.6 mg/dL (0.2-1.3); Blood Urea Nitrogen 12 mg/dL (9-20); Calcium 9.3 mg/dL (8.4-10.2); Carbon Dioxide 22 mmol/L (22-32); Chloride 104 mmol/L (98-107); Creatine Kinase 133 U/L (55-170); Estimated Glomerular Filt Rate > 60 mL/min (>60); Globulin 3.6 g/dL (1.7-4.1); Glucose 136 mg/dL (80-110); HEMOLYSIS < 15 (0-50); Lipase 209 U/L (23-300); Sodium 134 mmol/L (137-145); Total Protein 7.8 g/dL (6.3-8.2)
[2022-09-04 07:59] LABS: NT-proBNP (BNP-Adult 18+) 2390 pg/mL (<125); Troponin I 0.034 ng/mL (0.01-0.034)
--- NOTE | 2022-09-04 08:00 | PC.NURSE ---
Patient had covid last month and has had shortness of breath. The past 3 days has increased
[2022-09-04 08:01] LABS: D Dimer 1610 ng/ml (<500)
--- NOTE | 2022-09-04 08:10 | DI.CT.S_ITS ---
PROCEDURE: CT ANGIO CHEST PE PROTOCOL INDICATIONS: Chest pain, shortness of breath, tachycardia TECHNIQUE: After the administration of intravenous contrast, 2 mm thick sections acquired from the pulmonary apices to the posterior costophrenic angles. 3-dimensional maximum intensity projection (MIP) coronal and sagittal reformats were then acquired through the thorax. For radiation dose reduction, the following was used: automated exposure control, adjustment of mA and/or kV according to patient size. COMPARISON: [facility], CT, CT ANGIO CHEST PE PROTOCOL, 08/07/2022, 15:56. FINDINGS: Image quality: Excellent. Pulmonary arteries: Pulmonary arteries are normal in size, and demonstrate no intraluminal filling defects to suggest central pulmonary embolism. Lungs and pleura: Small right greater than left bilateral pleural effusion is seen with adjacent ill-defined airspace opacities in posterior aspect of bilateral lower lobes more prominent on the right side. Mild hazy ground-glass opacity in bilateral lung linder are noted. Subtle atelectasis scattered in periphery of bilateral lung linder are seen. 3 mm calcified granuloma in right middle lobe is seen. 5 mm part solid nodular density in anterolateral right middle lobe is also noted series 5, image 155. 5 mm solid nodule is also seen in right upper lobe series 5, image 88. Central and peripheral airways are patent. Mediastinum: Heart size is normal, without pericardial effusion. Enlarged mediastinal lymph nodes are seen measures up to 1.7 cm in size in right paratracheal space series 4, image 56. No gross hilar lymphadenopathy by size criteria. Mild atherosclerotic calcifications in coronary vessels and thoracic aorta is seen. Ascending thoracic aortic aneurysm is seen measures up to 4.5 cm in largest AP diameter. No gross dissection. Descending thoracic aorta is normal in size.. Esophagus is normal in caliber, without hiatal hernia. Bones and chest wall: No suspicious bony lesions. Ribs and thoracic spine appear intact throughout. Thyroid gland is within normal limits. No axillary or supraclavicular adenopathy. Abdomen: Visualized upper abdominal solid organs appear normal in the early arterial phase of enhancement. Gallbladder is surgically absent. IMPRESSION: 1. No evidence of pulmonary emboli. Ascending thoracic aortic aneurysm as above. No evidence of aortic dissection. 2. Right greater than left bilateral pleural effusion with small infiltrate/atelectasis in posterior aspect of bilateral lower lobes more prominent on the right side. Hazy ground-glass opacity in bilateral lung linder concerning for mild pulmonary edema. No pneumothorax. 3. Nonspecific sub cm nodule seen in right middle lobe and right upper lobe as above. Consider CT chest follow-up in 6-12 months for evaluation of stability. 4. Enlarged mediastinal lymph nodes concerning for reactive inflammatory nodes. Dictated by: Abelardo Felder M.D. on 09/04/2022 at 8:52 Approved by: Abelardo Felder M.D. on 09/04/2022 at 9:01
== END 2022-09-04 10:22 | disposition home or self-care (01) ==
PROVIDERS: Emergency Provider Emergency Medicine; PCP Family Medicine
DX: J81.1 Chronic pulmonary edema (principal); R07.9 Chest pain, unspecified
CPT/HCPCS: 36415; 71045; 71275; 80053; 82550; 83690; 83880; 84484; 85025; 85379; 93005; 93010; 99284; Q9967

== ENCOUNTER → 2022-09-18 11:20 | Outpatient (CLI) | payer MEDICARE, OTHER, SELFPAY ==
[2022-08-10 15:02] VITALS: BMI 31.0
[2022-09-18 12:36] LABS: Alanine Aminotransferase 41 IU/L (<50); Albumin 4.1 g/dL (3.5-5.0); Albumin Globulin Ratio 1.2 (1.0-2.8); Alkaline Phosphatase 66 U/L (38-126); Aspartate Aminotransferase 38 IU/L (17-59); BUN Creatinine Ratio 15.1 (6-22); Bilirubin Total 0.7 mg/dL (0.2-1.3); Blood Urea Nitrogen 14 mg/dL (9-20); Calcium 9.3 mg/dL (8.4-10.2); Carbon Dioxide 27 mmol/L (22-32); Chloride 101 mmol/L (98-107); Cholesterol 186 mg/dL (140-199); Estimated Glomerular Filt Rate > 60 mL/min (>60); Globulin 3.4 g/dL (1.7-4.1); Glucose 121 mg/dL (80-110); HDL Cholesterol 48 mg/dL (40-60); HEMOLYSIS < 15 (0-50); LDL Cholesterol Calculated 112 mg/dL (<100); Potassium 4.1 mmol/L (3.4-5.1); Sodium 135 mmol/L (137-145); Total Protein 7.5 g/dL (6.3-8.2); Triglycerides 130 mg/dL (35-150)
[2022-09-18 17:02] LABS: Creatinine Urine Random 24.1 mg/dL
[2022-09-18 17:10] LABS: Microalbumin Urine Random 0.7 mg/dL (0-1.6)
[2022-09-19 03:21] LABS: x Labcorp Estim. Avg Glu (eAG) 120 mg/dL (.); x Labcorp Hemoglobin A1c 5.8 % (4.8-5.6)
== END ==
PROVIDERS: PCP Family Medicine; Referring Provider Family Medicine; Visit Provider Family Medicine
DX: I10 Essential (primary) hypertension; R73.03 Prediabetes
CPT/HCPCS: 36415; 80053; 80061; 82043; 82570; 83036

== ENCOUNTER → 2022-10-05 07:53 | Outpatient (CLI) | payer MEDICARE, OTHER, SELFPAY ==
[2022-08-10 15:02] VITALS: BMI 31.0
--- NOTE | 2022-10-05 07:56 | DI.ECHO.S_ITS ---
[facility]---------+ [facility] +---------+ : : [address] : : : : [id number] : : : : Phone: [phone] Echocardiogram Report + + :Name: THOMAS SERVIN Study Date: 10/05/2022 Height: 71 in : :[facility] ReadingLocation: Weight: 218 lb : : Gender: Male BSA: 2.2 m2 : :: 1955 Age: 67 yrs BP: 176/78 mmHg: :Reason For Study: Shortness of Breath Pulmonary Edema : :Ordering Physician: AILEEN, : :SHARAD Performed By: Ashley Story : :Referring: SHARAD GALLAGHER : + + Interpretation Summary 1) Normal left ventricular thickness, size, wall motion, and systolic function (EF 55-60%). 2) Grossly, normal right ventricular size and function. 3) There is probable moderate to severe aortic regurgitation. Since this was a limited echo, very few images were obtained. 4) The ascending aorta is moderately enlarged at 4.6cm. 5) No prior Echo available for comparison. Recommend repeat Echo in one year for serial monitoring, sooner if clinically indicated. Procedure: A two-dimensional transthoracic echocardiogram with color flow and Doppler was performed in limited views only. The study quality was technically adequate. There is no prior echocardiogram noted for this patient. The patient was in normal sinus rhythm during the exam. Left Ventricle: The left ventricle is normal in size and wall thickness. The ejection fraction is estimated to be 55-60%. Left ventricular systolic function appears normal without focal wall motion abnormalities. Right Ventricle: The right ventricle grossly appears normal in size with probable normal systolic function. Mitral Valve: The mitral valve is normal. There is trace mitral regurgitation. Aortic Valve: The aortic valve is not well visualized. There is moderate to severe aortic regurgitation. Tricuspid Valve: The tricuspid valve is normal. No tricuspid regurgitation. Pulmonary artery pressures cannot be estimated because of the lack of a measurable TR jet velocity. Great Vessels: The ascending aorta is moderately enlarged. The inferior vena cava was not well visualized. Pericardium/ Pleura There is no pericardial effusion. There is no pleural effusion. MMode/2D Measurements & Calculations asc Aorta Diam: 4.6 cm LVLs ap4: 7.6 cm LVLd ap2: 8.8 cm LVLs ap2: 7.0 cm Doppler Measurements & Calculations Ao V2 max: 191.0 cm/sec LVOT Max Josué: 176.0 cm/sec Ao V2 mean: 136.0 cm/sec LV V1 max P.4 mmHg Ao max P.0 mmHg LV V1 VTI: 32.3 cm Ao mean P.0 mmHg sev ratio: 0.82 Ao V2 VTI: 39.4 cm AV VR_phl: 0.92 Reading Physician:04:46 PM
--- NOTE | 2022-10-05 21:52 | DI.NM.S_ITS ---
DATE OF SERVICE: 10/05/2022 PROCEDURE: Exercise stress test. INDICATIONS: Shortness of breath. CARDIAC STRESS: Patient underwent exercise stress test under the supervision of an attending staff. Patient walked on Skyler protocol for 5 minutes and 41 seconds and achieved maximum heart rate of 151, which was 99% of target heart rate. Peak blood pressure 226/80, suggestive of hypertensive blood pressure response. Achieved 7 METs of workload. JORGE positive 21%. Baseline rhythm was sinus. During stress, no convincing ischemic changes seen. No significant arrhythmias seen. Patient had shortness of breath. No chest pain. Oxygen saturation at peak exercise 97%. CONCLUSION: Exercise stress test is negative for inducible ischemia. Hypertensive blood pressure response. Peak blood pressure 226/80 mmHg. No ischemic electrocardiographic changes. No significant arrhythmias. No chest pain. The patient had shortness of breath. Diminished exercise tolerance. Oxygen saturation at peak exercise 97%. Overall, low-risk exercise stress test. Theo Kovacs - CANINE SERVICE TEACHER/mau/ec doc#: [id number]/job#: [id number] dd: 10/05/2022 17:04:00 dt: 10/05/2022 21:29:00 DICTATING /COPIES TO: Ziggy Avila MD COPIES MNE: ELLIOT;
== END ==
PROVIDERS: PCP Family Medicine; Referring Provider Family Medicine; Visit Provider Family Medicine
DX: J81.1 Chronic pulmonary edema (principal); I35.1 Nonrheumatic aortic (valve) insufficiency; I77.89 Other specified disorders of arteries and arterioles; R06.02 Shortness of breath
CPT/HCPCS: 93017; 93307

== ENCOUNTER 2022-10-07 09:15 | Emergency (ER) | payer MEDICARE, OTHER, SELFPAY ==
[2022-08-10 15:02] VITALS: BMI 31.0
[2022-10-07] VITALS (11 sets, daily range): BP systolic 147–214; BP diastolic 56–94; PULSE 72–101; RESP 18–25; TEMP 36.6; O2SAT 92–99; BMI 30.4
--- NOTE | 2022-10-07 09:19 | DI.RAD.S_ITS ---
PROCEDURE: XR CHEST 1V INDICATIONS: SOB TECHNIQUE: One view of the chest was acquired. COMPARISON: [facility], CR, XR CHEST 1V, 09/04/2022, 7:11. FINDINGS: Surgical changes and devices: None. Lungs and pleura: Mild bilateral perihilar infiltrates. Otherwise lungs are clear. No pleural effusions or pneumothorax. Mediastinum: Mediastinal contours appear normal. Heart size is enlarged. Bones and chest wall: No suspicious bony lesions. Overlying soft tissues appear unremarkable. IMPRESSION: Mild bilateral perihilar infiltrates consistent with mild CHF, similar to the prior study on 09/04/2022. Dictated by: Vamsi Stoner M.D. on 10/07/2022 at 10:07 Approved by: Vamsi Stoner M.D. on 10/07/2022 at 10:07
[2022-10-07 09:42] LABS: Add Manual Diff / Slide Review NO; Basophils Absolute Auto 0 /uL (0-100); Basophils Percent Auto 0.6 % (0-2); Eosinophils Absolute Auto 300 /uL (0-450); Eosinophils Percent Auto 3.4 % (2-4); Hematocrit 39.1 % (41-53); Hemoglobin 13.6 g/dL (13.5-17.5); Lymphocytes Absolute Auto 3100 /uL (1100-4500); Lymphocytes Percent Auto 40.7 % (25-40); Mean Corpuscular HGB Conc 34.7 % (30-36); Mean Corpuscular Hemoglobin 32.3 PG (26-34); Mean Corpuscular Volume 93.1 fL (80-100); Monocytes Absolute Auto 300 /uL (0-900); Monocytes Percent Auto 4.2 % (3-14); Neutrophils Absolute Auto 3900 /uL (1500-7000); Neutrophils Percent Auto 51.1 % (50-75); Platelet Count 201 X10^3/uL (150-400); Red Cell Distribution Width 15.5 % (11.6-14.8); White Blood Cell Count 7.6 X10^3/uL (4.5-11.0)
[2022-10-07 09:54] LABS: Alanine Aminotransferase 35 IU/L (<50); Albumin 4.1 g/dL (3.5-5.0); Albumin Globulin Ratio 1.3 (1.0-2.8); Alkaline Phosphatase 63 U/L (38-126); Aspartate Aminotransferase 34 IU/L (17-59); BUN Creatinine Ratio 16.7 (6-22); Bilirubin Total 0.3 mg/dL (0.2-1.3); Blood Urea Nitrogen 14 mg/dL (9-20); Carbon Dioxide 19 mmol/L (22-32); Chloride 108 mmol/L (98-107); Creatine Kinase 191 U/L (55-170); Estimated Glomerular Filt Rate > 60 mL/min (>60); Globulin 3.1 g/dL (1.7-4.1); Glucose 188 mg/dL (80-110); HEMOLYSIS < 15 (0-50); Lipase 307 U/L (23-300); Magnesium 1.8 mg/dL (1.6-2.3); Potassium 4.1 mmol/L (3.4-5.1); Sodium 135 mmol/L (137-145); Total Protein 7.2 g/dL (6.3-8.2)
[2022-10-07] MEDS: FUROSEMIDE 60 MG in SODIUM CHLORIDE 0.9% 50 ML 112 MG IV (09:57)
--- NOTE | 2022-10-07 09:59 | ED.GENADULT ---
HPI - General Adult General Chief complaint: Shortness of Breath/Dyspnea Stated complaint: breathing problems/fainting Time Seen by Provider: 10/07/22 09:19 Source: patient and family Mode of arrival: Ambulatory History of Present Illness HPI narrative: Patient is a 67-year-old male. I evaluated him here in the emergency department approximately 1 month ago. Had a cardiac workup at that time and a CT scan at that time. Was discharged home with diuretics secondary to we thought was pulmonary edema. Since that time he is had a stress test. He does not have the results of this. He is also had an echocardiogram which did not show signs of heart failure but did show aortic valve pathology. He has been on the diuretics until Sunday of this week. He felt like after starting the diuretics 1 month ago his breathing actually improved and was steady until this morning when he states that he feels today like what he did 1 month ago. He ran out of the diuretics on Sunday of this week. He feels like his abdomen is distended. He does have a slight cough but it is nonproductive. No fevers. No chest pain. No lower extremity swelling. Related Data Home Medications Medication Instructions Recorded Confirmed ibuprofen 200 mg tablet 400 mg PO Q6H PRN Pain (Scale 08/07/22 09/13/22 Score 4-6) Previous Rx's Medication Instructions Recorded amlodipine 2.5 mg tablet See Rx Instructions .Route 08/04/22 .COMPLEX #180 tabs lisinopril 20 mg tablet See Rx Instructions .Route 08/04/22 .COMPLEX #90 tabs furosemide 20 mg tablet (Lasix) 20 mg PO DAILY #30 tabs 09/04/22 furosemide 20 mg tablet (Lasix) 20 mg PO DAILY #30 tabs 10/07/22 Allergies Allergy/AdvReac Type Severity Reaction Status Date / Time No Known Drug Allergies Allergy Verified 09/13/22 13:34 Review of Systems Constitutional Constitutional: Reports system reviewed and no additional complaints, except as documented Cardiovascular Cardiovascular: Reports system reviewed and no additional complaints, except as documented Respiratory Respiratory: Reports system reviewed and no additional complaints, except as documented Gastrointestinal Gastrointestinal: Reports system reviewed and no additional complaints, except as documented Musculoskeletal Musculoskeletal: Reports system reviewed and no additional complaints, except as documented Integumentary/Breasts Skin/Breast: Reports system reviewed and no additional complaints, except as documented Hematologic/Lymphatic On Anticoagulants: No Patient History Medical History ADHD Essential hypertension (03/29/16) Hyponatremia (04/05/16) Pre-diabetes Thoracic aortic aneurysm without rupture (04/05/16) Surgical History Status post cholecystectomy (08/19/14) Status post hernia repair Social History household members: spouse education level: other occupational status: other 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 Gym: Cardio/muscle. Smoking Status: Former smoker tobacco type: cigarettes and cigars alcohol intake frequency: 0-2 drinks per day Alcohol type: hard liquor Substance Use Type: does not use Exam Initial Vital Signs Initial Vital Signs: Vital Signs Pulse Rate 101 H 10/07/22 09:19 Pulse Oximetry 99 10/07/22 09:19 HENMT Head: normal to inspection and normocephalic Resp Effort & Inspection: normal respiratory effort Auscultation: clear to auscultation bilaterally Cardio Rate: regular rate Rhythm: regular rhythm GI Inspection: normal to inspection and non-distended Palpation: soft and No tender Neuro General: patient alert, patient awake and moves all extremities Extrem General: normal to inspection and capillary refill normal Course Orders Ordered: ED Orders 10/07/22 09:19 XR chest 1V Stat 10/07/22 09:20 EKG-12 Lead Stat 10/07/22 09:34 Complete Blood Count AUTO DIFF Stat Comprehensive Metabolic Panel Stat Lipase Stat Magnesium Stat NT-proBNP (BNP-Adult 18+) Stat Troponin & CK Cardiac Panel Stat Discontinued Medications Furosemide 60 mg/ Sodium (Chloride) 56 mls @ 112 mls/hr IV NOW ONE Stop: 10/07/22 09:52 Last Infusion: 10/07/22 10:31 Dose: 0 mls/hr Documented By: Admin: 10/07/22 09:57 Dose: 112 mls/hr Documented By: NEIL Vital Signs Vital signs: Vital Signs - 8 hr 10/07/22 09:26 10/07/22 09:19 10/07/22 09:20 Temperature 97.8 F Pulse Rate 90 101 H Respiratory Rate 20 Blood Pressure 214/94 H 214/94 H Pulse Oximetry 98 99 Oxygen Delivery Method Room Air 10/07/22 09:20 10/07/22 09:30 10/07/22 09:30 Temperature Pulse Rate 99 H 84 Respiratory Rate 23 Blood Pressure 202/84 H Pulse Oximetry 97 96 Oxygen Delivery Method 10/07/22 10:00 10/07/22 10:00 Temperature Pulse Rate 81 Respiratory Rate 23 Blood Pressure 197/79 H Pulse Oximetry 94 Oxygen Delivery Method Medical Decision Making Lab Data Lab results reviewed: Yes I reviewed the patient's lab results. 10/07/22 09:34 10/07/22 09:34 Labs: Lab Results 10/07/22 10/07/22 Range/Units 09:34 09:34 WBC 7.6 (4.5-11.0) X10^3/uL RBC 4.20 L (4.5-5.9) X10^6/uL Hgb 13.6 (13.5-17.5) g/dL Hct 39.1 L (41-53) % MCV 93.1 (80-100) fL MCH 32.3 (26-34) PG MCHC 34.7 (30-36) % RDW 15.5 H (11.6-14.8) % Plt Count 201 (150-400) X10^3/uL Neut % (Auto) 51.1 (50-75) % Lymph % (Auto) 40.7 H (25-40) % [place] % (Auto) 4.2 (3-14) % Eos % (Auto) 3.4 (2-4) % Baso % (Auto) 0.6 (0-2) % Neut # (Auto) 3900 (2501-2714) /uL Lymph # (Auto) 3100 (2085-9305) /uL [place] # (Auto) 300 (0-900) /uL Eos # (Auto) 300 (0-450) /uL Baso # (Auto) 0 (0-100) /uL Sodium 135 L (137-145) mmol/L Potassium 4.1 (3.4-5.1) mmol/L Chloride 108 H (98-107) mmol/L Carbon Dioxide 19 L (22-32) mmol/L BUN 14 (9-20) mg/dL Creatinine 0.84 (0.66-1.25) mg/dL Estimated GFR > 60 (>60) mL/min BUN/Creatinine Ratio 16.7 (6-22) Glucose 188 H (80-110) mg/dL Calcium 9.0 (8.4-10.2) mg/dL Magnesium 1.8 (1.6-2.3) mg/dL Total Bilirubin 0.3 (0.2-1.3) mg/dL AST 34 (17-59) IU/L ALT 35 (<50) IU/L Alkaline Phosphatase 63 (38-126) U/L Total Creatine Kinase 191 H (55-170) U/L Troponin I 0.023 (0.01-0.034) ng/mL NT-Pro-B Natriuret Pep 2450 H (<125) pg/mL Total Protein 7.2 (6.3-8.2) g/dL Albumin 4.1 (3.5-5.0) g/dL Globulin 3.1 (1.7-4.1) g/dL Albumin/Globulin Ratio 1.3 (1.0-2.8) Lipase 307 H (23-300) U/L Urine Dip Bedside Urine Glucose Negative Bedside Urine Bilirubin - Negative Bedside Urine Ketone - Negative Urine Specific [place] 1.010 Bedside Urine Occult Blood - Negative Bedside Urine pH 5.5 Bedside Urine Protein - Negative Bedside Urine Urobilinogen - Negative Bedside Urine Nitrite - Negative Bedside Urine Leukocytes - Negative Esterase Point of care testing: Urine Dip Bedside Urine Glucose Negative Bedside Urine Bilirubin - Negative Bedside Urine Ketone - Negative Urine Specific [place] 1.010 Bedside Urine Occult Blood - Negative Bedside Urine pH 5.5 Bedside Urine Protein - Negative Bedside Urine Urobilinogen - Negative Bedside Urine Nitrite - Negative Bedside Urine Leukocytes - Negative Esterase Imaging Data Chest x-ray: Radiologist's Impression: PROCEDURE:? XR CHEST 1V ? INDICATIONS:? SOB ? TECHNIQUE:? One view of the chest was acquired.? ? COMPARISON:? [facility], CR, XR CHEST 1V, 09/04/2022, 7:11. ? FINDINGS:? ? Surgical changes and devices:? None.? ? Lungs and pleura:? Mild bilateral perihilar infiltrates.? Otherwise lungs are clear.? No pleural effusions or pneumothorax.? ? Mediastinum:? Mediastinal contours appear normal.? Heart size is enlarged.? ? Bones and chest wall:? No suspicious bony lesions.? Overlying soft tissues appear unremarkable.? ? IMPRESSION:? Mild bilateral perihilar infiltrates consistent with mild CHF, similar to the prior study on 09/04/2022. ECG Data Attestation: I personally reviewed and interpreted this ECG as follows: Prior ECG tracings: available for review Interpretation: Sinus rhythm Ventricular rate 86 Normal axis Normal QRS Nonspecific ST T wave changes Very similar to EKG 1 month ago MDM Narrative Medical decision making narrative: Patient has no chest pain. He is not hypoxic. Was hypertensive upon arrival but this improved after diuresis. Patient ran out of his diuretics on Sunday of this week. His shortness of breath started today. This is very consistent when he was here a month ago and his symptoms improved after starting on diuresis. After receiving Lasix here in the ER and urinating multiple times he states he is actually feeling better. He states he is less short of breath when he is lying down. His EKG is unchanged. His BNP is elevated and chest x-ray is consistent with CHF. Plan will be is to discharge patient home on Lasix. He has a follow-up with his primary doctor on Sunday of next week. He was given return precautions. He expressed understanding and agreement. Discharge Plan Departure Patient Disposition: Home Clinical Impression: Pulmonary edema Instructions: DI for Shortness of Breath Activity Restrictions/Additional Instructions: A prescription for Lasix was sent to [facility]. Please start taking it as directed. Your next dose will be tomorrow. Keep your appointment with your primary doctor on Sunday of next week. Return to the emergency department for new or worsening symptoms. Prescriptions: New furosemide [Lasix] 20 mg tablet 20 mg PO DAILY Qty: 30 0RF No Action amlodipine 2.5 mg tablet See Rx Instructions .ROUTE .COMPLEX Qty: 180 0RF Dose Instruction: TAKE TWO TABLETS BY MOUTH DAILY Rx Instructions: TAKE TWO TABLETS BY MOUTH DAILY lisinopril 20 mg tablet See Rx Instructions .ROUTE .COMPLEX Qty: 90 0RF Dose Instruction: TAKE ONE TABLET BY MOUTH ONE TIME DAILY Rx Instructions: TAKE ONE TABLET BY MOUTH ONE TIME DAILY ibuprofen 200 mg Tablet 400 mg PO Q6H PRN (Reason: Pain (Scale Score 4-6)) furosemide [Lasix] 20 mg tablet 20 mg PO DAILY Qty: 30 0RF Referrals: Viola Garcia MD [Primary Care Provider] - Stand Alone Forms: Patient Portal/API
[2022-10-07 10:05] LABS: NT-proBNP (BNP-Adult 18+) 2450 pg/mL (<125); Troponin I 0.023 ng/mL (0.01-0.034)
== END 2022-10-07 11:12 | disposition home or self-care (01) ==
PROVIDERS: Emergency Provider Emergency Medicine; PCP Family Medicine
DX: J81.1 Chronic pulmonary edema (principal); R06.02 Shortness of breath; R07.9 Chest pain, unspecified
CPT/HCPCS: 36415; 71045; 80053; 81003; 82550; 83690; 83735; 83880; 84484; 85025; 93005; 93010; 96365; 99284; J1940

== ENCOUNTER → 2022-10-12 08:37 | Outpatient (CLI) | payer MEDICARE, OTHER, SELFPAY ==
[2022-08-10 15:02] VITALS: BMI 31.0
--- NOTE | 2022-10-12 08:38 | DI.US.S_ITS ---
PROCEDURE: US CAROTID DOPPLER BI INDICATIONS: lightheadedness TECHNIQUE: Color and pulse Doppler interrogation was performed of both carotid systems, with image documentation and velocity measurements. COMPARISON: [facility], US, CAROTID ARTERY DOPPLER BILAT, 08/31/2016, 13:51. FINDINGS: Stenosis calculations are based on SRU (Society of Radiologists in Ultrasound) criteria. Right side: Brachial blood pressure: 140/67 mm Hg. Common carotid artery peak systolic velocity: 117 cm/sec. Internal carotid artery peak systolic velocity: 72 cm/sec. Internal carotid artery end diastolic velocity: 9 cm/sec. External carotid artery peak systolic velocity: 117 cm/sec. ICA/CCA peak systolic ratio: 0.53 . [place] scale imaging description: Trace calcified atherosclerotic plaque. Percent internal carotid artery stenosis: Less than 50% . Vertebral artery: Flow direction is antegrade. Left side: Brachial blood pressure: 138/68 mm Hg. Common carotid artery peak systolic velocity: 125 cm/sec. Internal carotid artery peak systolic velocity: 72 cm/sec. Internal carotid artery end diastolic velocity: 10 cm/sec. External carotid artery peak systolic velocity: 92 cm/sec. ICA/CCA peak systolic ratio: 0.58 . [place] scale imaging description: Trace atherosclerotic plaque Percent internal carotid artery stenosis: Less than 50% . Vertebral artery: Flow direction is antegrade. IMPRESSION: Less than 50% stenosis of the internal carotid arteries by peak systolic velocity criteria. Dictated by: Caden Blanco M.D. on 10/12/2022 at 11:36 Approved by: Caden Blanco M.D. on 10/12/2022 at 11:37
== END ==
PROVIDERS: PCP Family Medicine; Referring Provider Family Medicine; Visit Provider Family Medicine
DX: R42 Dizziness and giddiness (principal); I65.23 Occlusion and stenosis of bilateral carotid arteries
CPT/HCPCS: 93880

== ENCOUNTER 2023-06-06 17:28 | Emergency (ER) | payer MEDICARE, OTHER, SELFPAY ==
[2022-08-10 15:02] VITALS: BMI 31.0
[2023-06-06 17:34] VITALS: BP 165/93; PULSE 104; RESP 16; TEMP 37.2; O2SAT 97; BMI 32.1
[2023-06-06 17:56] LABS: Appearance Urine UA CLEAR; Bilirubin Urine UA NEGATIVE (NEGATIVE); Color Urine UA YELLOW; Glucose Urine UA NEGATIVE (Negative); Ketones Urine UA TRACE (NEGATIVE); Leukocyte Esterase Urine UA 1+ (NEGATIVE); Nitrite Urine UA NEGATIVE (Negative); Occult Blood Urine UA 1+ (Negative); Protein Urine UA 2+ (Negative); Urobilinogen Urine UA 0.2 E.U./dL (0.2); pH Urine UA 5.5 (4.5-8.0)
[2023-06-06 18:04] LABS: Bacteria Urine Moderate (10-30); Culture Indicated Urine Specimen Cultured; Mucus Urine 2+ (Negative); RBC Urine 0-1/HPF (0-5/HPF); Squamous Epithelial Cell Urine 0-1 /HPF (0-5/HPF); Urine Volume 10mL (spun); WBC Urine 10-30/HPF (0-5/HPF)
[2023-06-06 20:20] VITALS: BP 168/97; PULSE 95; RESP 16; TEMP 36.8; O2SAT 96
[2023-06-06 20:45] LABS: Add Manual Diff / Slide Review NO; Basophils Absolute Auto 100 /uL (0-100); Basophils Percent Auto 0.8 % (0-2); Eosinophils Absolute Auto 100 /uL (0-450); Eosinophils Percent Auto 0.9 % (2-4); Hematocrit 34.5 % (41-53); Hemoglobin 11.7 g/dL (13.5-17.5); Lymphocytes Absolute Auto 2500 /uL (1100-4500); Lymphocytes Percent Auto 18.4 % (25-40); Mean Corpuscular HGB Conc 33.8 % (30-36); Mean Corpuscular Hemoglobin 31.5 PG (26-34); Mean Corpuscular Volume 93.1 fL (80-100); Monocytes Absolute Auto 1000 /uL (0-900); Monocytes Percent Auto 7.8 % (3-14); Neutrophils Absolute Auto 9600 /uL (1500-7000); Neutrophils Percent Auto 72.1 % (50-75); Platelet Count 232 X10^3/uL (150-400); Red Cell Distribution Width 13.8 % (11.6-14.8); White Blood Cell Count 13.4 X10^3/uL (4.5-11.0)
--- NOTE | 2023-06-06 20:46 | ED.MALEGU ---
HPI - Male Genitourinary General Chief complaint: Urogenital-Male Stated complaint: open heart sx 30days, now has fever, psbl uti Time Seen by Provider: 06/06/23 20:22 History of Present Illness HPI Narrative: 67yoM with hx aortic repair 1 month ago presents by private vehicle from home for urinary frequency and fever. States he had a catheter postoperatively that was removed 1 week later. Patient states he has to use the restroom multiple times and he feels like he was not completely emptying his bladder. He states that last night he had a temperature of 100.5?. No medications taken at home prior to arrival. Related Data Previous Rx's Medication Instructions Recorded furosemide 20 mg tablet (Lasix) 20 mg PO DAILY #90 tabs 10/11/22 amlodipine 2.5 mg tablet See Rx Instructions .Route 01/04/23 .COMPLEX #180 tabs lisinopril 20 mg tablet See Rx Instructions .Route 01/04/23 .COMPLEX #90 tabs amoxicillin 500 mg-potassium 1 tab PO BID #20 tabs 02/01/23 clavulanate 125 mg tablet (Augmentin) cefpodoxime 200 mg tablet 200 mg PO Q12H #20 tabs 06/06/23 tamsulosin 0.4 mg capsule (Flomax) 0.4 mg PO DAILY #30 caps 06/06/23 Allergies Allergy/AdvReac Type Severity Reaction Status Date / Time No Known Drug Allergies Allergy Verified 02/01/23 09:46 Review of Systems Review of Systems Narrative: Negative except as noted above Patient History Medical History Diverticulitis Pre-diabetes ADHD Thoracic aortic aneurysm without rupture (04/05/16) Hyponatremia (04/05/16) Essential hypertension (03/29/16) Surgical History Status post cholecystectomy (08/19/14) Status post hernia repair Social History household members: spouse education level: other occupational status: other 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 Gym: Cardio/muscle. Smoking Status: Former smoker tobacco type: cigarettes and cigars alcohol intake frequency: 0-2 drinks per day Alcohol type: hard liquor Substance Use Type: does not use Exam Initial Vital Signs Initial Vital Signs: Vital Signs Temperature 98.9 F 06/06/23 17:34 Pulse Rate 104 H 06/06/23 17:34 Respiratory Rate 16 06/06/23 17:34 Blood Pressure 165/93 H 06/06/23 17:34 Pulse Oximetry 97 06/06/23 17:34 Oxygen Delivery Method Room Air 06/06/23 17:34 Const: Awake, alert, no acute distress, nontoxic appearing Cardiac: regular rate, regular rhythm, sternotomy wound clean, dry, well healed RESP: unlabored, clear bilaterally, no wheezing GI: Soft, nontender, nondistended, no rebound, no guarding MSK: No CVA tenderness bilaterally Skin: Warm, Dry, intact, no rashes Neuro: AO x3, CN II-XII grossly intact, moves all extremities Course Orders Ordered: ED Orders 06/06/23 20:31 CBC Auto Diff [Complete Blood Count AUTO DIFF] Stat CMP [Comprehensive Metabolic Panel] Stat Discontinued Medications Ceftriaxone Sodium 2,000 mg/ (Sodium Chloride) 100 mls @ 200 mls/hr IV NOW ONE Stop: 06/06/23 20:23 Last Infusion: 06/06/23 21:30 Dose: Infused Documented By: Admin: 06/06/23 20:53 Dose: 200 mls/hr Documented By: DIOGO Vital Signs Vital signs: Vital Signs - 8 hr 06/06/23 21:37 Temperature 98.2 F Pulse Rate 89 Respiratory Rate 18 Blood Pressure 149/87 H Pulse Oximetry 96 Oxygen Delivery Method Room Air MDM - Male Genitourinary Lab Data 06/06/23 20:31 06/06/23 20:31 Labs: Lab Results 06/06/23 06/06/23 Range/Units 17:46 20:31 WBC 13.4 H (4.5-11.0) X10^3/uL RBC 3.70 L (4.5-5.9) X10^6/uL Hgb 11.7 L (13.5-17.5) g/dL Hct 34.5 L (41-53) % MCV 93.1 (80-100) fL MCH 31.5 (26-34) PG MCHC 33.8 (30-36) % RDW 13.8 (11.6-14.8) % Plt Count 232 (150-400) X10^3/uL Neut % (Auto) 72.1 (50-75) % Lymph % (Auto) 18.4 L (25-40) % [place] % (Auto) 7.8 (3-14) % Eos % (Auto) 0.9 L (2-4) % Baso % (Auto) 0.8 (0-2) % Neut # (Auto) 9600 H (3589-5588) /uL Lymph # (Auto) 2500 (4908-7684) /uL [place] # (Auto) 1000 H (0-900) /uL Eos # (Auto) 100 (0-450) /uL Baso # (Auto) 100 (0-100) /uL Sodium 136 L (137-145) mmol/L Potassium 3.9 (3.4-5.1) mmol/L Chloride 103 (98-107) mmol/L Carbon Dioxide 22 (22-32) mmol/L BUN 13 (9-20) mg/dL Creatinine 0.95 (0.66-1.25) mg/dL Estimated GFR > 60 (>60) mL/min BUN/Creatinine Ratio 13.7 (6-22) Glucose 125 H (80-110) mg/dL Calcium 9.4 (8.4-10.2) mg/dL Total Bilirubin 0.8 (0.2-1.3) mg/dL AST 41 (17-59) IU/L ALT 79 H (<50) IU/L Alkaline Phosphatase 79 (38-126) U/L Total Protein 7.8 (6.3-8.2) g/dL Albumin 4.2 (3.5-5.0) g/dL Globulin 3.6 (1.7-4.1) g/dL Albumin/Globulin Ratio 1.2 (1.0-2.8) Urine Color Yellow Urine Appearance Clear Urine pH 5.5 (4.5-8.0) Ur Specific [place] 1.020 (1.000-1.035) Urine Protein 2+ H (Negative) Urine Glucose (UA) Negative (Negative) g/dL Urine Ketones Trace H (NEGATIVE) Urine Occult Blood 1+ H (Negative) Urine Nitrate Negative (Negative) Urine Bilirubin Negative (NEGATIVE) Urine Urobilinogen 0.2 (0.2) E.U./dL Ur Leukocyte Esterase 1+ H (NEGATIVE) Urine RBC 0-1/hpf (0-5/HPF) Urine WBC 10-30/hpf H (0-5/HPF) Ur Squamous Epith Cells 0-1 /hpf (0-5/HPF) Urine Bacteria Moderate (10-30) H (None) Urine Mucus 2+ H (Negative) Ur Culture Indicated? Specimen cultured Vol Urine Centrifuged 10ml (spun) MDM Narrative Medical decision making narrative: Well-appearing patient with urinary frequency and reported fever at home. He was afebrile here and has not taken any antipyretics prior to arrival. No CVA tenderness bilaterally. Urinalysis significant for WBC count 13.4, hemoglobin 11.7, sodium 136, creatinine 0.95, urinalysis positive for leukocyte esterase, WBCs, bacteria. Bladder scan shows no significant urinary retention, however he is unable to completely empty his bladder and has approximately 100ccs urine postvoid. Patient counseled on lab findings, given a dose of Rocephin and antibiotics sent to pharmacy of choice. We will also start Flomax due to incomplete bladder emptying. Patient advised to follow up with his primary care physician. ED return precautions discussed at bedside. Patient expressed understanding of the plan and is in agreement at this time. All questions answered at the time of discharge. Discharge Plan Departure Patient Disposition: Home Clinical Impression: Urinary tract infection Instructions: DI for Urinary Tract Infection (UTI), DI for Urinary Retention in Men Activity Restrictions/Additional Instructions: Take all of your antibiotics as prescribed. Flomax can help you to fully empty your bladder. Follow up with your primary care physician Prescriptions: New cefpodoxime 200 mg tablet 200 mg PO Q12H Qty: 20 0RF Rx Instructions: must administer with a meal/food tamsulosin [Flomax] 0.4 mg capsule 0.4 mg PO DAILY Qty: 30 0RF No Action furosemide [Lasix] 20 mg tablet 20 mg PO DAILY Qty: 90 3RF amoxicillin-pot clavulanate [Augmentin] 500-125 mg tablet 1 tab PO BID Qty: 20 0RF amlodipine 2.5 mg tablet See Rx Instructions .ROUTE .COMPLEX Qty: 180 3RF Dose Instruction: TAKE TWO TABLETS BY MOUTH DAILY Rx Instructions: TAKE TWO TABLETS BY MOUTH DAILY lisinopril 20 mg tablet See Rx Instructions .ROUTE .COMPLEX Qty: 90 3RF Dose Instruction: TAKE ONE TABLET BY MOUTH ONE TIME DAILY Rx Instructions: TAKE ONE TABLET BY MOUTH ONE TIME DAILY Referrals: Viola Garcia MD [Primary Care Provider] - Stand Alone Forms: Patient Portal/API
[2023-06-06] MEDS: cefTRIAXone 2,000 MG in SODIUM CHLORIDE 0.9% 100 ML 200 MG IV (20:53)
[2023-06-06 20:56] LABS: Alanine Aminotransferase 79 IU/L (<50); Albumin 4.2 g/dL (3.5-5.0); Albumin Globulin Ratio 1.2 (1.0-2.8); Alkaline Phosphatase 79 U/L (38-126); Aspartate Aminotransferase 41 IU/L (17-59); BUN Creatinine Ratio 13.7 (6-22); Bilirubin Total 0.8 mg/dL (0.2-1.3); Blood Urea Nitrogen 13 mg/dL (9-20); Calcium 9.4 mg/dL (8.4-10.2); Carbon Dioxide 22 mmol/L (22-32); Chloride 103 mmol/L (98-107); Estimated Glomerular Filt Rate > 60 mL/min (>60); Globulin 3.6 g/dL (1.7-4.1); Glucose 125 mg/dL (80-110); HEMOLYSIS < 15 (0-50); Potassium 3.9 mmol/L (3.4-5.1); Sodium 136 mmol/L (137-145); Total Protein 7.8 g/dL (6.3-8.2)
[2023-06-06 21:37] VITALS: BP 149/87; PULSE 89; RESP 18; TEMP 36.8; O2SAT 96
== END 2023-06-06 21:38 | disposition home or self-care (01) ==
PROVIDERS: Emergency Medicine; Emergency Provider Emergency Medicine; PCP Family Medicine
DX: N39.0 Urinary tract infection, site not specified (principal)
CPT/HCPCS: 36415; 51798; 80053; 81001; 85025; 87077; 87086; 87186; 96365; 99284; J0696

== ENCOUNTER 2023-10-17 02:12 | Emergency (ER) | payer MEDICARE, OTHER, SELFPAY ==
[2023-06-20 16:29] VITALS: BMI 31.0
[2023-10-17 02:34] VITALS: BP 168/101; PULSE 103; RESP 16; TEMP 36.9; O2SAT 94; BMI 31.5
[2023-10-17 03:21] VITALS: PULSE 91; RESP 18; O2SAT 98
[2023-10-17 03:30] VITALS: BP 139/87; PULSE 97; RESP 17; O2SAT 97
[2023-10-17 04:00] VITALS: BP 140/88; PULSE 94; RESP 16; O2SAT 90
--- NOTE | 2023-10-17 04:15 | ED_ITS ---
HPI - General Adult General Chief complaint: Hypertension Stated complaint: High blood pressure times 3 days Time Seen by Provider: 10/17/23 04:15 Source: patient, RN notes reviewed and old records reviewed Mode of arrival: Ambulatory Limitations: no limitations History of Present Illness HPI narrative: 60-year-old male with history hypertension, dyslipidemia, prediabetes, known thoracic aortic aneurysm measuring 4.3 cm on 08/07/2022 CT angio with open heart surgery with 2 valves repaired and a clip placed in May of 2023 presents with complaint of hypertension for the past 3 days has been getting elevated, does take blood pressure medications has been taking double doses. Patient presents with complaint of elevated blood pressure. He states he is normally on telmisartan 20 mg and amlodipine 2.5 mg. States he checks his blood pressure regularly, for the past 3 days he has had elevated pressures typically 175 to 160s systolic over 112 to 90s diastolic. Patient states he has been checking quite regularly sometimes hourly. He notes he was not symptomatic until tonight woke up checked his blood pressure and then rechecked it again. Patient states he took an extra dose of amlodipine at that time which was about 1:00 a.m. in the morning. Patient states he felt shaky. He denies any headache, no active chest pain, no shortness of breath, no nausea or vomiting, no diaphoresis, no new swelling of extremities. Notes he has had heart failure or fluid overload in the past and states he would swelling of his face and hands which he has not had recently. He did use to take Lasix and took a dose on Sunday but did not appreciate any change. He denies any fevers chills cold cough or congestion. States he has had prior hernia repair and cholecystectomy along with his aortic valve repair and clips. Patient states he has been on his blood pressure medications the amlodipine for many years and then telmisartan from at least spring. Denies any drug allergies. No tobacco, drinks non alcoholic alcohol, no recreational drugs. Primary care is Dr. Garcia. His cardiology is [facility]. He has not been in touch with his physicians about his blood pressure being elevated because it has been a new occurrence. Related Data Home Medications Medication Instructions Recorded Confirmed telmisartan 40 mg tablet 40 mg PO DAILY High blood pressure 06/20/23 06/20/23 Previous Rx's Medication Instructions Recorded amlodipine 2.5 mg tablet See Rx Instructions .Route 01/04/23 .COMPLEX #180 tabs tamsulosin 0.4 mg capsule (Flomax) 0.4 mg PO DAILY #30 caps 06/06/23 furosemide 20 mg tablet (Lasix) 20 mg PO DAILY #90 tabs 08/29/23 Allergies Allergy/AdvReac Type Severity Reaction Status Date / Time No Known Drug Allergies Allergy Verified 06/20/23 15:03 Review of Systems Review of Systems ROS Unobtainable: All systems reviewed & are unremarkable except as noted in HPI and below Patient History Medical History Diverticulitis Pre-diabetes ADHD Thoracic aortic aneurysm without rupture (04/05/16) Hyponatremia (04/05/16) Essential hypertension (03/29/16) Surgical History Status post cholecystectomy (08/19/14) Status post hernia repair Social History household members: spouse education level: other occupational status: other 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 Gym: Cardio/muscle. Smoking Status: Former smoker tobacco type: cigarettes and cigars alcohol intake frequency: 0-2 drinks per day Alcohol type: hard liquor Substance Use Type: does not use Exam Narrative Exam Narrative: GENERAL: Alert and oriented x three, male in no acute distress HEENT: Head normocephalic, atraumatic, EOMI, pupils reactive, face symmetric, moist mucous membranes NECK: Supple, full range of motion CARDIOVASCULAR: Regular rate and rhythm without murmurs, rubs or gallops. No JVD, no edema bilateral lower extremities, no edema bilateral upper extremities. RESPIRATORY: Breath sounds equal bilaterally, no wheezes rales or rhonchi. No tachypnea or accessory muscle use. ABDOMEN: Soft, nontender. Normoactive bowel sounds all 4 quadrants. No guarding or rebound, rigidity, no mass : No CVA tenderness EXTREMITIES: Normal range of motion, no clubbing or edema. Neurovascularly intact NEUROLOGICAL: Cranial nerves II through XII grossly intact. Moving all extremities SKIN: Warm, dry, no petechiae, no rashes or lesions. Initial Vital Signs Initial Vital Signs: Vital Signs Temperature 98.4 F 10/17/23 02:34 Pulse Rate 103 H 10/17/23 02:34 Respiratory Rate 16 10/17/23 02:34 Blood Pressure 168/101 H 10/17/23 02:34 Pulse Oximetry 94 10/17/23 02:34 Oxygen Delivery Method Room Air 10/17/23 02:34 Course Vital Signs Vital signs: Vital Signs - 8 hr 10/17/23 02:34 10/17/23 03:21 10/17/23 03:30 Temperature 98.4 F Pulse Rate 103 H 91 H 97 H Respiratory Rate 16 18 17 Blood Pressure 168/101 H Pulse Oximetry 94 98 97 Oxygen Delivery Method Room Air 10/17/23 03:30 10/17/23 04:00 10/17/23 04:00 Temperature Pulse Rate 94 H Respiratory Rate 16 Blood Pressure 139/87 140/88 Pulse Oximetry 90 L Oxygen Delivery Method 10/17/23 04:30 10/17/23 04:30 10/17/23 04:53 Temperature Pulse Rate 94 H 87 Respiratory Rate 18 16 Blood Pressure 144/96 H 144/96 H Pulse Oximetry 94 93 Oxygen Delivery Method Room Air Medical Decision Making [facility] Narrative Medical decision making narrative: 68-year-old male with reported elevated blood pressures for the last 3 days, patient woke up this evening checked his blood pressure was elevated he felt shaky but has since improved. He did take an extra dose of amlodipine at about 1:00 a.m. this morning presented to the ED. after discussion offered labs EKG and chest x-ray patient defers as his blood pressures improved while waiting to be evaluated. He would like to return home we discussed adjusting his medications and increasing his telmisartan to 40 mg, amlodipine to 5 mg daily with the ability take an extra dose of 2.5 mg in the evening of amlodipine. Patient is to follow up with his primary care physician for any additional recommendations to his blood pressure. We did discuss that is sometimes there can be changes to renal function or other causes then he should be evaluated if persistently elevated. Discharge Plan Departure Patient Disposition: Home Clinical Impression: Hypertension Instructions: DI for High Blood Pressure Activity Restrictions/Additional Instructions: Follow up with Dr. Garcia or your cardiology team to review your blood pressure medications and adjust them as needed. You can increase your telmisartan 40 mg or 2 tablets daily in the morning. Also increase your amlodipine to 5 mg or 2 tablets in the morning. If you are persistently elevated you can take an additional 2.5 mg of amlodipine in the evening. Please return for severe headaches, new chest pain, shortness of breath, lightheadedness or passing out, persistent vomiting, new swelling of extremities or other new or concerning changes. Prescriptions: No Action telmisartan 40 mg tablet 40 mg PO DAILY amlodipine 2.5 mg tablet See Rx Instructions .ROUTE .COMPLEX Qty: 180 3RF Dose Instruction: TAKE TWO TABLETS BY MOUTH DAILY Rx Instructions: TAKE TWO TABLETS BY MOUTH DAILY furosemide [Lasix] 20 mg tablet 20 mg PO DAILY Qty: 90 3RF tamsulosin [Flomax] 0.4 mg capsule 0.4 mg PO DAILY Qty: 30 0RF Referrals: Viola Garcia MD [Primary Care Provider] - Stand Alone Forms: Patient Portal/API
[2023-10-17 04:30] VITALS: BP 144/96; PULSE 94; RESP 18; O2SAT 94
[2023-10-17 04:53] VITALS: BP 144/96; PULSE 87; RESP 16; O2SAT 93
== END 2023-10-17 04:55 | disposition home or self-care (01) ==
PROVIDERS: Emergency Provider Emergency Medicine; PCP Family Medicine
DX: I10 Essential (primary) hypertension (principal); I71.20 Thoracic aortic aneurysm, without rupture, unspecified; Z87.891 Personal history of nicotine dependence
CPT/HCPCS: 99281; 99282

== ENCOUNTER → 2023-12-01 08:29 | Outpatient (CLI) | payer MEDICARE, OTHER, SELFPAY ==
[2023-06-20 16:29] VITALS: BMI 31.0
[2023-12-01 10:13] LABS: Alanine Aminotransferase 151 IU/L (<50); Albumin 4.5 g/dL (3.5-5.0); Albumin Globulin Ratio 1.5 (1.0-2.8); Alkaline Phosphatase 72 U/L (38-126); Aspartate Aminotransferase 64 IU/L (17-59); BUN Creatinine Ratio 28.7 (6-22); Bilirubin Total 0.6 mg/dL (0.2-1.3); Blood Urea Nitrogen 29 mg/dL (9-20); Calcium 10.2 mg/dL (8.4-10.2); Carbon Dioxide 23 mmol/L (22-32); Chloride 105 mmol/L (98-107); Cholesterol 185 mg/dL (140-199); Estimated Glomerular Filt Rate > 60 mL/min (>60); Glucose 115 mg/dL (80-110); HDL Cholesterol 51 mg/dL (40-60); HEMOLYSIS < 15 (0-50); LDL Cholesterol Calculated 116 mg/dL (<100); Potassium 5.2 mmol/L (3.4-5.1); Sodium 137 mmol/L (137-145); Total Protein 7.5 g/dL (6.3-8.2); Triglycerides 89 mg/dL (35-150)
== END ==
PROVIDERS: PCP Family Medicine; Referring Provider Internal Medicine Cardiovascular Disease; Visit Provider Internal Medicine Cardiovascular Disease
DX: I71.9 Aortic aneurysm of unspecified site, without rupture (principal); Z95.2 Presence of prosthetic heart valve; Z98.890 Other specified postprocedural states
CPT/HCPCS: 36415; 80053; 80061

== ENCOUNTER → 2023-12-20 08:26 | Outpatient (CLI) | payer MEDICARE, OTHER, SELFPAY ==
[2023-06-20 16:29] VITALS: BMI 31.0
[2023-12-20 09:41] LABS: Add Manual Diff / Slide Review NO; Basophils Absolute Auto 0 /uL (0-100); Basophils Percent Auto 0.3 % (0-2); Eosinophils Absolute Auto 200 /uL (0-450); Hematocrit 39.7 % (41-53); Hemoglobin 13.8 g/dL (13.5-17.5); Lymphocytes Absolute Auto 2700 /uL (1100-4500); Lymphocytes Percent Auto 33.7 % (25-40); Mean Corpuscular HGB Conc 34.7 % (30-36); Mean Corpuscular Hemoglobin 32.5 PG (26-34); Mean Corpuscular Volume 93.6 fL (80-100); Monocytes Absolute Auto 600 /uL (0-900); Monocytes Percent Auto 8.1 % (3-14); Neutrophils Absolute Auto 4400 /uL (1500-7000); Neutrophils Percent Auto 54.9 % (50-75); Platelet Count 192 X10^3/uL (150-400); Red Blood Cell Count 4.24 X10^6/uL (4.5-5.9); Red Cell Distribution Width 13.8 % (11.6-14.8)
[2023-12-20 10:09] LABS: Alanine Aminotransferase 41 IU/L (<50); Albumin Globulin Ratio 1.5 (1.0-2.8); Alkaline Phosphatase 79 U/L (38-126); Aspartate Aminotransferase 29 IU/L (17-59); BUN Creatinine Ratio 20.7 (6-22); Bilirubin Total 0.5 mg/dL (0.2-1.3); Blood Urea Nitrogen 19 mg/dL (9-20); Calcium 9.8 mg/dL (8.4-10.2); Carbon Dioxide 20 mmol/L (22-32); Chloride 108 mmol/L (98-107); Cholesterol 153 mg/dL (140-199); Estimated Glomerular Filt Rate > 60 mL/min (>60); Globulin 2.6 g/dL (1.7-4.1); Glucose 111 mg/dL (80-110); HDL Cholesterol 45 mg/dL (40-60); HEMOLYSIS < 15 (0-50); LDL Cholesterol Calculated 70 mg/dL (<100); Potassium 4.2 mmol/L (3.4-5.1); Sodium 137 mmol/L (137-145); Total Protein 6.6 g/dL (6.3-8.2); Triglycerides 191 mg/dL (35-150)
[2023-12-20 11:03] LABS: Creatinine Urine Random 144.16 mg/dL
[2023-12-20 11:07] LABS: Microalbumin Urine Random 1.4 mg/dL (0-1.6)
== END ==
LOC: LAB 08:27
PROVIDERS: PCP Family Medicine; Referring Provider Family Medicine; Visit Provider Family Medicine
DX: R73.03 Prediabetes (principal); I10 Essential (primary) hypertension; D64.9 Anemia, unspecified
CPT/HCPCS: 36415; 80053; 80061; 82043; 82570; 83036; 85025

== ENCOUNTER 2024-02-17 12:02 | Emergency (ER) | payer MEDICARE, OTHER, SELFPAY ==
[2023-06-20 16:29] VITALS: BMI 31.0
[2024-02-17] VITALS (12 sets, daily range): BP systolic 151–192; BP diastolic 74–104; PULSE 79–97; RESP 12–21; TEMP 36.8; O2SAT 95–100; BMI 32.3
--- NOTE | 2024-02-17 12:23 | DI.RAD.S_ITS ---
PROCEDURE: XR CHEST 1V INDICATIONS: Shortness of breath TECHNIQUE: One view of the chest was acquired. COMPARISON: [facility], , XR CHEST 1V, 10/07/2022, 9:18. [facility], CR, XR CHEST 1V, 09/04/2022, 7:11. FINDINGS: Surgical changes and devices: None. Lungs and pleura: Lungs are clear. No pleural effusions or pneumothorax. Mediastinum: Mediastinal contours appear normal. Heart size is normal. Bones and chest wall: No suspicious bony lesions. Overlying soft tissues appear unremarkable. IMPRESSION: No acute cardiopulmonary abnormality is seen. Dictated by: Layne French M.D. on 02/17/2024 at 11:47 Approved by: Layne French M.D. on 02/17/2024 at 11:47
--- NOTE | 2024-02-17 12:28 | EKG_ITS ---
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
[2024-02-17 12:53] LABS: Add Manual Diff / Slide Review NO; Basophils Absolute Auto 100 /uL (0-100); Basophils Percent Auto 0.5 % (0-2); Eosinophils Absolute Auto 200 /uL (0-450); Eosinophils Percent Auto 2.2 % (2-4); Hematocrit 42.7 % (41-53); Hemoglobin 14.6 g/dL (13.5-17.5); Lymphocytes Absolute Auto 2300 /uL (1100-4500); Lymphocytes Percent Auto 22.3 % (25-40); Mean Corpuscular HGB Conc 34.3 % (30-36); Mean Corpuscular Hemoglobin 31.8 PG (26-34); Mean Corpuscular Volume 92.8 fL (80-100); Monocytes Absolute Auto 700 /uL (0-900); Neutrophils Absolute Auto 7100 /uL (1500-7000); Platelet Count 218 X10^3/uL (150-400); Red Cell Distribution Width 13.8 % (11.6-14.8); White Blood Cell Count 10.5 X10^3/uL (4.5-11.0)
[2024-02-17 13:05] LABS: Lactate (Lactic Acid) 1.3 mmol/L (0.7-2.1)
[2024-02-17 13:06] LABS: Alanine Aminotransferase 40 IU/L (<50); Albumin 4.7 g/dL (3.5-5.0); Albumin Globulin Ratio 1.4 (1.0-2.8); Alkaline Phosphatase 77 U/L (38-126); Aspartate Aminotransferase 34 IU/L (17-59); BUN Creatinine Ratio 16.7 (6-22); Bilirubin Total 0.6 mg/dL (0.2-1.3); Blood Urea Nitrogen 16 mg/dL (9-20); Calcium 9.3 mg/dL (8.4-10.2); Carbon Dioxide 20 mmol/L (22-32); Chloride 105 mmol/L (98-107); Estimated Glomerular Filt Rate > 60 mL/min (>60); Globulin 3.4 g/dL (1.7-4.1); Glucose 130 mg/dL (80-110); HEMOLYSIS < 15 (0-50); Potassium 4.4 mmol/L (3.4-5.1); Sodium 135 mmol/L (137-145); Total Protein 8.1 g/dL (6.3-8.2)
[2024-02-17 13:08] LABS: Prothrombin Time 11.7 SECONDS (9.4-12.5)
--- NOTE | 2024-02-17 13:16 | ED_ITS ---
HPI - Extremity Problem General Chief complaint: Extremity Problem,Nontraumatic Stated complaint: rt foot and knee swelling and px Time Seen by Provider: 02/17/24 13:13 Source: patient Mode of arrival: Ambulatory History of Present Illness HPI Narrative: Patient 68-year-old male with history of gout, cardiac valve replacement not on anticoagulation secondary to bacteremia, hypertension presenting today with right ankle pain and swelling. He reports that it has been going for about 5 days. 5 days ago he also noted shortness of breath with exertion he says it does not last he denies any sort of orthopnea he has no chest pain. The swelling has not gotten really any worse but it has not going away he does not have any calf pain or swelling. He has more around his ankle and in his foot. It does hurt to walk. He had a gout attack 6 weeks ago in his left toe after traveling back from [place]. He said he treated that with allopurinol and colchicine and went away. He took 1 allopurinol this morning he did not notice much relief. He did take some ibuprofen yesterday which seemed to help. He denies any fever or chills. Related Data Home Medications Medication Instructions Recorded Confirmed telmisartan 40 mg tablet 40 mg PO DAILY High blood pressure 06/20/23 12/24/23 Previous Rx's Medication Instructions Recorded tamsulosin 0.4 mg capsule (Flomax) 0.4 mg PO DAILY #30 caps 06/06/23 furosemide 20 mg tablet (Lasix) 20 mg PO DAILY #90 tabs 08/29/23 prednisone 20 mg tablet 20 mg PO DAILY #5 tabs 12/24/23 amlodipine 2.5 mg tablet 2.5 mg PO DAILY #180 tabs 02/06/24 cephalexin 500 mg capsule 500 mg PO BID 7 days #14 caps 02/17/24 Allergies Allergy/AdvReac Type Severity Reaction Status Date / Time No Known Drug Allergies Allergy Verified 02/17/24 12:19 Patient History Medical History Diverticulitis Pre-diabetes ADHD Thoracic aortic aneurysm without rupture (04/05/16) Hyponatremia (04/05/16) Essential hypertension (03/29/16) Surgical History Status post cholecystectomy (08/19/14) Status post hernia repair Social History household members: spouse education level: other occupational status: other 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 Gym: Cardio/muscle. Smoking Status: Former smoker tobacco type: cigarettes and cigars alcohol intake frequency: 0-2 drinks per day Alcohol type: hard liquor Exam Initial Vital Signs Initial Vital Signs: Vital Signs Temperature 98.3 F 02/17/24 12:10 Pulse Rate 97 H 02/17/24 12:10 Respiratory Rate 18 02/17/24 12:10 Blood Pressure 173/104 H 02/17/24 12:10 Pulse Oximetry 98 02/17/24 12:10 Oxygen Delivery Method Room Air 02/17/24 12:10 GENERAL: Alert pleasant 68-year-old male and in no acute distress. HEENT: Head atraumatic,EOMI, pupils reactive, face symmetric, moist mucous membranes CARDIOVASCULAR: Regular rate and rhythm without murmurs, rubs or gallops. RESPIRATORY: Breath sounds equal bilaterally, no wheezes rales or rhonchi. No conversational dyspnea ABDOMEN: Soft, nontender. Normoactive bowel sounds all 4 quadrants. No guarding or rebound. EXTREMITIES: Normal range of motion, no clubbing or edema. Neurovascularly intact Right lower extremity he does have some mild erythema on the medial side. No significant streaking he was noted to have more swelling around the right ankle more than the left. Distal pedal pulses intact. No significant calf pain or swelling NEUROLOGICAL: Alert and oriented x4.Normal gait and speech. Cranial nerves II through XII grossly intact. SKIN: Warm, dry, no laceration, no petechiae, no rashes or lesions. Minimal erythema right lower extremity no fluctuation no streaking Course Orders Ordered: ED Orders 02/17/24 12:23 XR chest 1V Stat EKG-12 Lead Stat Measure peak expiratory flow ONCE RT Consult Eval and Treat NOW 02/17/24 12:44 Complete Blood Count AUTO DIFF Stat Comprehensive Metabolic Panel Stat D Dimer Stat Lactate (Lactic Acid) Stat NT-proBNP (BNP-Adult 18+) Stat Prothrombin Time INR Stat Troponin I Stat Uric Acid Stat 02/17/24 13:28 US periph venous low extrem rt Stat 02/17/24 14:24 CT angio chest PE protocol Stat Discontinued Medications Cephalexin HCl (Cephalexin 250 Mg Capsule) 500 mg PO NOW ONE Stop: 02/17/24 16:49 Last Admin: 02/17/24 16:55 Dose: 500 mg Documented By: PETROS Vital Signs Vital signs: Vital Signs - 8 hr 02/17/24 12:10 02/17/24 13:00 02/17/24 13:30 Temperature 98.3 F Pulse Rate 97 H 87 84 Respiratory Rate 18 17 16 Blood Pressure 173/104 H 151/92 H 158/94 H Pulse Oximetry 98 95 98 Oxygen Delivery Method Room Air Room Air 02/17/24 14:00 02/17/24 14:00 02/17/24 14:30 Temperature Pulse Rate 87 80 Respiratory Rate 13 19 Blood Pressure 155/103 H Pulse Oximetry 96 100 Oxygen Delivery Method 02/17/24 14:30 02/17/24 15:00 02/17/24 15:00 Temperature Pulse Rate 82 Respiratory Rate 20 Blood Pressure 158/97 H 167/104 H Pulse Oximetry 98 Oxygen Delivery Method 02/17/24 15:15 02/17/24 15:15 02/17/24 15:30 Temperature Pulse Rate 97 H 90 Respiratory Rate 19 21 Blood Pressure 192/96 H Pulse Oximetry 99 97 Oxygen Delivery Method 02/17/24 15:30 02/17/24 15:54 02/17/24 15:54 Temperature Pulse Rate 81 Respiratory Rate 12 Blood Pressure 161/74 H 164/95 H Pulse Oximetry 97 Oxygen Delivery Method 02/17/24 16:00 02/17/24 16:00 02/17/24 16:30 Temperature Pulse Rate 85 87 Respiratory Rate 20 19 Blood Pressure 154/95 H Pulse Oximetry 96 96 Oxygen Delivery Method 02/17/24 16:30 02/17/24 17:05 Temperature Pulse Rate 79 Respiratory Rate 18 Blood Pressure 165/96 H 165/96 H Pulse Oximetry 98 Oxygen Delivery Method Room Air MDM - Extremity (Nontraumatic) Lab Data 02/17/24 12:44 02/17/24 12:44 Labs: Lab Results 02/17/24 Range/Units 12:44 WBC 10.5 (4.5-11.0) X10^3/uL RBC 4.60 (4.5-5.9) X10^6/uL Hgb 14.6 (13.5-17.5) g/dL Hct 42.7 (41-53) % MCV 92.8 (80-100) fL MCH 31.8 (26-34) PG MCHC 34.3 (30-36) % RDW 13.8 (11.6-14.8) % Plt Count 218 (150-400) X10^3/uL Neut % (Auto) 68.0 (50-75) % Lymph % (Auto) 22.3 L (25-40) % Clinton % (Auto) 7.0 (3-14) % Eos % (Auto) 2.2 (2-4) % Baso % (Auto) 0.5 (0-2) % Neut # (Auto) 7100 H (8493-5800) /uL Lymph # (Auto) 2300 (3099-1869) /uL Clinton # (Auto) 700 (0-900) /uL Eos # (Auto) 200 (0-450) /uL Baso # (Auto) 100 (0-100) /uL PT 11.7 (9.4-12.5) SECONDS INR 1.0 (0.9-1.3) D-Dimer 1536 H (<500) ng/ml Sodium 135 L (137-145) mmol/L Potassium 4.4 (3.4-5.1) mmol/L Chloride 105 (98-107) mmol/L Carbon Dioxide 20 L (22-32) mmol/L BUN 16 (9-20) mg/dL Creatinine 0.96 (0.66-1.25) mg/dL Estimated GFR > 60 (>60) mL/min BUN/Creatinine Ratio 16.7 (6-22) Glucose 130 H (80-110) mg/dL Lactate 1.3 (0.7-2.1) mmol/L Uric Acid 6.2 (3.5-8.5) mg/dL Calcium 9.3 (8.4-10.2) mg/dL Total Bilirubin 0.6 (0.2-1.3) mg/dL AST 34 (17-59) IU/L ALT 40 (<50) IU/L Alkaline Phosphatase 77 (38-126) U/L Troponin I < 0.012 (0.01-0.034) ng/mL NT-Pro-B Natriuret Pep 203 H (<125) pg/mL Total Protein 8.1 (6.3-8.2) g/dL Albumin 4.7 (3.5-5.0) g/dL Globulin 3.4 (1.7-4.1) g/dL Albumin/Globulin Ratio 1.4 (1.0-2.8) Imaging Data CT scan - chest: Radiologist's Impression: PROCEDURE: CT ANGIO CHEST PE PROTOCOL INDICATIONS: short of breath high dimer TECHNIQUE: After the administration of intravenous contrast, 2 mm thick sections acquired from the pulmonary apices to the posterior costophrenic angles. 3-dimensional maximum intensity projection (MIP) coronal and sagittal reformats were then acquired through the thorax. For radiation dose reduction, the following was used: automated exposure control, adjustment of mA and/or kV according to patient size. COMPARISON: [facility], CT, CT ANGIO CHEST PE PROTOCOL, 09/04/2022, 8:23. FINDINGS: Image quality: Diagnostic. Pulmonary arteries: Pulmonary arteries are normal in size, and demonstrate no intraluminal filling defects to suggest central pulmonary embolism. Lower Neck: No enlarged lymph nodes. Thyroid: No thyroid nodules which require sonographic follow up, per consensus guidelines. Axillae: No enlarged lymph nodes. Chest Wall: Unremarkable. Bones: Unremarkable. Lungs and Pleura: No pneumothorax or pleural effusions. No consolidation or suspicious nodules. Heart: Heart size is normal. No pericardial effusion. A right atrial appendage clip is in place. Thoracic Vessels: No aortic aneurysm. Mediastinum and Liliana: No enlarged lymph nodes. Esophagus: No wall thickening. There is a small hiatal hernia. Upper Abdomen: Visualized upper abdomen solid organs and bowel loops appear normal. IMPRESSION: No pulmonary embolus. No acute cardiopulmonary process. Dictated by: Layne French M.D. on 02/17/2024 at 15:34 Chest x-ray: Radiologist's Impression: PROCEDURE: XR CHEST 1V INDICATIONS: Shortness of breath TECHNIQUE: One view of the chest was acquired. COMPARISON: [facility], CR, XR CHEST 1V, 10/07/2022, 9:18. [facility], CR, XR CHEST 1V, 09/04/2022, 7:11. FINDINGS: Surgical changes and devices: None. Lungs and pleura: Lungs are clear. No pleural effusions or pneumothorax. Mediastinum: Mediastinal contours appear normal. Heart size is normal. Bones and chest wall: No suspicious bony lesions. Overlying soft tissues appear unremarkable. IMPRESSION: No acute cardiopulmonary abnormality is seen. Dictated by: Layne French M.D. on 02/17/2024 at 11:47 US - DVT: Radiologist's Impression: PROCEDURE: US PERIPH VENOUS LOW EXTREM RT INDICATIONS: swelling TECHNIQUE: Real-time imaging, as well as color and pulse Doppler interrogation, were performed of the lower extremity deep veins from the inguinal ligament to the popliteal fossa, with documentation of the visualized calf veins. COMPARISON: None. FINDINGS: The common femoral, femoral, popliteal, and the visualized calf veins are normally compressible, and free of intraluminal thrombus. Color and pulse Doppler demonstrate normal phasic intraluminal flow. There is normal augmentation response to distal compression maneuver. IMPRESSION: No findings of lower extremity deep venous thrombosis. Dictated by: Layne French M.D. on 02/17/2024 at 13:49 ECG Data Attestation EKG: I personally reviewed and interpreted this ECG as follows: Prior ECG tracings: available for review Interpretation: Normal sinus rhythm rate 91 PA interval 198 QRS [address] changes MDM Narrative Medical decision making narrative: MDM CC: Right ankle swelling Complicating co-morbidities: Endocarditis, CHF gout Medical records reviewed: Previous ED visits Differential considered: Cellulitis DVT congestive heart failure gout Exam documented above, pertinent findings include: Patient does have swelling in his right medial ankle. There is very mild area of erythema there is no streaking no abscess or ulcer. Calf and leg itself are not significantly tender. Good strong distal pedal pulse Lab Test results independently reviewed as above. Pertinent findings: D-dimer 1536 previously 1610 and prior 1454 Troponin negative BNP 203 WBC 10.5 hemoglobin 14.6 hematocrit 42.7 platelets 210 Sodium 135 potassium 4.4 chloride 105 bicarb 20 creatinine 0.9 Uric acid 6.2 Independently reviewed EKG as above no ischemia Imaging studies independently reviewed: Chest x-ray no acute cardiopulmonary process CT angio no pulmonary embolism DVT no DVT Treatments:None Re-evaluations: Patient remained stable no worsening pain Discussion: Patient 68-year-old male who has significant cardiac history presenting today with right ankle swelling and some shortness of breath. He recently returned from [place] about 6 weeks ago. He does not feel like this is gout he does not feel like it is in the joint but his ankle is swollen. There has been no injury. He has good strong pulses. DVT has been ruled out with ultrasound however his D-dimer is quite elevated and with some shortness of breath a few days ago CT angio was ordered. Which is thankfully also negative. Is uric acid is 6.2. Unclear what is causing his right ankle pain is obviously swollen not a DVT not consistent with congestive heart failure. Uric acid is negative although it is still possible it is gout. He does have a mild area of erythema could possibly be cellulitis. At this time will trial on some antibiotics. Discussed with the patient he may continue his allopurinol. At this time unclear what caused his shortness of breath. No evidence of pneumonia pleural effusion pulmonary embolism or acute coronary syndrome. Discharge Plan Departure Patient Disposition: Home Clinical Impression: Cellulitis Instructions: DI for Cellulitis -- Adult Activity Restrictions/Additional Instructions: *You have been diagnosed with cellulitis *What to do: At this time will try course of antibiotics to see if it helps your swelling. You may still continue to take allopurinol and colchicine to see if it helps. Not sure if this is gout related or not. *Continue to take medications as directed Keflex 500 mg twice a day for 7 days, okay to start tomorrow *Follow up with your primary care provider in 2-3 days or call [phone] *Return to ER if you should have increasing redness swelling pain shortness of breath or any new, worsening or concerning symptoms Prescriptions: New cephalexin 500 mg capsule 500 mg PO BID 7 Days Qty: 14 0RF No Action telmisartan 40 mg tablet 40 mg PO DAILY prednisone 20 mg tablet 20 mg PO DAILY Qty: 5 0RF furosemide [Lasix] 20 mg tablet 20 mg PO DAILY Qty: 90 3RF amlodipine 2.5 mg tablet 2.5 mg PO DAILY Qty: 180 3RF tamsulosin [Flomax] 0.4 mg capsule 0.4 mg PO DAILY Qty: 30 0RF Referrals: Viola Garcia MD [Primary Care Provider] - Stand Alone Forms: Patient Portal/API/Survey
[2024-02-17 13:18] LABS: NT-proBNP (BNP-Adult 18+) 203 pg/mL (<125); Troponin I < 0.012 ng/mL (0.01-0.034)
--- NOTE | 2024-02-17 13:28 | DI.US.S_ITS ---
PROCEDURE: US PERIPH VENOUS LOW EXTREM RT INDICATIONS: swelling TECHNIQUE: Real-time imaging, as well as color and pulse Doppler interrogation, were performed of the lower extremity deep veins from the inguinal ligament to the popliteal fossa, with documentation of the visualized calf veins. COMPARISON: None. FINDINGS: The common femoral, femoral, popliteal, and the visualized calf veins are normally compressible, and free of intraluminal thrombus. Color and pulse Doppler demonstrate normal phasic intraluminal flow. There is normal augmentation response to distal compression maneuver. IMPRESSION: No findings of lower extremity deep venous thrombosis. Dictated by: Layne French M.D. on 02/17/2024 at 13:49 Approved by: Layne French M.D. on 02/17/2024 at 13:49
[2024-02-17 13:38] LABS: D Dimer 1536 ng/ml (<500)
[2024-02-17 13:43] LABS: Uric Acid 6.2 mg/dL (3.5-8.5)
--- NOTE | 2024-02-17 14:24 | DI.CT.S_ITS ---
PROCEDURE: CT ANGIO CHEST PE PROTOCOL INDICATIONS: short of breath high dimer TECHNIQUE: After the administration of intravenous contrast, 2 mm thick sections acquired from the pulmonary apices to the posterior costophrenic angles. 3-dimensional maximum intensity projection (MIP) coronal and sagittal reformats were then acquired through the thorax. For radiation dose reduction, the following was used: automated exposure control, adjustment of mA and/or kV according to patient size. COMPARISON: [facility], CT, CT ANGIO CHEST PE PROTOCOL, 09/04/2022, 8:23. FINDINGS: Image quality: Diagnostic. Pulmonary arteries: Pulmonary arteries are normal in size, and demonstrate no intraluminal filling defects to suggest central pulmonary embolism. Lower Neck: No enlarged lymph nodes. Thyroid: No thyroid nodules which require sonographic follow up, per consensus guidelines. Axillae: No enlarged lymph nodes. Chest Wall: Unremarkable. Bones: Unremarkable. Lungs and Pleura: No pneumothorax or pleural effusions. No consolidation or suspicious nodules. Heart: Heart size is normal. No pericardial effusion. A right atrial appendage clip is in place. Thoracic Vessels: No aortic aneurysm. Mediastinum and Liliana: No enlarged lymph nodes. Esophagus: No wall thickening. There is a small hiatal hernia. Upper Abdomen: Visualized upper abdomen solid organs and bowel loops appear normal. IMPRESSION: No pulmonary embolus. No acute cardiopulmonary process. Dictated by: Layne French M.D. on 02/17/2024 at 15:34 Approved by: Layne French M.D. on 02/17/2024 at 15:38
--- NOTE | 2024-02-17 14:50 | PC.NURSE ---
Right knee pain and swelling (above patella); also at right ankle. Pt reports he has hx of gout but states it does not feel like gout. Pt right ankle slightly warmer; however not red. Pt states he has been having difficulty walking due to pain. Pt reports travel in December from [place]. Reports heart surgery in May. Respirations regular and unlabored. No pitting edema noted.
[2024-02-17] MEDS: cephALEXin 250 MG CAPSULE 500 MG PO (16:55)
--- NOTE | 2024-02-17 17:04 | PC.NURSE ---
Addendum entered by Mary Turner R.N. 02/17/24 17:04: Perfusion. Cap refill <2 sec. Original Note: Reassess; no change. Pt able to walk w/ walker.
== END 2024-02-17 17:06 | disposition home or self-care (01) ==
PROVIDERS: Emergency Provider Emergency Medicine; PCP Family Medicine
DX: L03.115 Cellulitis of right lower limb (principal); R06.02 Shortness of breath
CPT/HCPCS: 36415; 71045; 71275; 80053; 83605; 83880; 84484; 84550; 85025; 85379; 85610; 93005; 93971; 99284; Q9967